=== PATIENT | female | born 1995 ===

== ENCOUNTER 2020-05-22 12:33 | Outpatient (REF) | payer MEDICAID, SELFPAY | END 2020-05-22 12:34 | disposition home or self-care (01) | LOC: HO.LAB 12:33 | PROVIDERS: Visit Provider Internal Medicine | DX: Z20.828 Contact with and (suspected) exposure to other viral communicable diseases (principal) | CPT/HCPCS: C9803; U0003 ==

== ENCOUNTER 2020-08-03 09:26 | Outpatient (REF) | payer MEDICAID, SELFPAY ==
[2020-08-04 12:01] LABS: BV Int Neg Control Negative (Negative); BV Int Pos Control Positive (Positive)
[2020-08-05 03:51] LABS: C. trachomatis RNA TMA NOT DETECTED (NOT DETECTED); N. gonorrhoeae RNA TMA NOT DETECTED (NOT DETECTED)
== END 2020-08-03 09:27 | disposition home or self-care (01) ==
LOC: HO.LAB 09:26
PROVIDERS: Visit Provider Advanced Practice Midwife
DX: N89.8 Other specified noninflammatory disorders of vagina (principal); Z20.2 Contact with and (suspected) exposure to infections with a predominantly sexual mode of transmission; Z12.4 Encounter for screening for malignant neoplasm of cervix
CPT/HCPCS: 87480; 87491; 87510; 87591; 87660; 88142; 99212

== ENCOUNTER 2021-04-17 15:16 | Outpatient (REF) | payer MEDICAID, SELFPAY ==
[2021-04-17 17:15] LABS: Hematocrit 36.2 % (37.0-47.0); Hemoglobin 11.7 g/dl (12.0-16.0); Mean Corpuscular HGB Conc 32.3 g/dl (31.0-35.0); Mean Corpuscular Hemoglobin 27.2 pg (27.0-33.0); Mean Corpuscular Volume 84.2 fL (80.0-98.0); Mean Platelet Volume 8.7 fL (9.4-12.3); Platelet Count 433 X10*3/uL (160-400); Red Cell Distribution Width 13.4 % (11.0-16.0); White Blood Count 9.5 X10*3/uL (4.8-10.8)
[2021-04-17 17:44] LABS: Alanine Aminotransferase 15 U/L (0-31); Albumin Level 4.5 g/dL (3.5-5.0); Alkaline Phosphatase 90 U/L (39-117); Anion Gap 11 (12-20); Aspartate Amino Transferase 18 U/L (5-31); Bilirubin Total 0.2 mg/dL (0.0-1.0); Blood Urea Nitrogen 10 mg/dL (9-16); C Reactive Protein 0.52 mg/dL (< or = 0.50); Calcium 9.6 mg/dL (8.4-10.2); Carbon Dioxide 28 mmol/L (22-29); Chloride 101 mmol/L (96-108); Estimated Glomerular Filt Rate > 60; Glucose Random 81 mg/dL (60-115); Potassium 4.1 mmol/L (3.3-5.1); Sodium 136 mmol/L (135-145); Total Protein 7.7 g/dL (6.5-8.0)
[2021-04-17 18:07] LABS: TSH reflex Free T4 1.21 uIU/mL (0.32-4.0)
[2021-04-22 16:25] LABS: Transglutaminase Ab IgG <1.0 U/mL; Transglutaminase IgA <1.0 U/mL
== END 2021-04-17 15:17 | disposition home or self-care (01) ==
LOC: HO.LAB 15:16
PROVIDERS: PCP Nurse Practitioner Primary Care; Referring Provider Nurse Practitioner Primary Care; Visit Provider Nurse Practitioner Family
DX: K58.1 Irritable bowel syndrome with constipation (principal); K21.9 Gastro-esophageal reflux disease without esophagitis; R10.11 Right upper quadrant pain; R14.0 Abdominal distension (gaseous); Z12.11 Encounter for screening for malignant neoplasm of colon
CPT/HCPCS: 36415; 80053; 83516; 84443; 85027; 86140; 99202

== ENCOUNTER 2021-07-31 18:07 | Emergency (ER) | payer MEDICAID, SELFPAY ==
[2021-07-31 19:06] VITALS: BP 120/67; PULSE 84; RESP 18; TEMP 36.9; O2SAT 96; BMI 38.0
[2021-07-31 19:53] LABS: Appearance Urine CLEAR; Color Urine YELLOW; Glucose Urine UA NEG (NEG); Leukocyte Esterase Urine NEG (NEG); Nitrite Urine NEG (NEG); UACC Culture Trigger NO; Urine Blood TRACE (NEG); Urine Ketones NEG (NEG); Urine Protein NEG (NEG-TRACE)
[2021-07-31 19:56] LABS: UPreg QC Valid YES; Urine Pregnancy NEGATIVE (NEGATIVE)
[2021-07-31 20:01] LABS: Bacteria Urine TRACE /LPF; RBC Urine 0-2 /HPF (0); Squamous Epithelial Cell Urine TRACE /LPF; WBC Urine 0-2 /HPF (0-4)
[2021-07-31 20:17] LABS: MANUAL DIFF FLAG NO
[2021-07-31 20:27] LABS: Basophils Percent Auto 0.4 % (0-2); Eosinophils Absolute Auto 0.1 X10*3/uL (0.0-0.4); Eosinophils Percent Auto 0.7 % (0-4); Hemoglobin 11.9 g/dl (12.0-16.0); Imm Gran Abs Auto 0.01 X10*3/uL (0.00-0.03); Imm Gran Pct Auto 0.1 % (0.0-0.4); Lymphocytes Absolute Auto 2.3 X10*3/uL (1.2-4.9); Lymphocytes Percent Auto 33.1 % (20-40); Mean Corpuscular HGB Conc 32.2 g/dl (31.0-35.0); Mean Corpuscular Hemoglobin 26.8 pg (27.0-33.0); Mean Corpuscular Volume 83.3 fL (80.0-98.0); Mean Platelet Volume 8.8 fL (9.4-12.3); Monocytes Absolute Auto 0.7 X10*3/uL (0.1-1.2); Monocytes Percent Auto 10.5 % (2-11); Neutrophils Absolute Auto 3.8 x10*3/uL (2.0-8.3); Neutrophils Percent Auto 55.2 % (45-73); Platelet Count 337 X10*3/uL (160-400); Red Blood Count 4.44 X10*6/uL (4.20-5.50); Red Cell Distribution Width 14.3 % (11.0-16.0); White Blood Count 6.9 X10*3/uL (4.8-10.8)
[2021-07-31 20:35] LABS: Anion Gap 12 (12-20); Blood Urea Nitrogen 10 mg/dL (9-16); Calcium 9.1 mg/dL (8.4-10.2); Carbon Dioxide 26 mmol/L (22-29); Chloride 105 mmol/L (96-108); Creatinine Clr Calc Pharmacy 104.5; Estimated Glomerular Filt Rate > 60; Glucose Random 71 mg/dL (60-115); Lipase 33 U/L (8-78); Potassium 3.5 mmol/L (3.3-5.1); Sodium 139 mmol/L (135-145)
== END 2021-07-31 23:21 | disposition left against medical advice (07) ==
PROVIDERS: Emergency Provider Emergency Medicine; PCP Nurse Practitioner Primary Care
DX: R10.84 Generalized abdominal pain (principal); R30.0 Dysuria; R11.0 Nausea
CPT/HCPCS: 36415; 80048; 81001; 81025; 83690; 85025; 99283

== ENCOUNTER 2021-09-26 15:17 | Outpatient (REF) | payer MEDICAID, SELFPAY ==
[2021-09-27 13:09] LABS: BV Int Neg Control Negative (Negative); BV Int Pos Control Positive (Positive)
[2021-09-27 13:57] LABS: CT PCR NOT DETECTED (Not Detect.); NG PCR NOT DETECTED (Not Detect.)
== END 2021-09-26 15:18 | disposition home or self-care (01) ==
LOC: HO.LAB 15:17
PROVIDERS: PCP Nurse Practitioner Primary Care; Visit Provider Obstetrics & Gynecology
DX: Z11.3 Encounter for screening for infections with a predominantly sexual mode of transmission (principal); B96.89 Other specified bacterial agents as the cause of diseases classified elsewhere; N76.0 Acute vaginitis
CPT/HCPCS: 87480; 87491; 87510; 87591; 87660

== ENCOUNTER 2021-10-31 09:55 | Outpatient (REF) | payer MEDICAID, SELFPAY ==
[2021-10-31 14:33] LABS: CT PCR NOT DETECTED (Not Detect.); NG PCR NOT DETECTED (Not Detect.)
[2021-11-01 08:03] LABS: HBsAGNum1 0.23 S/CO (0.00-0.99); HIV AB/AG Nonreactive (Nonreactive); HIV Num 1 0.07 S/CO (0.00-0.99); Hepatitis B Surface Antigen Negative (Negative); ~HepC Num1 0.09 S/CO (0.00-0.79); ~Hepatitis C Antibody Nonreactive (Nonreactive)
[2021-11-01 08:47] LABS: BV Int Neg Control Negative (Negative); BV Int Pos Control Positive (Positive)
[2021-11-01 09:02] LABS: Syphilis Screen Reactive (Nonreactive)
[2021-11-07 13:38] LABS: RPR Quantitative Non-Reactive (Nonreactive); T.Pallidum Particle Agg Test Non-Reactive (Nonreactive)
== END 2021-10-31 09:56 | disposition home or self-care (01) ==
LOC: HO.LAB 09:55
PROVIDERS: PCP Nurse Practitioner Primary Care; Visit Provider Obstetrics & Gynecology
DX: Z01.411 Encounter for gynecological examination (general) (routine) with abnormal findings (principal); Z11.4 Encounter for screening for human immunodeficiency virus [HIV]; B96.89 Other specified bacterial agents as the cause of diseases classified elsewhere; N76.0 Acute vaginitis
CPT/HCPCS: 36415; 86592; 86780; 86803; 87340; 87389; 87480; 87491; 87510; 87591; 87660; 99212

== ENCOUNTER 2021-10-31 11:00 | Outpatient (REF) | payer MEDICAID, SELFPAY | END 2021-10-31 11:01 | disposition home or self-care (01) | LOC: HO.LAB 11:00 | PROVIDERS: PCP Nurse Practitioner Primary Care; Visit Provider Obstetrics & Gynecology | DX: Z13.89 Encounter for screening for other disorder (principal) ==

== ENCOUNTER → 2021-12-10 15:13 | Outpatient (BNVA) | payer MEDICAID, SELFPAY | PROVIDERS: PCP Nurse Practitioner Primary Care; Visit Provider Obstetrics & Gynecology | DX: R76.8 Other specified abnormal immunological findings in serum (principal) | CPT/HCPCS: 99212 ==

== ENCOUNTER → 2022-10-01 14:04 | Outpatient (BNVA) | payer MEDICAID, SELFPAY | PROVIDERS: PCP Nurse Practitioner Primary Care; Visit Provider Obstetrics & Gynecology ==

== ENCOUNTER 2023-01-07 19:02 | Outpatient (REF) | payer MEDICAID, SELFPAY ==
[2023-01-08 15:21] LABS: BV Int Neg Control Negative (Negative); BV Int Pos Control Positive (Positive)
== END 2023-01-07 19:03 | disposition home or self-care (01) ==
LOC: HO.HHCLNP 19:02
PROVIDERS: Visit Provider Nurse Practitioner Primary Care
DX: N89.8 Other specified noninflammatory disorders of vagina (principal)
CPT/HCPCS: 87480; 87510; 87660

== ENCOUNTER 2023-02-05 18:31 | Outpatient (REF) | payer MEDICAID, SELFPAY ==
[2023-02-06 03:24] LABS: CT PCR NOT DETECTED (Not Detect.); NG PCR NOT DETECTED (Not Detect.)
[2023-02-06 16:02] LABS: BV Int Neg Control Negative (Negative); BV Int Pos Control Positive (Positive)
== END 2023-02-05 18:32 | disposition home or self-care (01) ==
LOC: HO.HHCLNP 18:31
PROVIDERS: Visit Provider Registered Nurse
DX: N89.8 Other specified noninflammatory disorders of vagina (principal)
CPT/HCPCS: 0353U; 87480; 87510; 87660

== ENCOUNTER 2023-04-27 10:35 | Outpatient (REF) | payer MEDICAID, SELFPAY ==
[2023-04-28 02:22] LABS: CT PCR NOT DETECTED (Not Detect.); NG PCR NOT DETECTED (Not Detect.)
[2023-04-28 12:08] LABS: BV Int Neg Control Negative (Negative); BV Int Pos Control Positive (Positive)
== END 2023-04-27 10:36 | disposition home or self-care (01) ==
LOC: HO.LNP 10:35
PROVIDERS: PCP Nurse Practitioner Primary Care; Visit Provider Advanced Practice Midwife
DX: N89.8 Other specified noninflammatory disorders of vagina (principal); B00.9 Herpesviral infection, unspecified
CPT/HCPCS: 0353U; 87480; 87510; 87660; 99212

== ENCOUNTER 2023-04-27 10:35 | Outpatient (AMB) | payer MEDICAID, SELFPAY ==
[2023-04-27 10:36] VITALS: BP 112/70; BMI 41.0
--- NOTE | 2023-04-27 10:36 | A.OFFVIS_ITS ---
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 Present (Aidyn) Allergies shellfish derived [SHELLFISH DERIVED] Allergy (Severe, Verified 04/27/23 10:40) SWELLING cat dander [CATS] Allergy (Unknown, Verified 04/27/23 10:40) UNKNOWN crab Allergy (Unknown, Verified 04/27/23 10:40) UNKNOWN DUST Allergy (Unknown, Uncoded 04/27/23 10:40) RASH PEANUT BUTTER Allergy (Unknown, Uncoded 04/27/23 10:40) UNKNOWN Peanut Butter Flavor Allergy (Unknown, Uncoded 04/27/23 10:40) Swelling peanuts Allergy (Unknown, Uncoded 04/27/23 10:40) swollen pollen Allergy (Unknown, Uncoded 04/27/23 10:40) rash shellfish Allergy (Unknown, Uncoded 04/27/23 10:40) Swelling nail polsh remover Adverse Reaction (Intermediate, Uncoded 04/27/23 10:40) Rash Medication List - Last Reconciled 04/27/23 by Madison Oliveira CNM albuterol sulfate 90 mcg/actuation 1 inh inhalation QID cholecalciferol (vitamin D3) 50 mcg PO DAILY fluoxetine 20 mg PO QAM omeprazole 40 mg PO DAILY prenat.vits,maryanne,[id number]-[id number] 1 tab PO BEDTIME sennosides (Natural Senna Laxative) 8.6 mg PO BEDTIME trazodone 0 mg PO valacyclovir (Valtrex) 500 mg PO DAILY Is last menstrual period known: No (not sure stated beginning of MAR) Post menopausal: No HPI vaginal discharge HPI Details Patient notes vaginal discharge it is hard to describe whether not it is white and chunky or has an odor but not a particularly bad 1. She recently had a herpes outbreak but it is already healed she is on day 6 of a Valtrex course that she started she takes it typically for 7 days when she does get an outbreak she has had maybe 3 since 2019 when she was 1st diagnosed when it appeared like a shaving cut but a culture was done and she was shocked to find out it was herpes at the time. This outbreak started and she has been having a pain in her upper left thigh there is no swelling that she can perceive (nor I) She has a new partner for the last 3 or 4 months and uses condoms with him he has had a modification to his penis with Perles implanted in them. She is wondering if that injured her in some way. She does not really keep track of her. 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 [facility]LY [facility] Medical History Depression Surgical History Horseheads teeth removed Patient Tobacco Use Status: Never used Tobacco Female Reproductive History Menstrual Age of Menarche: 10 Duration of menses: 6-7 days control method: none Total pregnancies: 2 Full term: 1 Number of Living Children: 1 Ab spontaneous: 1 Date of last pap smear: 08/06/20 (negative) History of abnormal pap smear: Yes Physical Exam Vital Signs: Last Vital Signs BP 112/70 04/27/23 10:36 BMI result Body Mass Index 41.0 Other: No evidence of herpetic lesion at this point and no lymphanopathy palpable. External Female Exam: normal external appearance and normal appearance of the urethra Speculum Exam - Vagina: normal appearance of the vagina and normal vaginal discharge Speculum Exam - Cervix: normal appearance of the cervix and Cervical os closed Assessment & Plan Assessment & Plan (1) Vaginal discharge: Code(s): N89.8 - Other specified noninflammatory disorders of vagina (2) Recurrent HSV (herpes simplex virus): Code(s): B00.9 - Herpesviral infection, unspecified Plan Discussed safer sex she always uses condoms that is what she wants to use for control. Discussed the possibility that what she is feeling is inflammation of the lymph glands having to do with the herpes outbreak that is now completely healed over. She is going to finish the Valtrex to day 7 which is her usual plan. I recommend she start keeping careful track of her menstrual cycle. Also reviewed whether not she been screen for diabetes with her annual exams and she did have fasting blood work done last year so she probably has been. We will see her for an annual exam coming up I suspect that her symptoms will probably ameliorate. Discussed the possibility also that she may have some discomfort from his modification. Coding Level of Care Code Est Pt Level 3 ([id number]) Diagnoses Vaginal discharge N89.8 Recurrent HSV (herpes simplex virus) B00.9
== END 2023-04-27 11:22 | disposition home or self-care (01) ==
PROVIDERS: PCP Nurse Practitioner Primary Care; Visit Provider Advanced Practice Midwife
DX: N89.8 Other specified noninflammatory disorders of vagina (principal); B00.9 Herpesviral infection, unspecified
CPT/HCPCS: 99213

== ENCOUNTER 2023-06-17 14:59 | Outpatient (AMB) | payer MEDICAID, SELFPAY ==
--- OUTSIDE RECORDS SUMMARY | 2023-06-17 15:01 | XMS_ITS | Continuity of Care Document ---
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, Shirley Leyva Primary Care Physician Encounter [facility] Date(s): 11/06/22 - 11/07/[address] [address]- Discharge Disposition: A-D/C Home Attending Physician: Isabel Webster MD Admitting Physician: Isabel Webster MD Referring Physician: Isabel Webster MD Allergies, Adverse Reactions, Alerts Substance Reaction Severity Status shellfish Facial swelling Active Cats Sneezing Active Dust Sneezing Active Peanuts YAW - Difficulty in breathing Active Medications albuterol CFC free 90 mcg/inh inhalation aerosol 2 puffs, Inhalation, 4 times a day, PRN for wheezing, # 25 Gm, 1 Refills, Maintenance, Aerosol Start Date: 12/08/11 Status: Ordered Doxepin By Mouth, 0 Refills, Maintenance, 11/05/22 12:42:00 EDT, Partial fill upon patient request if the prescription is for a schedule II opioid drug. Start Date: 11/05/22 Status: Ordered Gabapentin See Instructions, By Mouth, 0 Refills, Maintenance, 11/05/22 12:41:00 EDT, Partial fill upon patient request if the prescription is for a schedule II opioid drug. Start Date: 11/05/22 Status: Ordered Nabumetone By Mouth, Daily, 0 Refills, Maintenance, 11/05/22 12:42:00 EDT, Partial fill upon patient request if the prescription is for a schedule II opioid drug. Start Date: 11/05/22 Status: Ordered Omeprazole See Instructions, By Mouth Daily, 0 Refills, Maintenance, 11/05/22 12:47:00 EDT, Partial fill upon patient request if the prescription is for a schedule II opioid drug. Start Date: 11/05/22 Status: Ordered OxyCODONE 5mg/5mL Liquid 5 mg, Solution, By Mouth, Every 6 hours, PRN for Pain , Severe, Routine, 11/06/22 16:39:00 EDT Start Date: 11/06/22 Stop Date: 11/07/22 Status: Discontinued propranolol 10 mg oral tablet See Instructions, 1 tablet By Mouth 2 times a day, Refills 0, Maintenance, 11/05/22 12:41:00 EDT, Instructions Replace Required Details, Partial fill upon patient request if the prescription is for aschedule II opioid drug. Start Date: 11/05/22 Status: Ordered Valtrex 1 gm oral tablet 1 tablet = 1 Gm, By Mouth, 2 times a day, 0 Refills, Maintenance, 11/05/22 12:42:00 EDT, Partial fill upon patient request if the prescription is for a schedule II opioid drug. Start Date: 11/05/22 Status: Ordered Problem List Condition Confirmation Course Effective Dates Status Health St atus Informant Asthma 1 Confirmed Active Severe obesity Confirmed Active 1Has not used inhaler in 3 years Vital Signs Most recent to oldest [Reference Range]: 1 2 3 Height 153 cm (11/06/22 7:21 PM) 153 cm (11/06/22 2:56 PM) 153 cm (11/05/22 12:52 PM) Weight 93.8 kg (11/06/22 7:21 PM) Oxygen Saturation [94-100 %] 100 % (11/07/22 7:00 AM) 99 % (11/07/22 3:00 AM) 99 % (11/06/22 11:00 PM) Pulse Rate [55-90 bpm] 93 bpm *H* (11/07/22 7:00 AM) 63 bpm (11/07/22 3:00 AM) 71 bpm (11/06/22 11:00 PM) Body Mass Index [18.5-24.99 kg/m2] 40.07 kg/m2 *>HHI* (11/06/22 7:21 PM) Blood Pressure [90-138/55-84 mm Hg] 135/77mm Hg (11/07/22 7:00 AM) 119/63mm Hg (11/07/22 3:00 AM) 112/54mm Hg (11/06/22 11:00 PM) Respiratory Rate [16-30 br/min] 20 br/min (11/07/22 7:00 AM) 18 br/min (11/07/22 6:57 AM) 18 br/min (11/07/22 3:00 AM) Temperature [96.8-100.4 DegF] 97.7 DegF (11/07/22 7:00 AM) 97.9 DegF (11/07/22 3:00 AM) 98.7 DegF (11/06/22 11:00 PM) Liters per Minute 6 L/min (11/06/22 5:45 PM) 6 L/min (11/06/22 5:30 PM) Mode of Delivery (Oxygen) Room air (11/07/22 7:00 AM) Room air (11/07/22 3:00 AM) Room air (11/06/22 11:00 PM) Blood pressure sites Arm, left (11/07/22 7:00 AM) Arm, left (11/07/22 3:00 AM) Arm, left (11/06/22 11:00 PM) Temperature Route Oral (11/07/22 7:00 AM) Oral (11/07/22 3:00 AM) Oral (11/06/22 11:00 PM) Dry Weight 93.8 kg (11/06/22 7:21 PM) 93.8 kg (11/06/22 2:56 PM) 95.3 kg (11/05/22 12:52 PM) Weight Obtained Via Patient/family state d (11/06/22 7:21 PM) Dry Weight Obtained Via Standing scale (11/06/22 2:56 PM) Patient/family stated (11/05/22 12:52 PM) Social History Social History Type Response Smoking Status Former smoker entered on: 08/01/17 Sex History and physical note * Event Display: History and Physical Hospital Authored Date: * Event Display: History and Physical Hospital Authored Date: Note * Event Display: Adult Preadmission Health Questionnaire Authored Date: * Elyse Chase RN: PERFORM Event Display: Patient Education/Instruction Authored Date: Inpatient Adult Discharge Instructions [address] [address] Name: TOO MEDEIROS : 1995 Visit: 11/06/2022 12:35:00 Current Date: 11/07/2022 09:28 Account: [id number] Inpatient Adult Discharge Instructions We would like to thank you for allowing us to assist you with your healthcare needs. The following includes patient education materials and information regarding your injury/illness. Our entire staffstrives to provide an excellent experience for our patients and their families. PLEASE ENSURE YOU FOLLOW-UP PER THE INSTRUCTIONS BELOW! ?? YOUR OPINION IS IMPORTANT TO US! Please complete the survey you may receive by mail or email. Your feedback will be used to make improvements to the healthcare experiences of our patients and their families. Surveys are administered by [employer] ?? If further treatment with your primary care physician or another doctor is recommended, it is important for you to keep the appointment. Call your primary care physician or return to the Emergency Department immediately if your condition worsens, fails to improve, or new symptoms develop. If you need to find a doctor, you can call [facility] [employer] for a referral at [phone] or toll free at [phone]) or log in to [email or web address].. ?? You can view and manage your care through the patient portal or by using a health care carlitos of your choosing. [employer] is a website that allows you to securely view your medical information including your hospital discharge summary, office visit summaries, medications and follow-up visits. You can also request appointments, renew medications, and request access to your medical information using a health care carlitos of your choosing, or just ask a question. You can enroll at [email or web address] or register during your next office visit. You have been discharged from [facility], Patient Care Unit: SW6. If you have any questions regarding these instructions after you leave, please call us and we will be happy to assist you. [facility] Your Care Team Attending Physician Isabel Webster MD Consulting Providers Isabel Webster MD Discharging Providers Sav[place] MD, Isabel L Reason for Admission SCOTT SEPTOPLASTY TONSILLECTOMY OVN CS Tests Performed Below is a partial list of the tests performed during your hospitalization. You may have had other tests and procedures not included in this list. Please discuss all test results with your provider. Primary Care Provider Claudia LING, Shirley Leyva Advance Directive Health Care Proxy on File No Patient has a Designated Caregiver: No Discharge Vitals Temperature: 97.7 DegF Height: 153 cm Pulse Rate:??93 bpm??High Weight: 93.8 kg Respiratory Rate: 20 br/min Body Mass Index:??40.07 kg/m2??Critical Systolic Blood Pressure: 135 mm Hg Body surface area: 2 Diastolic Blood Pressure: 77 mm Hg ?? Oxygen Saturation: 100 % ?? Studies Pending All tests and labs ordered during this hospital stay have been completed unless listed below. Please discuss all pending results with your provider listed above in these instructions. ?? Pathology Tissue Request ([id number]) What to do next Instructions From Your Doctor Discharge Orders Instructions from your Care Team Refer to attached MD postoperative discharge instructions Call MD for any periorbital ecchymosis or visual changes Discharge Prescriptions : Written Wound??care to??nares : Change drip pad under nose as needed NO blowing nose. NO straws. Sneeze with mouth open Do NOT bend over at waist. NO heavy lifting or straining Office will call for appointment in 1 month. Appointment next week not needed- will cancel You Need to Schedule the Following Appointments Follow Up with??Isabel Webster Where: [address] [place] [address]- Business (1) Follow Up with??Shirley Taylor When:??In 0 days Where: [address] [facility], [place] [address]- Business (1) Discharge Medications BERMAN MEDEIROS TOO :1995 Visit Date:11/06/2022 Medications: Please continue your medications until treatment is completed or stopped by your provider. Medications not listed below should be discontinued. Discuss any questions related to medications with your provider. What How Much When Instructions Next Dose Unchanged Albuterol (albuterol CFC free 90 mcg/ inh inhalation aerosol) 2 puff(s) Inhalation 4 times a day as needed for for wheezing as ordered Unchanged Doxepin Oral Unchanged Gabapentin See instructions By Mouth ?? as ordered Unchanged Nabumetone Oral Daily Unchanged Omeprazole See instructions By Mouth Daily ?? as ordered Unchanged Propranolol (propranolol 10 mg oral tablet) See instructions 1 tablet By Mouth 2 times a day ?? as ordered Unchanged ValACYclovir (Valtrex 1 gm oral tablet) 1 tab(s) Oral Twice a day as ordered Test Results Below is a partial list of the most recent Laboratory test results done prior to this discharge. You may have had other tests and procedures not included in this list. Please discuss all test resultswith your provider. Allergies (NKA means No Known Allergies) Cats??(Sneezing) Dust??(Sneezing) Peanuts??(YAW - Difficulty in breathing) shellfish??(Facial swelling) Problems Active Problems??(2) Asthma?? Severe obesity?? Education Materials Below is the list of Educational Leaflet Providered with your Discharge Instructions. Surgery Medical Daystay Surgical Overnight Discharge Instructions?? Valuables and Belongings I fully understand and agree that [facility] accepts no responsibility for all my personal property including clothing, toilet articles, radios, jewelry, dentures, hearing aids, rings, money, or any other property that is in my possession or is brought to me after admission. I understand certain valuables may be placed in a hospital safe for a short period of time. I understand that the hospital is not liable for loss or damage due to accident, fire, or other natural occurrence while said property is in the safe. I accept full responsibility for any personal property that I keep with me, and will not hold the hospital responsible in case of loss or disappearance. I acknowledge that i have been encouraged to send valuables and belongings home. ?? Review of Valuable and Belonging List: With patient Date for Pt to Sign Valuables/Belongings: 11/06/22 19:29:00 ?? Other Discharge Information ? Pulmonary Rehab Status?? Pulmonary Rehab Discharge Status?? Respiratory Rate: 20 br/min ? Common Emergency Awareness Tips IS IT A STROKE? Act FAST and Check for these signs: FACE Does the face look uneven? ARM Does one arm drift down? SPEECH Does their speech sound strange? TIME Call at any sign of stroke ?? Heart Attack Signs Chest discomfort: Most heart attacks involve discomfort in the center of the chest and lasts more than a few minutes, or goes away and comes back. It can feel like uncomfortable pressure, squeezing, fullness or pain. Discomfort in upper body: Symptoms can include pain or discomfort in one or both arms, back, neck, jaw or stomach. Shortness of breath: With or without discomfort. Other signs: Breaking out in a cold sweat, nausea, or lightheaded. Remember, MINUTES DO MATTER. If you experience any of these heart attack warning signs, call to get immediate medical attention! ?? Smoking can increase your chances of developing chronic health problems and can cause harmful effects to other family members in your house. If you smoke, you are strongly encouraged to quit. Please call [facility] [employer] [facility] at [phone] or [phone] ([phone]) or log in to [email or web address] for referrals to smoking cessation programs. ?? 290 Suicide & Crisis Lifeline is available 22/12 if you or someone you know needs to find a reason to keep living. By calling 811 you'll be connected to a skilled, trained counselor at a crisis center in your area. INPATIENT DISCHARGE INSTRUCTIONS SIGNATURE PAGE CULLEN MENDESOTOO Location:[facility] Registration Date and Time:11/06/2022 12:35 EDT Primary Care Physician: Shirley Taylor NP, Attending Physician: Isabel Webster MD, I TOO BANGURA, have received the above patient education materials/instructions and have verbalized understanding. If ambulance or transport services are being used I further acknowledge being given a choice of service. ?? If you need to contact me, please call me at this number: . Patient/Cook House Supervisor Name: Patient/Cook House Supervisor Signature: Relationship to Patient: Witness Name/Signature: Date: * Beverly Wright RN: PERFORM, SIGN, VERIFY Event Display: Patient Education Handout Authored Date: [id number] * Beverly Wright RN: PERFORM Event Display: Patient Education Leaflets Authored Date: [id number] Surgery Medical Daystay Surgical Overnight Discharge Instructions ?? 295 Medical Daystay/Surgical Overnight Discharge Instructions ? Since your coordination and judgment may be altered by medication and/or anesthesia, a responsible adult must drive you home from the hospital. ? If you have received medication for pain or sedation while under our care, you should not drive, operate machinery, drink alcohol, or sign any legal documents for 24 hours.?? You should have someone with you at home tonight. ? Remain at home the day of discharge.?? You may be up and about unless otherwise instructed by your physician. ? You may resume your daily prescription medication schedule.?? Any depressant medication should be avoided for 24 hours unless otherwise instructed by your surgeon or anesthesiologist. ? Call your physician for a follow-up appointment.? If you experience unusual or severe pain not relied by your pain medication, excessive bleedingor drainage, persistent nausea and vomiting, excessive swelling or redness, foul odor from incisionsite or fever over 100.6F, you need to call your physician. ? A follow-up phone call by a nurse will be made the day after your procedure.?? If you have stayed with us over night, you will not be receiving a follow-up phone call. ? Nausea and vomiting are a common side effect of prescription pain medication.?? We recommend that pills are not taken on an empty stomach.?? While taking any prescription pain medication you should not drive or drink alcohol. ? Cardiology * Event Display: Cardiac Rhythm Strips Authored Date: Hospital Progress note * Elyse Chase RN: PERFORM, SIGN, VERIFY Event Display: Progress Note Hospital Authored Date: Patient: TOO BANGURA Age: 27 years Sex: Female : 1995 Associated Diagnoses: None Author: Elyse Chase RN Findings Problem Related to Alteration in Comfort : Alteration in Comfort/new 11/07/2022 2:00 EDT Alteration in Comfort Related to Surgery Goals & Outcomes: Comfort Pt will report acceptable level of comfort & pain control, Pt will state importance of adhering to pain strategy regime, Pt will demonstrate necessary skills to manage pain, Non-verbal indicators will indicate comfort/pain control Interventions Implemented: Comfort Assess pain using appropriate pain scale/tools, Assess aggravating factors & prevent them accordingly, Assess alleviating factors & promote them accordingly BH Goals/Interventions, Comfort Yes Comfort, Problem Start 11/07/2022 2:55 Reviewed plan with, Comfort Patient Patient Progression, Comfort Pt progressing according to plan Comfort, Problem Ongoing Yes . Evaluation Alert and oriented times 3. Pt resting in the bed at present with head of bed elevated. Verbalized that she is looking forward to going home today once seen by ENT. Dexamethasone given as ordered. Occasional nasal dripping of blood continued which pt wiped with gauze. IV site covered and pt showered. Verbalized agreement with plan for discharge to home. Discharge instructions reviewed with pt verbalizing understanding and acceptance of info. Opted to ambulate to the door accompanied by the nurse. ENT discharge instructions accompanied paperwork. Denied questions at discharge. PRN angio remocved prior to discharge. 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 * Isabel Webster MD: PERFORM, SIGN, VERIFY Event Display: Progress Note Hospital Authored Date: Patient: TOO BANGURA Age: 27 years Sex: Female : 1995 Associated Diagnoses: None Author: Isabel Webster MD POD1 tonsillectomy septoplasty and turbinate reduction STEPHEN overnight, pain controlled Slept poorly No desats C/o uvular swelling Tolerating po Review of Systems Review of Systems Cardiovascular: no chest pain. Physical Examination Vital Signs Vitals : VITALS 11/07/2022 7:57 EDT Early Warning Score 2.00 11/07/2022 7:00 EDT Temperature 97.7 DegF Temperature Route Oral Pulse Rate 93 bpm H Respiratory Rate 20 br/min Systolic Blood Pressure 135 mm Hg Diastolic Blood Pressure 77 mm Hg Blood pressure sites Arm, left Pulse Pressure 58 mm Hg Oxygen Saturation 100 % Mode of Delivery (Oxygen) Room air 11/07/2022 6:58 EDT Early Warning Score 2.00 11/07/2022 6:57 EDT Respiratory Rate 18 br/min Pain Intensity 10 11/07/2022 6:56 EDT Pain Intensity 10 11/07/2022 6:28 EDT Pain Intensity 10 11/07/2022 3:36 EDT Early Warning Score 2.00 11/07/2022 3:00 EDT Temperature 97.9 DegF Temperature Route Oral Pulse Rate 63 bpm Respiratory Rate 18 br/min Systolic Blood Pressure 119 mm Hg Diastolic Blood Pressure 63 mm Hg Blood pressure sites Arm, left Oxygen Saturation 99 % Mode of Delivery (Oxygen) Room air 11/07/2022 2:52 EDT 1 - 10 pain scale score 8 11/07/2022 0:45 EDT Early Warning Score 0.00 11/07/2022 0:45 EDT Respiratory Rate 18 br/min Pain Intensity 6 11/06/2022 23:58 EDT Early Warning Score 0.00 11/06/2022 23:44 EDT Respiratory Rate 18 br/min Pain Intensity 6 11/06/2022 23:36 EDT Early Warning Score 0.00 11/06/2022 23:00 EDT Temperature 98.7 DegF Temperature Route Oral Pulse Rate 71 bpm Respiratory Rate 18 br/min Systolic Blood Pressure 112 mm Hg Diastolic Blood Pressure 54 mm Hg L Blood pressure sites Arm, left Oxygen Saturation 99 % Mode of Delivery (Oxygen) Room air 11/06/2022 22:44 EDT Pain Intensity 8 11/06/2022 19:44 EDT Early Warning Score 0.00 11/06/2022 19:33 EDT Early Warning Score 0.00 11/06/2022 19:33 EDT Respiratory Rate 17 br/min Pain Intensity 11/06/2022 19:30 EDT Early Warning Score 0.00 11/06/2022 19:22 EDT Early Warning Score 0.00 11/06/2022 19:21 EDT Height 153 cm Weight 93.8 kg Dry Weight 93.8 kg Body Mass Index 40.07 kg/m2 >HHI Body surface area 2 BSA Emmons 1.9 Weight lb/oz 206 lb 13 oz Temperature 99.5 DegF Temperature Route Axillary Pulse Rate 93 bpm H Respiratory Rate 16 br/min Systolic Blood Pressure 137 mm Hg Diastolic Blood Pressure 70 mm Hg Blood pressure sites Arm, left Mean Arterial Pressure 92 mm Hg Pulse Pressure 67 mm Hg Oxygen Saturation 99 % Mode of Delivery (Oxygen) Room air 11/06/2022 19:16 EDT Early Warning Score 2.00 11/06/2022 19:00 EDT Temperature 98.2 DegF Temperature Route Temporal Heart Rate Monitored 75 bpm Respiratory Rate 16 br/min Vented No Systolic Blood Pressure 134 mm Hg Diastolic Blood Pressure 86 mm Hg H Blood pressure sites Arm, right Pulse Pressure 48 mm Hg Oxygen Saturation 97 % Mode of Delivery (Oxygen) Room air Pain Location Throat 1 - 10 pain scale score 6 11/06/2022 18:45 EDT Heart Rate Monitored 74 bpm Respiratory Rate 16 br/min Vented No Systolic Blood Pressure 138 mm Hg (Modified) Diastolic Blood Pressure 94 mm Hg H (Modified) Blood pressure sites Arm, right Pulse Pressure 44 mm Hg (Modified) Oxygen Saturation 96 % Mode of Delivery (Oxygen) Room air 11/06/2022 18:30 EDT Heart Rate Monitored 68 bpm Respiratory Rate 16 br/min Respiratory Rate 16 br/min Vented No Systolic Blood Pressure 137 mm Hg Diastolic Blood Pressure 84 mm Hg Blood pressure sites Arm, right Pulse Pressure 53 mm Hg Oxygen Saturation 96 % Mode of Delivery (Oxygen) Room air Pain Location Throat Pain Intensity 7 Pain Intensity 7 1 - 10 pain scale score 7 11/06/2022 18:19 EDT Respiratory Rate 13 br/min L Pain Intensity 10 11/06/2022 18:15 EDT Temperature 97.7 DegF Temperature Route Temporal Heart Rate Monitored 71 bpm (Modified) Respiratory Rate 15 br/min L Vented No Systolic Blood Pressure 126 mm Hg Diastolic Blood Pressure 70 mm Hg Blood pressure sites Arm, right Pulse Pressure 56 mm Hg Oxygen Saturation 95 % Mode of Delivery (Oxygen) Room air Pain Location Throat 1 - 10 pain scale score 10 11/06/2022 18:08 EDT Heart Rate Monitored 73 bpm Respiratory Rate 16 br/min Vented No Systolic Blood Pressure 116 mm Hg Diastolic Blood Pressure 70 mm Hg Pulse Pressure 46 mm Hg Oxygen Saturation 94 % 11/06/2022 18:00 EDT Heart Rate Monitored 81 bpm Heart Rate Monitored 81 bpm Respiratory Rate 23 br/min Vented No Vented No Systolic Blood Pressure 139 mm Hg H Systolic Blood Pressure 116 mm Hg Diastolic Blood Pressure 90 mm Hg H Diastolic Blood Pressure 70 mm Hg Blood pressure sites Arm, right Blood pressure sites Arm, right Pulse Pressure 49 mm Hg Pulse Pressure 46 mm Hg Oxygen Saturation 97 % Oxygen Saturation 97 % Mode of Delivery (Oxygen) Room air Mode of Delivery (Oxygen) Room air Pain Location Throat Pain Intensity 10 1 - 10 pain scale score 10 11/06/2022 17:45 EDT Heart Rate Monitored 89 bpm Respiratory Rate 21 br/min Vented No Systolic Blood Pressure 139 mm Hg H Diastolic Blood Pressure 90 mm Hg H Blood pressure sites Arm, right Pulse Pressure 49 mm Hg Oxygen Saturation 99 % Liters per Minute 6 L/min Mode of Delivery (Oxygen) Simple face mask 11/06/2022 17:30 EDT Temperature 97.8 DegF Temperature Route Temporal Heart Rate Monitored 91 bpm H Vented No Systolic Blood Pressure 141 mm Hg H Diastolic Blood Pressure 96 mm Hg H Blood pressure sites Arm, right Pulse Pressure 45 mm Hg Oxygen Saturation 98 % Liters per Minute 6 L/min Mode of Delivery (Oxygen) Simple face mask 11/06/2022 14:56 EDT Height 153 cm Dry Weight 93.8 kg Temperature 98.5 DegF Temperature Route Temporal Pulse Rate 65 bpm Respiratory Rate 10 br/min L Systolic Blood Pressure 105 mm Hg Diastolic Blood Pressure 53 mm Hg L Mean Arterial Pressure 70 mm Hg Oxygen Saturation 99 % Mode of Delivery (Oxygen) Room air 1 - 10 pain scale score 6 . Weight : Weight lb/oz 11/06/2022 19:21 EDT Weight lb/oz 206 lb 13 oz . BMI : Body Mass Index 11/06/2022 19:21 EDT Body Mass Index 40.07 kg/m2 >HHI . Awake alert NAD Nose hemostatic Tonsillar fossae hemostatic Uvula edematous No increased WOB, AP: Stable after Tonsillectomy, septoplasty and turbinate reduction. No desats. Please give 6mg decadron for uvular edema - order placed. Discharge after decadron Dental soft diet Rx sent to patient's pharmacy through office EMR - Tylenol, motrin and oxycodone Signed: Isabel Webster MD * Esthela Antonio RN: PERFORM, SIGN, VERIFY Event Display: Progress Note Hospital Authored Date: Patient: TOO BANGURA Age: 27 years Sex: Female : 1995 Associated Diagnoses: None Author: Esthela Antonio RN Findings Problem Related to Alteration in Comfort : Alteration in Comfort/new 11/07/2022 2:00 EDT Alteration in Comfort Related to Surgery Goals & Outcomes: Comfort Pt will report acceptable level of comfort & pain control, Pt will state importance of adhering to pain strategy regime, Pt will demonstrate necessary skills to manage pain, Non-verbal indicators will indicate comfort/pain control Interventions Implemented: Comfort Assess pain using appropriate pain scale/tools, Assess aggravating factors & prevent them accordingly, Assess alleviating factors & promote them accordingly BH Goals/Interventions, Comfort Yes Comfort, Problem Start 11/07/2022 2:55 Reviewed plan with, Comfort Patient Patient Progression, Comfort Pt progressing according to plan Comfort, Problem Ongoing Yes . Nursing Data Vital Signs : VITAL SIGNS SECTION 11/07/2022 3:00 EDT Temperature 97.9 DegF Temperature Route Oral Pulse Rate 63 bpm Respiratory Rate 18 br/min Systolic Blood Pressure 119 mm Hg Diastolic Blood Pressure 63 mm Hg Blood pressure sites Arm, left Oxygen Saturation 99 % Mode of Delivery (Oxygen) Room air 11/06/2022 23:00 EDT Temperature 98.7 DegF Temperature Route Oral Pulse Rate 71 bpm Respiratory Rate 18 br/min Systolic Blood Pressure 112 mm Hg Diastolic Blood Pressure 54 mm Hg L Blood pressure sites Arm, left Oxygen Saturation 99 % Mode of Delivery (Oxygen) Room air 11/06/2022 19:21 EDT Temperature 99.5 DegF Temperature Route Axillary Pulse Rate 93 bpm H Respiratory Rate 16 br/min Systolic Blood Pressure 137 mm Hg Diastolic Blood Pressure 70 mm Hg Blood pressure sites Arm, left Mean Arterial Pressure 92 mm Hg Pulse Pressure 67 mm Hg Oxygen Saturation 99 % Mode of Delivery (Oxygen) Room air . Narrative/Incidental Please see interventions listed in care plan(s) above. Patient is alert and oriented x4. Denies chest pain. No edema, +PP and +CMS. C- boots on bilateral lower extremities. Lungs are clear on room air and denies SOB. Non productive cough noted. On continuous O2 monitoring, sating >97% on room air. Abdomen is soft, round, and non tender. Bowel sounds present and denies flatus. Tolerating dental soft diet and denies nausea and vomiting. Last bowel movement /7. Voiding clear yellow urine. Skin is intact. Scant blood from nose. Patient reports 8/10 pain, especially when swallowing. Medicated with scheduled medications and PRN ibuprofen and oxycodone, with good effect. Jaw bra on neck for comfort. Ambulating as a standby, steady gait. Patient is resting comfortably in bed, wheels locked, in lowest position. Call snow is in reach and patient rings appropriately.. Patient Care team information Care Team Personnel Name: Shirley Taylor NP Position: [facility] Outreach Member Role: PCP Address: Address: [address], [place] [address] Name: Karena Gee Position: [facility] TA Member Role: Patient Care Provider Name: Esthela Antonio RN Position: [facility] RN Member Role: Patient Care Provider Care Team Related Persons Name: DEYA BERMAN Address: home [address] [address] Name: ANNALEE FIELDS Name: JANESSA MEDEIROS Address: home [address] [place] [address]
[2023-06-17 15:02] VITALS: BP 110/70; BMI 41.6
--- NOTE | 2023-06-17 15:02 | MHC.OFFVIS ---
Intake Vital Signs 06/17/23 15:02 Height 5 ft Weight 213 lb BMI 41.6 BP 110/70 Intake Visit Reasons: vaginal discharge w/outbreak Intake Note: possible yeast infection, has an odor, having brownish discharge, and was having lower abdminal pain pain 2 weeks ago. Super[employer] Required: No Information Interpreted: non-clinical & clinical Contract Administrator: Contract Administrator Present (Aidyn) Allergies shellfish derived [SHELLFISH DERIVED] Allergy (Severe, Verified 06/17/23 15:06) SWELLING cat dander [CATS] Allergy (Unknown, Verified 06/17/23 15:06) UNKNOWN crab Allergy (Unknown, Verified 06/17/23 15:06) UNKNOWN DUST Allergy (Unknown, Uncoded 06/17/23 15:06) RASH PEANUT BUTTER Allergy (Unknown, Uncoded 06/17/23 15:06) UNKNOWN Peanut Butter Flavor Allergy (Unknown, Uncoded 06/17/23 15:06) Swelling peanuts Allergy (Unknown, Uncoded 06/17/23 15:06) swollen pollen Allergy (Unknown, Uncoded 06/17/23 15:06) rash shellfish Allergy (Unknown, Uncoded 06/17/23 15:06) Swelling nail polsh remover Adverse Reaction (Intermediate, Uncoded 06/17/23 15:06) Rash Medication List - Last Reconciled 06/17/23 by Madison Oliveira CNM albuterol sulfate 90 mcg/actuation 1 inh inhalation QID cholecalciferol (vitamin D3) 50 mcg PO DAILY duloxetine 40 mg PO DAILY fluoxetine 20 mg PO QAM gabapentin 300 mg PO BID omeprazole 40 mg PO DAILY propranolol 10 - 20 mg PO BID PRN trazodone 0 mg PO trazodone 100 mg PO BEDTIME valacyclovir (Valtrex) 500 mg PO DAILY Is last menstrual period known: Yes Last menstrual period: 06/01/23 Post menopausal: No HPI vaginal discharge w/outbreak HPI Details Patient is here could she just wants to get checked she is worried that she might have bacterial vaginosis she thought she had a kind of a sex smell after intercourse though she says she makes her partner use condoms. This is a new partner for her. She has a history of herpes that she discloses to her partner's and she uses protection and avoids risky behavior when she has having an outbreak normally she gets maybe 1 year but she did have a couple closer together this fall she just recently finished to treatment she normally takes valacyclovir for 7 days when she has an outbreak she is very careful with hand washing and uses care around her daughter. She is worried about STDs condoms are her method of control when she is sexually active. [facility] Medical History Depression Surgical History [place] teeth removed Social History Patient Tobacco Use Status: Never used Tobacco Female Reproductive History Menstrual Age of Menarche: 10 Duration of menses: 3-5 days Date of last menstrual period: 06/01/23 control method: none Total pregnancies: 2 Full term: 1 Number of Living Children: 1 Ab spontaneous: 1 Date of last pap smear: 08/06/20 (negative) Physical Exam Vital Signs: Last Vital Signs BP 110/70 06/17/23 15:02 BMI result Body Mass Index 41.6 Other: d external exam is within normal limits no lesions or scars from lesions visible no adnexal tenderness either. Vagina pink and moist with very clear discharge that scant cervix is multiparous pink smooth. Uterus midposition mobile nontender good tone with Kegel. Tiny amount of blood on Q-tip from swabbing cervix but no blood otherwise or other abnormal secretions External Female Exam: normal external appearance Speculum Exam - Vagina: normal appearance of the vagina and normal vaginal discharge Speculum Exam - Cervix: normal appearance of the cervix Bimanual exam- vagina & uterus: normal bimanual exam, uterine size normal, consistency normal, uterine mobility normal, uterine shape normal and non-tender Bimanual Exam- Adnexa, other: normal adnexae, no masses and No adnexal tenderness Assessment & Plan Assessment & Plan (1) Encounter for screening examination for sexually transmitted disease: Code(s): Z11.3 - Encounter for screening for infections with a predominantly sexual mode of transmission (2) Recurrent HSV (herpes simplex virus): Comment: Usually 1 outbreak a year but recently had two within 3 months, takes Valtrex for 7 days and is extremely careful. Code(s): B00.9 - Herpesviral infection, unspecified Plan Reviewed her careful safer sex practices encouraged her to be sure that her partner's leave the condom on the entire time she would like testing for STIs through blood work so I am ordering those for her. She would like to be treated for BV I agreed that I would send a prescription for her for metronidazole pills which is her treatment of choice but I am asking her to hold off on starting them until she sees the results of the testing tomorrow her discharge appears completely within normal limits so she may not need treatment at all but it is okay for her to have it just as it is okay to have the metronidazole pills for use in an outbreak when they occur. Acknowledged the challenge of exposing oneself to risk of STIs in intimate behavior, this does not make her paranoid. It is a normal concern. Orders: Orders Hepatitis B Surface Antigen Today Z11.3 - Encounter for screening for infections with a predominantly sexual mode of transmission Hepatitis C Antibody Today Z11.3 - Encounter for screening for infections with a predominantly sexual mode of transmission HIV Ab/Ag Today Z11.3 - Encounter for screening for infections with a predominantly sexual mode of transmission Bacterial Vaginosis Panel Today N89.8 - Other specified noninflammatory disorders of vagina CT NG by PCR Today N89.8 - Other specified noninflammatory disorders of vagina Syphilis Screen Today Z11.3 - Encounter for screening for infections with a predominantly sexual mode of transmission Medications: Changed From metronidazole 500 mg PO BID 7 days 14 tabs 0RF To metronidazole Take when there is clear evidence of bacterial vaginosis. 500 mg PO BID 7 days 14 tabs 0RF Coding Level of Care Code Est Pt Level 3 (18287) Diagnoses Encounter for screening examination for sexually transmitted disease Z11.3 Recurrent HSV (herpes simplex virus) B00.9
== END 2023-06-17 15:54 | disposition home or self-care (01) ==
LOC: HO.HWSM 14:59
PROVIDERS: PCP Nurse Practitioner Primary Care; Visit Provider Advanced Practice Midwife
DX: Z11.3 Encounter for screening for infections with a predominantly sexual mode of transmission (principal); B00.9 Herpesviral infection, unspecified
CPT/HCPCS: 99213

== ENCOUNTER 2023-06-17 14:59 | Outpatient (REF) | payer MEDICAID, SELFPAY ==
[2023-06-18 06:58] LABS: CT PCR NOT DETECTED (Not Detect.); NG PCR NOT DETECTED (Not Detect.)
[2023-06-18 09:54] LABS: BV Int Neg Control Negative (Negative); BV Int Pos Control Positive (Positive)
== END 2023-06-17 15:00 | disposition home or self-care (01) ==
LOC: HO.LNP 14:59
PROVIDERS: PCP Nurse Practitioner Primary Care; Visit Provider Advanced Practice Midwife
DX: Z11.3 Encounter for screening for infections with a predominantly sexual mode of transmission (principal); N89.8 Other specified noninflammatory disorders of vagina
CPT/HCPCS: 0353U; 87480; 87510; 87660; 99212

== ENCOUNTER 2023-10-07 09:35 | Outpatient (AMB) | payer MEDICAID, SELFPAY ==
--- NOTE | 2023-10-07 09:41 | MHC.OFFVIS ---
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 Present Allergies shellfish derived [SHELLFISH DERIVED] Allergy (Severe, Verified 10/07/23 09:44) SWELLING cat dander [CATS] Allergy (Unknown, Verified 10/07/23 09:44) UNKNOWN crab Allergy (Unknown, Verified 10/07/23 09:44) UNKNOWN DUST Allergy (Unknown, Uncoded 06/17/23 15:06) RASH PEANUT BUTTER Allergy (Unknown, Uncoded 06/17/23 15:06) UNKNOWN Peanut Butter Flavor Allergy (Unknown, Uncoded 06/17/23 15:06) Swelling peanuts Allergy (Unknown, Uncoded 06/17/23 15:06) swollen pollen Allergy (Unknown, Uncoded 06/17/23 15:06) rash shellfish Allergy (Unknown, Uncoded 06/17/23 15:06) Swelling nail polsh remover Adverse Reaction (Intermediate, Uncoded 06/17/23 15:06) Rash Is last menstrual period known: Yes Last menstrual period: 09/14/23 HPI Comments Details: Presenting for annual exam. No complaints. Last Pap was negative in 08/19 [facility] Medical History Depression Surgical History [place] teeth removed Social History Patient Tobacco Use Status: Never used Tobacco Female Reproductive History Menstrual Age of Menarche: 10 Duration of menses: 6-7 days Date of last menstrual period: 09/14/23 control method: none and condoms Date of last pap smear: 08/03/20 (neg) Review of Systems Const All systems reviewed & are unremarkable except as noted in HPI and below Card Reports as per HPI Resp Reports as per HPI GI Reports as per HPI and Reports no additional complaints Reports as per HPI Physical Exam Vital Signs: Last Vital Signs BP 110/70 10/07/23 09:43 BMI result Body Mass Index 43.2 Const General: cooperative, healthy appearing and comfortable Chest Chest palpation & inspection: normal inspection of the chest and normal palpation of entire chest wall Breast/axilla inspection: normal inspection of the breasts and normal inspection of the axillae Breast/axilla palpation: normal palpation of the breasts, normal palpation of the axillae and no axillary lymphadenopathy Resp Effort & Inspection: normal respiratory effort Auscultation: clear to auscultation bilaterally Percussion: percussion normal Cardio Palpation: normal PMI Rate: regular rate Rhythm: regular rhythm Heart sounds: no murmurs and no rubs Peripheral pulses: Peripheral pulses 2+ throughout GI Inspection: Yes normal to inspection Palpation (GI): Soft to palpation, nontender, no guarding, not rigid and No hepatosplenomegaly present Percussion: Yes normal to percussion Auscultation: normal bowel sounds Rectal Exam - Female: deferred General: Yes bladder normal to palpation External Female Exam: No lesion Speculum Exam - Vagina: normal appearance of the vagina, normal palpation, normal vaginal discharge and not erythematous Speculum Exam - Cervix: normal appearance of the cervix and normal palpation Bimanual exam- vagina & uterus: normal bimanual exam, normal palpation, uterine size normal, bladder normal to palpation, consistency normal and normal palpation Bimanual Exam- Adnexa, other: normal adnexae, no masses and no tenderness Assessment & Plan Assessment & Plan (1) Well woman exam: Code(s): Z01.419 - Encounter for gynecological examination (general) (routine) without abnormal findings Category: Medical Plan: Pap smear taken. Counseled the patient about the recommended dietary allowance of 1000 mg of Calcium & 600 IU of vitamin D. The patient was instructed to perform monthly self-breast exams and to schedule an annual exam in a year; All questions answered and the patient verbalized understanding. Instructed the patient to schedule annual exam in a year Coding Level of Care Code Est Pt Prev Care 18-39y(47659) Diagnoses Well woman exam Z01.419
[2023-10-07 09:43] VITALS: BP 110/70; BMI 43.2
== END 2023-10-07 11:30 | disposition home or self-care (01) ==
PROVIDERS: PCP Nurse Practitioner Primary Care; Referring Provider Nurse Practitioner Primary Care; Visit Provider Obstetrics & Gynecology
DX: Z01.419 Encounter for gynecological examination (general) (routine) without abnormal findings (principal)
CPT/HCPCS: 99395

== ENCOUNTER 2023-10-07 09:35 | Outpatient (REF) | payer MEDICAID, SELFPAY | END 2023-10-07 09:36 | disposition home or self-care (01) | LOC: HO.LNP 09:35 | PROVIDERS: Visit Provider Obstetrics & Gynecology | DX: Z01.419 Encounter for gynecological examination (general) (routine) without abnormal findings (principal) | CPT/HCPCS: 88142; 99395 ==

== ENCOUNTER 2023-12-29 13:55 | Outpatient (REF) | payer MEDICAID, SELFPAY ==
[2023-12-29 16:51] LABS: MANUAL DIFF FLAG NO
[2023-12-29 17:02] LABS: Creatinine Urine 311.88 mg/dL; Microalbum/Creatinine Ratio Ur 5.1 ug/mg cr (<30)
[2023-12-29 17:03] LABS: Basophils Absolute Auto 0.1 X10*3/uL (0.0-0.2); Basophils Percent Auto 0.8 % (0-2); Eosinophils Percent Auto 0.6 % (0-4); Hematocrit 35.4 % (37.0-47.0); Hemoglobin 11.1 g/dl (12.0-16.0); Imm Gran Abs Auto 0.02 X10*3/uL (0.00-0.03); Imm Gran Pct Auto 0.3 % (0.0-0.4); Lymphocytes Absolute Auto 1.6 X10*3/uL (1.2-4.9); Lymphocytes Percent Auto 23.9 % (20-40); Mean Corpuscular HGB Conc 31.4 g/dl (31.0-35.0); Mean Corpuscular Hemoglobin 26.1 pg (27.0-33.0); Mean Corpuscular Volume 83.1 fL (80.0-98.0); Monocytes Absolute Auto 0.5 X10*3/uL (0.1-1.2); Monocytes Percent Auto 7.3 % (2-11); Neutrophils Absolute Auto 4.4 x10*3/uL (2.0-8.3); Neutrophils Percent Auto 67.1 % (45-73); Platelet Count 475 X10*3/uL (160-400); Red Blood Count 4.26 X10*6/uL (4.20-5.50); Red Cell Distribution Width 14.4 % (11.0-16.0); White Blood Count 6.5 X10*3/uL (4.8-10.8)
[2023-12-29 17:10] LABS: Estimated Average Glucose 114 mg/dL; Hemoglobin A1c % 5.6 % (<6.0)
[2023-12-29 17:16] LABS: Anion Gap 13 (12-20); Blood Urea Nitrogen 6 mg/dL (9-16); Calcium 9.8 mg/dL (8.4-10.2); Carbon Dioxide 24 mmol/L (22-29); Chloride 105 mmol/L (96-108); Cholesterol 221 mg/dL (<200); Estimated Glomerular Filt Rate > 60; Glucose Random 92 mg/dL (60-115); HDL Cholesterol 50 mg/dL (>40); LDL Cholesterol Calculated 135 mg/dL (<100); Potassium 3.7 mmol/L (3.3-5.1); Sodium 138 mmol/L (135-145); Triglycerides 182 mg/dL (<150)
== END 2023-12-29 13:56 | disposition home or self-care (01) ==
LOC: HO.HHCL 13:55
PROVIDERS: Visit Provider Nurse Practitioner Primary Care
DX: I10 Essential (primary) hypertension (principal); R53.83 Other fatigue; Z68.41 Body mass index [BMI] 40.0-44.9, adult; E66.01 Morbid (severe) obesity due to excess calories
CPT/HCPCS: 36415; 80048; 80061; 82043; 82570; 83036; 85025

== ENCOUNTER 2024-01-11 19:22 | Outpatient (REF) | payer MEDICAID, SELFPAY ==
--- NOTE | ~2024-01-11 | MR_ITS ---
EXAMINATION: MR LUMBAR SPINE WITHOUT CONTRAST CLINICAL INFORMATION: Chronic lower back pain with right-sided sciatica COMPARISON: None TECHNIQUE: MRI of the lumbar spine was obtained using routine sequences without contrast. FINDINGS: Normal anatomic alignment. No suspicious marrow signal or focal osseous lesion. No significant marrow edema. Small T12 vertebral body hemangioma. The vertebral body heights are maintained. The intervertebral discs are of normal height and signal. The conus medullaris terminates at the level of L1. The distal spinal cord is normal in appearance. The cauda equina nerve roots appear normal. No significant abnormalities of the paraspinal musculature. Limited evaluation of the intra-abdominal structures without significant abnormalities. The abdominal aorta is of normal contour and caliber. SPINAL LEVELS: L1-L2: No significant spinal canal or neuroforaminal narrowing. L2-L3: No significant spinal canal or neuroforaminal narrowing. . L3-L4: No significant spinal canal or neuroforaminal narrowing. Mild facet arthropathy. L4-L5: No significant spinal canal or neuroforaminal narrowing. Mild facet arthropathy. L5-S1: No significant spinal canal or neural foraminal narrowing. Suggestion of bilateral L5 pars defects. Mild facet arthropathy. MR/MR lumbar spine wo con IMPRESSION: 1. Suggestion of bilateral L5 pars defects without significant spondylolisthesis. 2. Mild lower lumbar facet arthropathy. Electronically signed by: Moody Quiñones MD 02/03/2024 04:11 PM EDT
== END 2024-01-11 19:23 | disposition home or self-care (01) ==
LOC: HO.MRI 19:22
PROVIDERS: PCP Nurse Practitioner Primary Care; Visit Provider Student in an Organized Health Care Education/Training Program
DX: M54.41 Lumbago with sciatica, right side (principal); G89.29 Other chronic pain
CPT/HCPCS: 72148

== ENCOUNTER 2024-02-18 11:28 | Outpatient (REF) | payer MEDICAID, SELFPAY ==
[2024-02-18 13:42] LABS: Hematocrit 34.6 % (37.0-47.0); Hemoglobin 10.8 g/dl (12.0-16.0)
[2024-02-18 14:07] LABS: Iron 24 mcg/dL (30-160); Percent Iron Saturation 7 % (15-50); Total Iron Binding Capacity 361 mcg/dL (228-428); Unsaturated Iron Binding 337 ug/dL
[2024-02-18 14:20] LABS: Vitamin B12 326 pg/mL (200-900)
[2024-02-19 08:20] LABS: HIV AB/AG Nonreactive (Nonreactive); HIV Num 1 0.04 S/CO (0.00-0.99)
== END 2024-02-18 11:29 | disposition home or self-care (01) ==
LOC: HO.HHCL 11:28
PROVIDERS: Visit Provider Nurse Practitioner Primary Care
DX: Z11.3 Encounter for screening for infections with a predominantly sexual mode of transmission (principal); R20.2 Paresthesia of skin; R20.0 Anesthesia of skin; D64.9 Anemia, unspecified
CPT/HCPCS: 36415; 82607; 83540; 85014; 85018; 87389

== ENCOUNTER 2024-02-19 10:51 | Outpatient (REF) | payer MEDICAID, SELFPAY ==
--- NOTE | ~2024-02-19 | XR_ITS ---
EXAMINATION: XR LUMBOSACRAL SPINE CLINICAL INFORMATION: M43.06 - Spondylolysis, lumbar region COMPARISON: None. Correlation made MR lumbar 01/11/2024. TECHNIQUE: Five views of the lumbosacral spine. FINDINGS: There is normal bony mineralization. There is no acute fracture, dislocation, or suspicious bone lesion. No compression deformities. There is a normal lordosis without significant scoliosis. There are bilateral L5 pars defects present with a 2 to 3 mm anterolisthesis (grade 1). Alignment is otherwise normal without subluxation. Mild facet arthropathy present at 3 through S1. SI joints and sacrum appear normal. No soft tissue abnormalities. XR/XR lumbar spine 4V min IMPRESSION: 1. No acute bony abnormalities lumbar spine. 2. Grade 1 spondylolisthesis L5-S1. Electronically signed by: Jam Carpio MD 05/01/2024 10:03 PM [facility]
== END 2024-02-19 10:52 | disposition home or self-care (01) ==
LOC: HO.XRAY 10:51
PROVIDERS: PCP Nurse Practitioner Primary Care; Visit Provider Nurse Practitioner Family
DX: M43.06 Spondylolysis, lumbar region (principal); M47.816 Spondylosis without myelopathy or radiculopathy, lumbar region; M54.50 Low back pain, unspecified; E66.01 Morbid (severe) obesity due to excess calories; Z68.41 Body mass index [BMI] 40.0-44.9, adult; M62.838 Other muscle spasm
CPT/HCPCS: 72110; 99212

== ENCOUNTER 2024-02-19 10:51 | Outpatient (AMB) | payer MEDICAID, SELFPAY ==
--- NOTE | 2024-02-19 10:52 | A.OFFVIS_ITS ---
Vital Signs 02/19/24 11:06 Height 5 ft Weight 213 lb 2 oz BMI 41.6 BP 119/59 L Blood Pressure Location Rt brachial Position Sitting Pulse 86 Pulse Source Pulse Oximeter Intake Visit Reasons: Lumbar Radiculopathy Intake Note: Pain today 7/10 Precision Jig Grinder Required: No Allergies shellfish derived [SHELLFISH DERIVED] Allergy (Severe, Verified 02/19/24 11:06) SWELLING cat dander [CATS] Allergy (Unknown, Verified 02/19/24 11:06) UNKNOWN crab Allergy (Unknown, Verified 02/19/24 11:06) UNKNOWN DUST Allergy (Unknown, Uncoded 06/17/23 15:06) RASH PEANUT BUTTER Allergy (Unknown, Uncoded 06/17/23 15:06) UNKNOWN Peanut Butter Flavor Allergy (Unknown, Uncoded 06/17/23 15:06) Swelling peanuts Allergy (Unknown, Uncoded 06/17/23 15:06) swollen pollen Allergy (Unknown, Uncoded 06/17/23 15:06) rash shellfish Allergy (Unknown, Uncoded 06/17/23 15:06) Swelling nail polsh remover Adverse Reaction (Intermediate, Uncoded 06/17/23 15:06) Rash Patient : No HPI HPI Lumbar Radiculopathy: Details: Patient is a 28-year-old female this history of depression and anxiety, morbid obesity and chronic low back pain presents today for initial evaluation of lower back pain. Denies any recent trauma, injury, or falls. Reports back pain has been chronic since age 13-14 years old when she fell over buttock. Back pain is axial and easily reproduced with lateral rotations and movements and also with flexing forward, indicating discogenic source. Patient reports sometimes back pain radiates to the right lower extremity. Pain is constant and is most severe in the mornings, evenings in the middle of the night. Patient reports pain affects her daily activities and functioning, mobility, sleep, mood, and social interactions as well as caring for her 6-year-old child. Denies previous spine surgery or injections. She completed lumbar spine MRI noted for suggestion of bilateral L5 pars defects without significant spondylolisthesis and mild lower lumbar facet arthropaty. Pain is rated 7/10. She tried Tylenol, NSAIDs, and lidoderm patch without any pain relief. Patient completed physical therapy about 9 years ago without significant improvement. She currently sees counseling for PTSD, depression and anxiety. Denies any fever or chills, weight loss, abdominal pain or groin, weakness, bladder or bowel dysfunction or saddle anesthesia. Oswestry low back disability score=34 (severe stability) Location: Lower back radiates down bilateral legs, mostly RLE Duration: Chronic pain, since age 13-14 years old Characteristics of symptom or complaint: Aching, sharp, tingling, cramping, dull, tiring, throbbing, stabbing Aggravating or associated factors: sitting, standing for long periods of time, ADLs, chores, mopping Relieving factors: Heat, rest, Tylenol, NSAIDs, lidoderm patch Treatment: PT 9 years ago [facility] Medical History (Updated 02/20/24 @ 22:12 by LORETTA Sibley) Lumbar radiculopathy Dental caries Fracture of dental oriental orthodox Periodontal disease Obstructive sleep apnea syndrome History of fracture of nasal bone Carpal tunnel syndrome Tension type headache Obesity Thyromegaly Low back pain Asthma Depression Surgical History [place] teeth removed Social History Patient Tobacco Use Status: Never used Tobacco Female Reproductive History Menstrual Age of Menarche: 10 Date of last menstrual period: 01/31/24 control method: pills Review of Systems Const All systems reviewed & are unremarkable except as noted in HPI and below Physical Exam Vital Signs: Last Vital Signs Pulse 86 02/19/24 11:06 BP 119/59 L 02/19/24 11:06 BMI result Body Mass Index 41.6 General: Appears afebrile. Alert and oriented. Mood and affect appropriate. Follows and participates in conversation appropriately. Respiratory effort is unlabored. No cough. Able to transition from sit to stand unassisted. Ambulates with bilaterally normal heel strike and toe off. General: Yes no CVA tenderness Back/Spine/Pelvis Other: Patient is able to walk and stand on heels and tip toes with no difficulties demonstrating good motor tone. No limping. Can flex forward to 65-70 degrees and extend to 5-10 degrees before experiencing lumbar pain. Demonstrates 5/5 strength of quadriceps bilaterally as well as flexion/dorsiflexion of bilateral feet against resistance. 2+ pedal pulses bilaterally. Seated straight leg rise with dorsiflexion negative bilaterally. +2 patellar and achilles reflexes bilaterally. Facet loading test positive bilaterally. Bradley sign, Bao?s, Pelvic compression and Stinchfield tests are negative bilaterally. No groin pain with I/E hip rotations. Valsalva maneuver negative. Back: no CVA tenderness Cervical Spine: cervical ROM normal, No cervical muscular tenderness and No Cervical spine tenderness Thoracic/Lumbar Spine: thoracic and lumbar spine normal to inspection, No Thoracic/lumbar spine scar(s), Lasegue's sign negative, straight leg raise negative bilaterally, pain with thoraco-lumbar ROM, paraspinal muscle tenderness, thoraco-lumbar ROM limited, No thoracic spinal tenderness and lumbar spinal tenderness at L4 and at L5 Pelvis: buttock tenderness bilaterally Sacroiliac joints: bilaterally tender to palpation Results Reviewed Results Reviewed: MR LUMBAR SPINE WITHOUT CONTRAST 01/11/24 CLINICAL INFORMATION: Chronic lower back pain with right-sided sciatica FINDINGS: Normal anatomic alignment. No suspicious marrow signal or focal osseous lesion. No significant marrow edema. Small T12 vertebral body hemangioma. The vertebral body heights are maintained. The intervertebral discs are of normal height and signal. The conus medullaris terminates at the level of L1. The distal spinal cord is normal in appearance. The cauda equina nerve roots appear normal. No significant abnormalities of the paraspinal musculature. Limited evaluation of the intra-abdominal structures without significant abnormalities. The abdominal aorta is of normal contour and caliber. SPINAL LEVELS: L1-L2: No significant spinal canal or neuroforaminal narrowing. L2-L3: No significant spinal canal or neuroforaminal narrowing. . L3-L4: No significant spinal canal or neuroforaminal narrowing. Mild facet arthropathy. L4-L5: No significant spinal canal or neuroforaminal narrowing. Mild facet arthropathy. L5-S1: No significant spinal canal or neural foraminal narrowing. Suggestion of bilateral L5 pars defects. Mild facet arthropathy. IMPRESSION: 1. Suggestion of bilateral L5 pars defects without significant spondylolisthesis. 2. Mild lower lumbar facet arthropathy. Assessment & Plan Assessment & Plan (1) Lumbar pars defect: Code(s): M43.06 - Spondylolysis, lumbar region Category: Medical (2) Lumbar spondylosis: Code(s): M47.816 - Spondylosis without myelopathy or radiculopathy, lumbar region Category: Medical (3) Low back pain: Code(s): M54.50 - Low back pain, unspecified Category: Medical (4) Morbid obesity with BMI of 40.0-44.9, adult: Code(s): E66.01 - Morbid (severe) obesity due to excess calories; Z68.41 - Body mass index [BMI] 40.0-44.9, adult Category: Medical (5) Muscle spasm: Code(s): M62.838 - Other muscle spasm Category: Medical Plan Lumbar spine imaging to assess degree of degenerative changes, any subluxation, listhesis, compression fractures or pars defects. Discussed interventional treatments to address facetogenic low back pain, including injections, neuromodulation in RFA procedures. Recommend formal physical therapy to reduce pain and optimize mobility, improve strength, proprioception, and neuromuscular coordination. Script provided. Script provided for methocarbamol. Side effects and precautions discussed with patient. Medical Weight Management Referral to address morbid obesity which negatively affects patient's chronic low back pain. Script provided for TENS unit via [employer]. Informational pamphlets provided. Patient is aware [employer] will ship TENS unit device directly to her home. All questions and concerns have been answered and patient agreed with the treatment plan. Follow-up after PT and sooner as needed. Orders: Orders XR lumbar spine 4V min 02/18/ M43.06 - Spondylolysis, lumbar region, M47.816 - Spondylosis without myelopathy or radiculopathy, lumbar region Referrals Medical Weight Management Referral E66.01 - Morbid (severe) obesity due to excess calories, M54.50 - Low back pain, unspecified, Z68.41 - Body mass index [BMI] 40.0-44.9, adult Medications: New methocarbamol 500 mg PO TID 90 tabs 0RF muscle spasms 30 days M47.816 - Spondylosis without myelopathy or radiculopathy, lumbar region, M54.50 - Low back pain, unspecified, M62.838 - Other muscle spasm Coding Level of Care Code New Pt Level 4 (59702) Complex EM visit Add On G2211 Diagnoses Lumbar pars defect M43.06 Lumbar spondylosis M47.816 Low back pain M54.50 Morbid obesity with BMI of 40.0-44.9, adult E66.01; Z68.41 Muscle spasm M62.418
[2024-02-19 11:06] VITALS: BP 119/59; PULSE 86; BMI 41.6
== END 2024-02-19 11:39 | disposition home or self-care (01) ==
PROVIDERS: PCP Nurse Practitioner Primary Care; Visit Provider Nurse Practitioner Family
DX: M43.06 Spondylolysis, lumbar region (principal); M47.816 Spondylosis without myelopathy or radiculopathy, lumbar region; M54.50 Low back pain, unspecified; E66.01 Morbid (severe) obesity due to excess calories; Z68.41 Body mass index [BMI] 40.0-44.9, adult; M62.838 Other muscle spasm
CPT/HCPCS: 99204

== ENCOUNTER → 2024-02-19 11:53 | Outpatient (BNV) | payer MEDICAID, SELFPAY | PROVIDERS: PCP Nurse Practitioner Primary Care; Visit Provider Radiology Diagnostic Radiology | DX: M43.06 Spondylolysis, lumbar region (principal) | CPT/HCPCS: 72110 ==

== ENCOUNTER 2024-03-15 08:30 | Outpatient (REF) | payer MEDICAID, SELFPAY ==
[2024-03-16 11:29] LABS: CT PCR NOT DETECTED (Not Detect.); NG PCR NOT DETECTED (Not Detect.)
== END 2024-03-15 08:31 | disposition home or self-care (01) ==
LOC: HO.LNP 08:30
PROVIDERS: PCP Nurse Practitioner Primary Care; Visit Provider Obstetrics & Gynecology
DX: B37.2 Candidiasis of skin and nail (principal); R10.2 Pelvic and perineal pain
CPT/HCPCS: 81002; 81025; 87491; 87591; 99212

== ENCOUNTER 2024-03-15 08:30 | Outpatient (AMB) | payer MEDICAID, SELFPAY ==
[2024-03-15 08:31] VITALS: BP 110/70; BMI 41.3
--- NOTE | 2024-03-15 08:31 | MHC.OFFVIS ---
Vital Signs 03/15/24 08:31 Height 5 ft Weight 211 lb 10.3 oz BMI 41.3 BP 110/70 Intake Visit Reasons: red patch on L breast Quality Control Head Required: No Information Interpreted: non-clinical & clinical Environmental Resource Specialist: Environmental Resource Specialist Present (Tea Crawford TONE) Accompanied by: Self / Same As Patient Allergies shellfish derived [SHELLFISH DERIVED] Allergy (Severe, Verified 03/15/24 08:35) SWELLING cat dander [CATS] Allergy (Unknown, Verified 03/15/24 08:35) UNKNOWN crab Allergy (Unknown, Verified 03/15/24 08:35) UNKNOWN DUST Allergy (Unknown, Uncoded 03/15/24 08:35) RASH PEANUT BUTTER Allergy (Unknown, Uncoded 03/15/24 08:35) UNKNOWN Peanut Butter Flavor Allergy (Unknown, Uncoded 03/15/24 08:35) Swelling peanuts Allergy (Unknown, Uncoded 03/15/24 08:35) swollen pollen Allergy (Unknown, Uncoded 03/15/24 08:35) rash shellfish Allergy (Unknown, Uncoded 03/15/24 08:35) Swelling nail polsh remover Adverse Reaction (Intermediate, Uncoded 03/15/24 08:35) Rash Is last menstrual period known: Yes Last menstrual period: 03/01/24 HPI Comments Details: Presenting complaining of a right patch under left breast associated with irritation and itching. In addition, the patient is complaining of bilateral lower pelvic pain started 1-2 weeks ago. It's intermittent in nature . it is not associated with constipation, no dysuria, frequency incontinence, no n/v, no feverishness, no vaginal discharge or nausea or vomiting. FORMERLY [facility] Medical History Lumbar radiculopathy Dental caries Fracture of dental episcopalian Periodontal disease Obstructive sleep apnea syndrome History of fracture of nasal bone Carpal tunnel syndrome Tension type headache Obesity Thyromegaly Low back pain Asthma Depression Surgical History [place] teeth removed Social History Patient Tobacco Use Status: Never used Tobacco Female Reproductive History Menstrual Age of Menarche: 10 Date of last menstrual period: 03/01/24 Review of Systems Const All systems reviewed & are unremarkable except as noted in HPI and below Physical Exam Vital Signs: Last Vital Signs BP 110/70 03/15/24 08:31 BMI result Body Mass Index 41.3 General: Yes no CVA tenderness External Female Exam: normal external appearance and normal appearance of the urethra Speculum Exam - Vagina: normal appearance of the vagina, normal palpation, no lesions and no masses Speculum Exam - Cervix: normal appearance of the cervix, normal palpation, no lesions, no masses and nontender Bimanual exam- vagina & uterus: normal bimanual exam, normal palpation, uterine size normal, normal palpation, uterine shape normal, No Cervical tenderness present and non-tender Bimanual Exam- Adnexa, other: normal adnexae Back/Spine/Pelvis Back: no CVA tenderness Skin Other: Left skin under the breasts red patch consistent with skin candidiasis Results AMB Test Urine AMB Test Urine Negative Last Edit by Tea Crawford CMA on 03/15/24 08:57 AMB Urinalysis Dipstick UR Leukocytes Negative Last Edit by Tea Crawford CMA on 03/15/24 08:58 UR Nitrite Negative Last Edit by Tea Crawford CMA on 03/15/24 08:58 UR Urobilinogen Normal Last Edit by Tea Crawford CMA on 03/15/24 08:58 UR Protein Trace Last Edit by Tea Crawford, JEAN CLAUDE on 03/15/24 08:58 UR Ph 5.5 Last Edit by Tea Crawford CMA on 03/15/24 08:58 UR Blood Negative Last Edit by Tea Crawford CMA on 03/15/24 08:58 UR Specific [place] 1.030 Last Edit by Tea Crawford CMA on 03/15/24 08:58 UR Ketone Negative Last Edit by Tea Crawford CMA on 03/15/24 08:58 UR Bilirubin Negative Last Edit by Tea Crawford CMA on 03/15/24 08:58 UR Glucose Negative Last Edit by Tea Crawford CMA on 03/15/24 08:58 Assessment & Plan Assessment & Plan (1) Skin candidiasis: Code(s): B37.2 - Candidiasis of skin and nail Category: Medical Plan: The patient was instructed to keep the area dry, use hair blower after showering, use baby powder without Talc and Desitin cream in addition to applying lotrisone cream BID x5 days (2) Pelvic pain: Code(s): R10.2 - Pelvic and perineal pain Category: Medical Plan: Urine dip and test done in the office were both negative. GC and chlamydia taken and pelvic ultrasound ordered. Discussed with the patient the differential diagnosis of pelvic pain including but not limited to adnexal, uterine masses, pelvic infections (PID), GI the (Irritable bowel syndrome, diverticulitis, others), musculoskeletal, myofascial pain abdominal wall , adhesions, endometriosis, psychological and others causes. Will check results and treat accordingly. All questions answered, the patient verbalized understanding. Instructed the patient to schedule follow-up appointment in 2 weeks Orders: Orders US pelvic and transvaginal Today R10.2 - Pelvic and perineal pain AMB Urinalysis Dipstick Today Z32.02 - Encounter for test, result negative AMB HCG Urine Test Today Z32.02 - Encounter for test, result negative Medications: New clotrimazole-betamethasone 1-0.05 % 1 appl topical BID 5 days 45 grams 0RF Coding Level of Care Code Est Pt Level 3 (08309) Diagnoses Skin candidiasis B37.2 Pelvic pain R10.2
== END 2024-03-15 09:01 | disposition home or self-care (01) ==
LOC: HO.HWS 08:30
PROVIDERS: PCP Nurse Practitioner Primary Care; Referring Provider Nurse Practitioner Primary Care; Visit Provider Obstetrics & Gynecology
DX: B37.2 Candidiasis of skin and nail (principal); R10.2 Pelvic and perineal pain; Z32.02 Encounter for pregnancy test, result negative
CPT/HCPCS: 99213

== ENCOUNTER 2024-03-18 10:46 | Outpatient (REF) | payer MEDICAID, SELFPAY ==
--- NOTE | ~2024-03-18 | US_ITS ---
EXAMINATION: US PELVIS CLINICAL INFORMATION: Pelvic and perineal pain COMPARISON: None available. TECHNIQUE: Ultrasound of the pelvis is performed using both transabdominal and transvaginal transducers along with Doppler. Transvaginal imaging is performed due to inadequate visualization transabdominally. FINDINGS: Uterus: The uterus is anteverted and measures 8.9 x 5.2 x 4.8 cm. The double wall endometrial thickness is 15 mm. The uterus is smooth in contour and has normal myometrial echogenicity. No visible fibroid. Adnexa: Both ovaries are visualized. There is normal color flow to the adnexa. There is no ovarian torsion. There is no pelvic ascites or fluid collection. Right ovary measures 2.5 x 1.7 x 1.6 cm. Left ovary measures 4.1 x 2.0 x 3.0 cm. There is a benign simple 3.0 x 1.5 x 1.6 cm cyst in the left ovary. US/US pelvic and transvaginal IMPRESSION: Unremarkable pelvic ultrasound. Benign left ovarian cyst needs no follow-up Electronically signed by: Alex Thompson MD 05/15/2024 10:38 PM ESTEFANY
== END 2024-03-18 10:47 | disposition home or self-care (01) ==
LOC: HO.US 10:46
PROVIDERS: PCP Nurse Practitioner Primary Care; Visit Provider Obstetrics & Gynecology
DX: R10.2 Pelvic and perineal pain (principal)
CPT/HCPCS: 76830; 76856

== ENCOUNTER 2024-03-30 10:31 | Outpatient (AMB) | payer MEDICAID, SELFPAY ==
[2024-03-30 10:34] VITALS: BP 128/62; BMI 41.2
--- NOTE | 2024-03-30 10:34 | A.OFFVIS_ITS ---
Vital Signs 03/30/24 10:34 Height 5 ft Weight 211 lb BMI 41.2 BP 128/62 Blood Pressure Location Lt brachial Position Sitting Intake Visit Reasons: Ultrasound follow up Allergies shellfish derived [SHELLFISH DERIVED] Allergy (Severe, Verified 03/30/24 10:37) SWELLING cat dander [CATS] Allergy (Unknown, Verified 03/30/24 10:37) UNKNOWN crab Allergy (Unknown, Verified 03/30/24 10:37) UNKNOWN DUST Allergy (Unknown, Uncoded 03/30/24 10:37) RASH PEANUT BUTTER Allergy (Unknown, Uncoded 03/30/24 10:37) UNKNOWN Peanut Butter Flavor Allergy (Unknown, Uncoded 03/30/24 10:37) Swelling peanuts Allergy (Unknown, Uncoded 03/30/24 10:37) swollen pollen Allergy (Unknown, Uncoded 03/30/24 10:37) rash shellfish Allergy (Unknown, Uncoded 03/30/24 10:37) Swelling nail polsh remover Adverse Reaction (Intermediate, Uncoded 03/30/24 10:37) Rash HPI Comments Details: Presenting for follow-up regarding her pelvic pain. The patient is doing well. The following workup was done so far: GC/CT negative. Last visit urine test was negative. Last visit urine dip was negative. Pelvic ultrasound no report available yet, unofficial reading showed 8.9 cm anteverted uterus 1.5 cm endometrial thickness , left simple ovarian cyst dayne suring 3 cm otherwise unremarkable [facility] Medical History Lumbar radiculopathy Dental caries Fracture of dental hinduism Periodontal disease Obstructive sleep apnea syndrome History of fracture of nasal bone Carpal tunnel syndrome Tension type headache Obesity Thyromegaly Low back pain Asthma Depression Surgical History [place] teeth removed Social History Patient Tobacco Use Status: Never used Tobacco Female Reproductive History Menstrual Age of Menarche: 10 Review of Systems Const All systems reviewed & are unremarkable except as noted in HPI and below Reports as per HPI and Reports no additional complaints GI Reports no additional complaints Reports no additional complaints Physical Exam Vital Signs: Last Vital Signs BP 128/62 03/30/24 10:34 BMI result Body Mass Index 41.2 Assessment & Plan Assessment & Plan (1) Pelvic pain: Code(s): R10.2 - Pelvic and perineal pain Category: Medical Plan: Discussed with the patient the results of the workup done including negative GC/chlamydia, urine dip, urine test and pelvic ultrasound showing 3 cm left simple ovarian cyst. Differential diagnosis of fiberglass dowel drawing operator causes that have not be ruled out yet include but not limited to endometriosis, pelvic adhesions , or other. Recommended for the patient to see her PCP for further workup for non fiberglass dowel drawing operator causes; if the all the results are negative and the patient's pelvic pain is persistent, instructions given to patient to call back for further testing. Meanwhile, we will start the patient on continuous control pills for possible endometriosis and contraception. instructions were given the patient to go to emergency room or call in case of fever above 100.4, heavy vaginal bleeding, persistence or worsening of her pelvic pain. A more detailed discussion re: control pills including mechanism of action, benefits (regular menses, less dysmenorrhea, less risk of ovarian cancer, ...), risks ( DVT, PE, Strokes, GA, increased breast ca, others). Instructions were given to use a back- up method for contraception x 1st 2 weeks, and to schedule a 3 months appointment for blood pressure check. All questions answered, the patient verbalized understanding Medications: New L norgest/e.estradiol-e.estrad 0.15 mg-30 mcg (84)/10 mcg (7) 1 tab PO DAILY 84 days 84 ea 0RF Coding Level of Care Code Est Pt Level 3 (08397) Diagnoses Pelvic pain R10.2
== END 2024-03-30 10:52 | disposition home or self-care (01) ==
LOC: HO.HWS 10:31
PROVIDERS: PCP Nurse Practitioner Primary Care; Visit Provider Obstetrics & Gynecology
DX: R10.2 Pelvic and perineal pain (principal)
CPT/HCPCS: 99213

== ENCOUNTER → 2024-03-30 10:31 | Outpatient (BNVA) | payer MEDICAID, SELFPAY | PROVIDERS: PCP Nurse Practitioner Primary Care; Visit Provider Obstetrics & Gynecology | DX: R10.2 Pelvic and perineal pain (principal) | CPT/HCPCS: 99212 ==

== ENCOUNTER 2024-04-26 09:38 | Emergency (ER) | payer SELFPAY ==
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
[2024-04-26 10:00] VITALS: BP 126/75; PULSE 87; RESP 20; TEMP 37; O2SAT 96; BMI 35.7
--- NOTE | 2024-04-26 10:07 | PC.NURSE ---
Pt collared in triage.
[2024-04-26] MEDS: Ondansetron ODT 4 MG TAB.RAPDIS TRANSLINGU (11:02)
[2024-04-26] MEDS: Lidocaine 4 % Patch ADH..PATCH 1 PATCH TRANSDERMA (11:03)
[2024-04-26] MEDS: Acetaminophen 325 MG TABLET 975 MG PO (11:04)
[2024-04-26 11:10] LABS: HCG Quantitative < 2 mIU/mL
[2024-04-26 15:30] VITALS: BP 119/53; PULSE 64; RESP 16; TEMP 36.6; O2SAT 99
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
[2024-04-26 16:11] VITALS: BP 119/53; PULSE 64; RESP 16; TEMP 36.6; O2SAT 99
== END 2024-04-26 16:12 | disposition home or self-care (01) ==
PROVIDERS: Physician Assistant Medical; Emergency Provider Emergency Medicine; PCP Nurse Practitioner Primary Care
DX: S13.4XXA Sprain of ligaments of cervical spine, initial encounter (principal); S39.012A Strain of muscle, fascia and tendon of lower back, initial encounter; M54.2 Cervicalgia; R51.9 Headache, unspecified; M25.561 Pain in right knee; R10.2 Pelvic and perineal pain; V43.52XA Car driver injured in collision with other type car in traffic accident, initial encounter; Y93.89 Activity, other specified; Y92.488 Other paved roadways as the place of occurrence of the external cause; Y99.8 Other external cause status
CPT/HCPCS: 36415; 70450; 72100; 72125; 73564; 84702; 99283; 99284

== ENCOUNTER 2024-06-28 12:15 | Outpatient (REF) | payer MEDICAID, SELFPAY ==
--- OUTSIDE RECORDS SUMMARY | 2024-06-28 13:09 | XMS_ITS | Encounter Summary ---
Author Organization [employer] Address [address] [facility] [place] [address] Care Team Providers Care Pearl Glue Operator Name Role Phone Shirley Taylor Primary Care Provider [phone] Encounter Details Date Type Department Care Team ([facility] st Contact Info) Description 06/27/2024 Orders Only [facility] [address], [place] [phone] Shirley Taylor ANP [address] [place] [address] Iron deficiency anemia, unspecified iron deficiency anemia type (Primary Dx) Social History Tobacco Use Types Packs/Day Years Used Date Smoking Tobacco: Never Passive Smoke Exposure: Never Smokeless Tobacco: Never Alcohol Use Standard Drinks/Week Comments Never 0 (1 standard drink = 0.6 oz pur e alcohol) Depression Answer Date Recorded Patient Health Questionnaire-9 Score 6 11/17/2023 Patient Health Questionnaire-9 Score 6 11/17/2023 Last PHQ-9: Questionnaire Data Not on file 0 11/17/2023 Housing Stability Answer Date Recorded What is your housing situation today? I have nadia mccain 08/11/[address] you li ve. Do you have problems with any of the following? None of the above 08/11/2023 Food Insecurity Answer Date Recorded Within the past 12 months, y ou worried that your food would run out before you got money to buy more: Never True 08/11/2023 Within the past 12 months,th e food you bought just didn't last and you didn't have enough money to get more: Never True 05/2024 Transportation Answer Date Recorded In the past 12 months, has l ack of transportation kept you from medical appts, meetings, work or from getting things needed for daily living? No 08/11/2023 Utilities Answer Date Recorded In the past 12 months, has t he electric, gas, oil or water company threatened to shut off services in your home? No 08/11/2023 Depression Answer Date Recorded Patient Health Questionnaire-2 Score 2 11/17/2023 Comments No Sex and Gender Information Value Date Recorded Sex Assigned at Female 03/31/2022 10:16 AM EDT Legal Sex Female 10:16 AM EDT Gender Identity Female 03/31/2022 10:16 AM EDT Sexual Orientation Straight 03/31/2022 10 :16 AM EDT documented as of this encounter Progress Notes * KINGS Jones - 06/27/2024 11:26 AM EST Fe supplement requested via PrEP navigator. Have sent. Diagnoses and all orders for this visit: Iron deficiency anemia, unspecified iron deficiency anemia type - ferrous sulfate (Fe Tabs) 325 (65 Fe) MG EC tablet; Take 1 tab every other day with vitamin C or OJ. Do not crush, chew, or split. documented in this encounter Plan of Treatment Not on file documented as of this encounter Visit Diagnoses Diagnosis Iron deficiency anemia, unspecified iron deficiency anemia type- Primary documented in this encounter Additional Health Concerns Assessment Noted Time PHQ-9 Depression Total Score: 6 11/17/19 24 9:40 AM EDT documented as of this encounter Care Teams Pearl Glue Operator Relationship Specialty Start Date End Date Shirley Taylor ANP [address] [place] [id number] PCP - General Family Medicine 04/13/20 documented as of this encounter
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
--- OUTSIDE RECORDS SUMMARY | 2024-06-28 13:10 | XMS_ITS | Encounter Summary ---
Author Organization [facility] Address [address] [place] [address] Care Team Providers Care Air Drier Name Role Phone Shirley Taylor Primary Care Provider [phone] Encounter Details Date Type Department Care Team (Latest Contact Info) Description 11/28/2021 Abstract [facility] CONVERSIONS Dental, Provider, DDS Social History Tobacco Use Types Packs/Day Years Used Date Smoking Tobacco: Never Assessed Comments Unknown Sex and Gender Information Value Date Recorded Sex Assigned at Female 03/31/2022 10:16 AM EDT Legal Sex Female 10:16 AM EDT Gender Identity Female 03/31/2022 10:16 AM EDT Sexual Orientation Straight 03/31/2022 10 :16 AM EDT documented as of this encounter Plan of Treatment Not on file documented as of this encounter Visit Diagnoses Not on filedocumented in this encounter Care Teams Air Drier Relationship Specialty Start Date End Date Shirley Taylor ANP [address] [place] [phone] PCP - General Family Medicine 04/13/20 documented as of this encounter
--- OUTSIDE RECORDS SUMMARY | 2024-06-28 13:10 | XMS_ITS | Encounter Summary ---
Author Organization [employer] Address [address] [place] [address] Care Team Providers Care Pantry Steward/Stewardess Name Role Phone Shirley Taylor KINGS Primary Care Provider [phone] Reason for Visit * Reason Comments Med Refill Encounter Details Date Type Department Care Team ([facility] st Contact Info) Description 06/09/2024 Refill [facility] [address] [place] [address] Katie Blackman MD [address] [place] [address] Social History Tobacco Use Types Packs/Day Years [...] Diagnoses Not on filedocumented in this encounter Additional Health Concerns Assessment Noted Time PHQ-9 Depression Total Score: 6 11/17/19 24 9:40 AM EDT documented as of this encounter Care Teams Pantry Steward/Stewardess Relationship Specialty Start Date End Date Shirley Taylor ANP [address] [place] [phone] PCP - General Family Medicine 04/13/20 documented as of this encounter
--- OUTSIDE RECORDS SUMMARY | 2024-06-28 13:10 | XMS_ITS | Clinical Summary ---
Author Organization [facility] Address [address] [place] [address] Phone Care Team Providers Care Polisher Hand Name Role Phone Unavailable Primary Care Provider Unavailabl e Immunizations Name Administration Dates Next Due DTaP 5 09/29/1995,07/01/1994,02/28/1994 ,1993 Hep B, ped/adol 09/29/1995,02/28/1994,1993 Hib (PRP-T) 02/28/1995,07/01/1994,02/28/1994 ,1993 IPV 07/01/1994,02/28/1994,1993 MMR 02/28/1995 Family History Relation Name Status Comments Brother Alive Brother: Alive and well Father Alive Father: Alive a nd well Mother Alive Mother: Alive a nd well Sister 1 Alive Sister: Alive a nd well, Alive and well Sister 2 Alive Sister: Alive a nd well, Alive and well Social History Tobacco Use Types Packs/Day Years Used Date Smoking Tobacco: Never Assessed Comments Unknown Sex and Gender Information Value Date Recorded Sex Assigned at Not on file Legal Sex Female 4:11 PM EDT Gender Identity Not on file Sexual Orientation Not on file Plan of Treatment Health Maintenance Due Date Last Done Comments IPV Vaccines (4 of 4 - 4-dose series) 1997 07/01/1994, 02/28/1994, 1993 DTaP,Tdap,and Td Vaccines (5 - Tdap) 2004 09/29/1995, 07/01/1994, 02/28/1994, Additional history exists Varicella Vaccines (1 of 2 - 13+ 2-dose series) 2006 Influenza Vaccines (#1) 2023 COVID-19 Vaccine ( season) 2024 HIB Vaccines Completed 02/28/1995, 06/03, 02/28/1994, Additional history exists MMR Vaccines Completed 02/28/1995 Hepatitis B Vaccines Completed 09/29/1995, 02/28/1994, 1993 HPV Vaccines Aged Out No longer eligi ble based on patient's age to complete this topic Hepatitis A Vaccines Aged Out No long er eligible based on patient's age to complete this topic Men B Vaccine Aged Out No longer elig ible based on patient's age to complete this topic Meningococcal Vaccine Aged Out No danny josephine eligible based on patient's age to complete this topic Pneumococcal Vaccine Aged Out No long er eligible based on patient's age to complete this topic
--- OUTSIDE RECORDS SUMMARY | 2024-06-28 13:10 | XMS_ITS | Encounter Summary ---
Author Organization [employer] Address [address] [place] [address] Care Team Providers Care School Bus Aide Name Role Phone Shirley Taylor Primary Care Provider [phone] Encounter Details Date Type Department Care Team ([facility] st Contact Info) Description 06/14/2024 Telephone [facility] [address] [place] [address] Shirley Taylor ANP [address] [place] [address] Social History Tobacco Use Types Packs/Day Years [...] your housing situation today? I have nadia cmcain 08/11/[address] you li [...] AM EDT documented as of this encounter Miscellaneous Notes * Telephone Encounter - KINGS Jones - 06/14/2024 9:15 AM EST Please outreach pt to confirm whether she is taking and would like to continue PrEP. If so, please ask her to get HIV testing done. Thanks. documented in this encounter Plan of Treatment Scheduled Orders Name Type Priority Associated Diagnoses Orde r Schedule HIV-1/2 Antigen and Antibodies, Fourth Generation, with Reflexes Lab Routine On pre-exposure prophylaxis for HIV Expected: 06/14/2024 (Approximate), Expires: 06/14/2025 documented as of this encounter Visit Diagnoses Diagnosis On pre-exposure prophylaxis for HIV- Primary documented in this encounter Additional Health Concerns Assessment Noted Time PHQ-9 Depression Total Score: 6 11/17/19 24 9:40 AM EDT documented as of this encounter Care Teams School Bus Aide Relationship Specialty Start Date End Date Shirley Taylor ANP [address] [place] [address] PCP - General Family Medicine 04/13/20 documented as of this encounter
--- OUTSIDE RECORDS SUMMARY | 2024-06-28 13:10 | XMS_ITS | Encounter Summary ---
Author Organization [facility] Address [address] [place] [address] Phone Care Team Providers Care Cripple Chaser Name Role Phone Unavailable Primary Care Provider Unavailabl e Encounter Details Date Type Department Care Team ([facility] st Contact Info) Description 01/15/2017 Conversion Encounter [facility] - [address] [address] Social History Tobacco Use Types Packs/Day Years Used Date Smoking Tobacco: Never Assessed Comments Unknown Sex and Gender Information Value Date Recorded Sex Assigned at Not on file Legal Sex Female 4:11 PM EDT Gender Identity Not on file Sexual Orientation Not on file documented as of this encounter Plan of Treatment Not on file documented as of this encounter Visit Diagnoses Not on filedocumented in this encounter
--- OUTSIDE RECORDS SUMMARY | 2024-06-28 13:10 | XMS_ITS | Clinical Summary ---
Author Organization [facility] Address [address] [place] [address] Care Team Providers Care Signal Engineer Name Role Phone Unavailable Primary Care Provider Unavailabl e Social History Tobacco Use Types Packs/Day Years Used Date Smoking Tobacco: Never Assessed Sex and Gender Information Value Date Recorded Sex Assigned at Not on file Gender Identity Not on file Sexual Orientation Not on file Plan of Treatment Health Maintenance Due Date Last Done Comments DTaP,Tdap,and Td Vaccines (1 - Tdap) 2012 Hepatitis B Vaccines (1 of 3 - 19+ 3-dose series) 2012 Cervical Cancer Screening: P ap Smear 2014 COVID-19 Vaccine ( - 2023-2 5 season) 2024 Influenza Vaccine (#1) 2024 HIB Vaccines Aged Out No longer eligi ble based on patient's age to complete this topic HPV Vaccines Aged Out No longer eligi ble based on patient's age to complete this topic Hepatitis A Vaccines Aged Out No long er eligible based on patient's age to complete this topic IPV Vaccines Aged Out No longer eligi ble based on patient's age to complete this topic MMR Vaccines Aged Out No longer eligi ble based on patient's age to complete this topic Meningococcal ACWY Vaccine Aged Out N o longer eligible based on patient's age to complete this topic Pneumococcal Vaccine: Pediat rics (0 to 5 Years) and At-Risk Patients (6 to 64 Years) Aged Out No longer eligible b ased on patient's age to complete this topic RSV Immunization Patients Un michel 20 months Aged Out No longer eligible b ased on patient's age to complete this topic Varicella Vaccines Aged Out No longer eligible based on patient's age to complete this topic
--- OUTSIDE RECORDS SUMMARY | 2024-06-28 13:10 | XMS_ITS | Encounter Summary ---
Author Organization [employer] Address [address] [place] [address] Care Team Providers Care Kayak Maker Name Role Phone Shirley Taylor Primary Care Provider [phone] Reason for Visit * Reason Comments Med Refill Encounter Details Date Type Department Care Team ([facility] st Contact Info) Description 06/25/2024 Refill [facility] MEDICINE [address] [place] [address] Shirley Taylor ANP [address] [place] [address] Encounter for pre-exposure prophylaxis for HIV Social History Tobacco Use Types Packs/Day Years [...] * Telephone Encounter - KINGS Jones - 06/27/2024 10:04 AM EST Awaiting updated HIV test. LVM for PrEP navigator in case pt has gotten via CRS. documented in this encounter Plan of Treatment Not on file documented as of this encounter Visit Diagnoses Diagnosis Encounter for pre-exposure prophylaxis for HIV documented in this encounter Additional Health Concerns Assessment Noted Time PHQ-9 Depression Total Score: 6 11/17/19 24 9:40 AM EDT documented as of this encounter Care Teams Kayak Maker Relationship Specialty Start Date End Date Shirley Taylor ANP [address] [place] [address] PCP - General Family Medicine 04/13/20 documented as of this encounter
[2024-06-28 14:18] LABS: HIV AB/AG Nonreactive (Nonreactive); HIV Num 1 0.05 S/CO (0.00-0.99)
== END 2024-06-28 12:16 | disposition home or self-care (01) ==
LOC: HO.HHCL 12:15
PROVIDERS: Visit Provider Nurse Practitioner Primary Care
DX: Z11.4 Encounter for screening for human immunodeficiency virus [HIV] (principal); Z79.899 Other long term (current) drug therapy
CPT/HCPCS: 36415; 87389

== ENCOUNTER 2024-06-30 14:17 | Outpatient (AMB) | payer MEDICAID, SELFPAY ==
--- NOTE | 2024-06-30 14:20 | MHC.OFFVIS ---
Vital Signs 06/30/24 14:24 BP 108/60 Intake Visit Reasons: 3 month follow up Shellfish Farming Supervisor: Shellfish Farming Supervisor Present (Lashay) Accompanied by: Daughter Allergies shellfish derived [SHELLFISH DERIVED] Allergy (Severe, Verified 06/30/24 14:21) SWELLING cat dander [CATS] Allergy (Unknown, Verified 06/30/24 14:21) UNKNOWN crab Allergy (Unknown, Verified 06/30/24 14:21) UNKNOWN DUST Allergy (Unknown, Uncoded 04/26/24 10:03) RASH PEANUT BUTTER Allergy (Unknown, Uncoded 04/26/24 10:03) UNKNOWN Peanut Butter Flavor Allergy (Unknown, Uncoded 04/26/24 10:03) Swelling peanuts Allergy (Unknown, Uncoded 04/26/24 10:03) swollen pollen Allergy (Unknown, Uncoded 04/26/24 10:03) rash shellfish Allergy (Unknown, Uncoded 04/26/24 10:03) Swelling nail polsh remover Adverse Reaction (Intermediate, Uncoded 04/26/24 10:03) Rash HPI Comments Details: Presenting for three-month follow-up after initiating continuous control pills for pelvic pain. Her pain has completely resolved on continuous control pills. The patient has no complaints PFSH Medical History Lumbar radiculopathy Dental caries Fracture of dental congregation Periodontal disease Obstructive sleep apnea syndrome History of fracture of nasal bone Carpal tunnel syndrome Tension type headache Obesity Thyromegaly Low back pain Asthma Depression Surgical History [place] teeth removed Social History Patient Tobacco Use Status: Never used Tobacco Female Reproductive History Menstrual Age of Menarche: 10 Date of last menstrual period: 06/15/24 control method: pills Total pregnancies: 1 Full term: 1 Review of Systems Const All systems reviewed & are unremarkable except as noted in HPI and below Reports as per HPI and Reports no additional complaints GI Reports no additional complaints Reports no additional complaints Assessment & Plan Assessment & Plan (1) Pelvic pain: Comment: Endometriosis Code(s): R10.2 - Pelvic and perineal pain Category: Medical Plan: Recommended for the patient to continue taking control pills continuously for 84 days and 1 week off and follow-up in 1 year for annual exam. All questions answered, the patient verbalized understanding Medications: Refilled L norgest/e.estradiol-e.estrad 0.15 mg-30 mcg (84)/10 mcg (7) 1 tab PO DAILY 84 days 84 ea 0RF Coding Level of Care Code Est Pt Level 3 (86969) Diagnoses Pelvic pain R10.2
[2024-06-30 14:24] VITALS: BP 108/60
--- OUTSIDE RECORDS SUMMARY | 2024-06-30 18:09 | XMS_ITS | Encounter Summary ---
Author Organization [employer] Address [address] [place] [address] Care Team Providers Care County Home Demonstration Agent Name Role Phone Shirley Taylor Primary Care Provider [phone] Encounter Details Date Type Department Care Team ([facility] st Contact Info) Description 06/27/2024 Orders Only [facility] MEDICINE [address] [place], [place] [phone] Shirley Taylor ANP [address] [place] [address] Iron deficiency anemia, unspecified iron deficiency anemia [...] documented as of this encounter Care Teams County Home Demonstration Agent Relationship Specialty Start Date End Date Shirley Taylor ANP [address] [place] [phone] PCP - General Family Medicine 04/13/20 documented as of this encounter
--- OUTSIDE RECORDS SUMMARY | 2024-06-30 18:09 | XMS_ITS | Encounter Summary ---
Author Organization [employer] Address [address] [place] [address] Care Team Providers Care Senior Clinical Project Manager Name Role Phone Shirley Taylor Primary Care Provider [phone] Reason for Visit * Reason Comments Med Refill Encounter Details Date Type Department Care Team ([facility] st Contact Info) Description 06/25/2024 Refill [facility] MED[facility]INE [address] [place] [address] Shirley Taylor ANP [address] [place] [address] Encounter for pre-exposure prophylaxis for HIV Social [...] documented as of this encounter Care Teams Senior Clinical Project Manager Relationship Specialty Start Date End Date Shirley Taylor ANP [address] [place] [address] PCP - General Family Medicine 04/13/20 documented as of this encounter
--- OUTSIDE RECORDS SUMMARY | 2024-06-30 18:09 | XMS_ITS | Encounter Summary ---
Author Organization [employer] Address [address] [place] [address] Care Team Providers Care Creative Services Designer Name Role Phone Shirley Taylor Primary Care Provider [phone] Encounter Details Date Type Department Care Team ([facility] st Contact Info) Description 06/14/[address] [facility] MEDIC[facility] [address] [place] [address] Shirley Taylor ANP [address] [place] [address] Social History Tobacco Use Types Packs/Day Years [...] on file documented as of this encounter Procedures Procedure Name Priority Date/Time Associated Diagnosis Comments HIV 1/2 ANTIGEN/ANTIBODY, FOURTH GENERATION W/RFL Routine 06/28/2024 12:16 PM EST On pre-exposure prophylaxis for HIV documented in this encounter Results * HIV-1/2 Antigen and Antibodies, Fourth Generation, with Reflexes (06/28/2024 12:16 PM EST) HIV AB/AG Nonreactive Nonreactive [facility] Comment:HIV-1 p24 Ag and/or HIV-1/HIV-2 Ab not detected.A test result that is nonreactive does not exclude thepossibility of exposure to or infection with HIV-1 and/orHIV-2. Nonreactive results in this assay for individualswith prior exposure to HIV-1 and/or HIV-2 may be due toantigen and antibody levels that are below the limit ofdetection of this assay.The [employer] HIV Ag/Ab Combo assay result andsupplemental assay results should be interpreted inconjunction with the patient's clinical presentation,history and other laboratory results. If the results areinconsistent with clinical evidence, additional testing issuggested to confirm the result. Blood Venous blood specimen / Unknown 06/28/2024 12:16 PM EST 06/28/2024 1:22 PM EST Shirley KU LAB BLOOD ORDERABLES Final Resul t [facility] [address] [place] [phone] [phone] documented in this encounter Visit Diagnoses Diagnosis On pre-exposure prophylaxis for HIV- Primary documented in this encounter Additional Health Concerns Assessment Noted Time PHQ-9 Depression Total Score: 6 11/17/19 24 9:40 AM EDT documented as of this encounter Care Teams Creative Services Designer Relationship Specialty Start Date End Date Shirley Taylor ANP [address] [place] [phone] PCP - General Family Medicine 04/13/20 documented as of this encounter
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
--- OUTSIDE RECORDS SUMMARY | 2024-06-30 18:10 | XMS_ITS | Clinical Summary ---
Author Organization [facility] Address [address] [place] [address] Care Team Providers Care Tool Grinder Operator Surface Name Role Phone Unavailable Primary Care Provider [...]
--- OUTSIDE RECORDS SUMMARY | 2024-06-30 18:10 | XMS_ITS | Encounter Summary ---
Author Organization [employer] Address [address] [place] [address] Care Team Providers Care Electronic Warfare Specialist Name Role Phone Shirley Taylor KINGS Primary Care Provider [phone] Reason for Visit * Reason Comments Med Refill Encounter Details Date Type Department Care Team ([facility] st Contact Info) Description 06/09/2024 Refill [facility] [address] [place] [address] Katie Blackman MD [address] [place] [address] Social History Tobacco Use Types Packs/Day Years [...] documented as of this encounter Care Teams Electronic Warfare Specialist Relationship Specialty Start Date End Date Shirley Taylor ANP [address] [place] [address] PCP - General Family Medicine 04/13/20 documented as of this encounter
--- OUTSIDE RECORDS SUMMARY | 2024-06-30 18:10 | XMS_ITS | Encounter Summary ---
Author Organization [employer] [facility] Address [address] [place] [address] Care Team Providers Care Friction Paint Machine Tender Name Role Phone Shirley Taylor Primary Care Provider [phone] Encounter Details Date Type Department Care Team (Latest Contact Info) Description 11/28/2021 Abstract [facility] CONVERSIONS Dental, Provider, DDS Social History Tobacco [...] on filedocumented in this encounter Care Teams Friction Paint Machine Tender Relationship Specialty Start Date End Date Shirley Taylor ANP [address] [place] [address] PCP - General Family Medicine 04/13/20 documented as of this encounter
--- OUTSIDE RECORDS SUMMARY | 2024-06-30 18:10 | XMS_ITS | Encounter Summary ---
Author Organization [facility] Address [address] [place] [address] Phone Care Team Providers Care Granite Polisher Apprentice Name Role Phone Unavailable Primary Care Provider Unavailabl e Encounter Details Date Type Department Care Team ([facility] st Contact Info) Description 01/15/2017 Conversion Encounter [facility] - [address] [address] Social History Tobacco Use Types Packs/Day Years [...]
--- OUTSIDE RECORDS SUMMARY | 2024-06-30 18:10 | XMS_ITS | Clinical Summary ---
Author Organization [facility] Address [address] [place] [address] Phone Care Team Providers Care Interventional Radiology Technologist Name Role Phone Unavailable Primary Care Provider [...]
== END 2024-06-30 14:26 | disposition home or self-care (01) ==
LOC: HO.HWS 14:17
PROVIDERS: PCP Nurse Practitioner Primary Care; Visit Provider Obstetrics & Gynecology
DX: R10.2 Pelvic and perineal pain (principal)
CPT/HCPCS: 99213

== ENCOUNTER → 2024-06-30 14:17 | Outpatient (BNVA) | payer MEDICAID, SELFPAY | PROVIDERS: PCP Nurse Practitioner Primary Care; Visit Provider Obstetrics & Gynecology | DX: R10.2 Pelvic and perineal pain (principal); Z79.3 Long term (current) use of hormonal contraceptives | CPT/HCPCS: 99212 ==

== ENCOUNTER 2024-08-05 09:18 | Outpatient (REF) | payer MEDICAID, SELFPAY ==
--- NOTE | ~2024-08-05 | XR_ITS ---
EXAMINATION: XR SACRUM AND COCCYX CLINICAL INFORMATION: tailbone pain s/p fall COMPARISON: April 26, 2024. TECHNIQUE: 2 views of the sacrum and 2 views of the coccyx were obtained. FINDINGS: No acute cortical disruption. No gross malalignment. No lytic or blastic lesions. XR/XR sacrum coccyx min 2V IMPRESSION: No acute fracture. Negative exam. Electronically signed by: Timothy Shelton MD 08/05/2024 11:36 AM EST
--- OUTSIDE RECORDS SUMMARY | 2024-08-05 10:05 | XMS_ITS | Clinical Summary ---
Author Organization [facility] Address [address] [place] [phone] Phone Care Team Providers Care Kick Boxer Name Role Phone Unavailable Primary Care Provider Unavailabl e Immunizations Immunization Administration Dates Next Due DTaP 5 09/29/1995,07/01/1994,02/28/1994 [...]
--- OUTSIDE RECORDS SUMMARY | 2024-08-05 10:05 | XMS_ITS | Clinical Summary ---
Author Organization [facility] Address [address] [place] [address] Care Team Providers Care Rangeland Management Specialist Name Role Phone Unavailable Primary Care Provider Unavailabl e Social History Tobacco Use Types Packs/Day Years Used Date Smoking Tobacco: Never Assessed Comments Unknown Sex and Gender Information Value Date Recorded Sex Assigned at Not on file Legal Sex Female 1:14 PM EST Gender Identity Not on file Sexual Orientation Not on file Plan of Treatment Health Maintenance Due Date Last Done Comments DTaP,Tdap,and Td Vaccines (1 - Tdap) 2012 Hepatitis B Vaccines (1 of 3 - 19+ 3-dose series) 2012 Cervical Cancer Screening: P ap Smear 2014 COVID-19 Vaccine (2023-2 5 season) 2024 Influenza Vaccine (#1) 2024 [...] patient's age to complete this topic Meningococcal B Vacine Aged Out No lo nger eligible based on patient's age to complete [...]
--- OUTSIDE RECORDS SUMMARY | 2024-08-05 10:05 | XMS_ITS | Encounter Summary ---
Author Organization [facility] Address [address] [place] [address] Phone Care Team Providers Care Dude Ranch Manager Name Role Phone Unavailable Primary Care Provider Unavailabl e Encounter Details Date Type Department Care Team ([facility] st Contact Info) Description 01/15/2017 Conversion Encounter [facility] - [address] [address] Social History Tobacco Use Types Packs/Day Years [...]
== END 2024-08-05 09:19 | disposition home or self-care (01) ==
LOC: HO.HHCX 09:18
PROVIDERS: Visit Provider Family Medicine
DX: M53.3 Sacrococcygeal disorders, not elsewhere classified (principal)
CPT/HCPCS: 72220

== ENCOUNTER → 2024-08-05 09:18 | Outpatient (BNV) | payer MEDICAID, SELFPAY | PROVIDERS: Visit Provider Radiology Diagnostic Radiology | DX: M53.3 Sacrococcygeal disorders, not elsewhere classified (principal) | CPT/HCPCS: 72220 ==

== ENCOUNTER 2024-08-11 12:00 | Day surgery (SDC) | payer MEDICAID, SELFPAY ==
--- NOTE | ~2024-08-11 | XR_ITS ---
EXAMINATION: XR SOFT TISSUE NECK CLINICAL INDICATION: ?FB COMPARISON: Correlation made with CT cervical spine 04/26/2024. TECHNIQUE: 2 views of the soft tissue neck were obtained. FINDINGS: Soft tissue films of the neck demonstrate a normal larynx, pharynx and upper trachea. Normal epiglottis. Normal larynx. Normal area of glottic folds. Mildly prominent adenoidal tissues. No soft tissue swelling or opaque foreign body is demonstrated. Mild reversal of the normal cervical lordosis is unchanged. XR/XR soft tissue neck IMPRESSION: No radiopaque foreign body identified. Electronically signed by: Jam Carpio MD 08/11/2024 01:02 PM EDT
[2024-08-11 12:30] VITALS: BP 108/54; PULSE 65; RESP 16; TEMP 36.1; O2SAT 96; BMI 40.9
--- NOTE | 2024-08-11 12:36 | ED_ITS ---
HPI - General Adult General Chief complaint: Skin/Abscess/Foreign Body Stated complaint: Object stuck in throat? Time Seen by Provider: 08/11/24 16:41 Source: patient Mode of arrival: ambulatory Limitations: no limitations History of Present Illness ED Provider: DR. Potts HPI narrative: 28-year-old female otherwise healthy came in for evaluation of a unable to swallow since this morning, patient is on a certain diet that she eats raw garlic in the morning, 1 big piece of garlic stuck in the throat ever since patient is unable swallow even small sips of fluid, patient started to burp then followed by regurgitation and vomiting. no abdominal pain, no drooling. Related Data Home Medications ?Medication ?Instructions ?Recorded ?Confirmed albuterol sulfate 90 mcg/actuation 1 inh inhalation QID 08/03/20 06/17/23 aerosol inhaler cholecalciferol (vitamin D3) 50 50 mcg PO DAILY 08/03/20 06/17/23 mcg (2,000 unit) capsule valacyclovir 500 mg tablet 500 mg PO DAILY 08/03/20 06/17/23 (Valtrex) fluoxetine 20 mg capsule 20 mg PO QAM 09/26/21 06/17/23 trazodone 50 mg tablet 0 mg PO 09/26/21 04/27/23 duloxetine 20 mg capsule,delayed 40 mg PO DAILY 06/17/23 06/17/23 release gabapentin 300 mg capsule 300 mg PO BID anxiety 06/17/23 06/17/23 propranolol 20 mg tablet 10 - 20 mg PO BID PRN panic attack 06/17/23 06/17/23 trazodone 100 mg tablet 100 mg PO BEDTIME 06/17/23 06/17/23 Previous Rx's ?Medication ?Instructions ?Recorded omeprazole 40 mg capsule,delayed 40 mg PO DAILY #90 caps 04/17/21 release methocarbamol 500 mg tablet 500 mg PO TID muscle spasms 30 02/19/24 days #90 tabs clotrimazole-betamethasone 1 1 appl topical BID 5 days #45 grams 03/15/24 %-0.05 % topical cream cyclobenzaprine 5 mg tablet 5 mg PO Q8H PRN muscle pain #7 tabs 04/26/24 lidocaine 5 % topical patch 1 patch topical DAILY #15 ea 04/26/24 (Lidoderm) L norgest/E estradiol-E estrad 1 tab PO DAILY 84 days #84 ea 07/08/24 0.15 mg-30 mcg (84)/10 mcg(7) tabs,3mos Allergies Allergy/AdvReac Type Severity Reaction Status Date / Time shellfish derived Allergy Severe SWELLING Verified 08/11/24 12:31 [SHELLFISH DERIVED] cat dander [CATS] Allergy Unknown UNKNOWN Verified 08/11/24 12:31 crab Allergy Unknown UNKNOWN Verified 08/11/24 12:31 DUST Allergy Unknown RASH Uncoded 08/11/24 12:31 PEANUT BUTTER Allergy Unknown UNKNOWN Uncoded 08/11/24 12:31 Peanut Butter Flavor Allergy Unknown Swelling Uncoded 08/11/24 12:31 peanuts Allergy Unknown swollen Uncoded 08/11/24 12:31 pollen Allergy Unknown rash Uncoded 08/11/24 12:31 shellfish Allergy Unknown Swelling Uncoded 08/11/24 12:31 nail polsh remover AdvReac Intermediate Rash Uncoded 08/11/24 12:31 Review of Systems Review of Systems: All other systems are reviewed and are negative Constitutional: Reports as per HPI and Reports no additional constitutional complaints Eyes: Reports as per HPI and Reports no additional eye complaints Reports system reviewed and no additional complaints, except as documented Cardiovascular: Reports as per HPI and Reports no additional cardiovascular complaints Respiratory: Reports as per HPI and Reports no additional respiratory complaints Gastrointestinal: Reports as per HPI and Reports no additional gastrointestinal complaints Genitourinary: Reports no additional female genitourinary complaints Musculoskeletal: Reports no additional musculoskeletal complaints Skin/Breast: Reports system reviewed and no additional complaints, except as docu Psychiatric: Reports no additional psychiatric complaints Endocrine: Reports no additional endocrine complaints Hematologic/Lymphatic: Reports no additional hematologic/lymphatic complaints Allergic/Immunologic: Reports no additional allergic/immunologic complaints Reports system reviewed and no additional complaints, except as documented and Reports Abnormal speech present [facility] Past Medical History Medical History Lumbar radiculopathy Dental caries Fracture of dental cheondoism Periodontal disease Obstructive sleep apnea syndrome History of fracture of nasal bone Carpal tunnel syndrome Tension type headache Obesity Thyromegaly Low back pain Asthma Depression Surgical History [place] teeth removed Social History Social History Patient Tobacco Use Status: Never used Tobacco Smoked in Last 30 Days: No Use of substances other than those prescribed or required for medical reasons: No Advance Directives: No Advance Directives Information Provided: Yes Do you have a plan to hurt others: No Plan Physical Exam ED Vital Signs: Vital Signs - 24 hr 08/11/24 12:30 08/11/24 16:19 Temperature 97.0 F 97.9 F Pulse Rate 65 74 Respiratory Rate 16 16 Blood Pressure 108/54 L 125/80 Pulse Oximetry 96 94 Oxygen Delivery Method Room Air Room Air BMI result Body Mass Index 40.9 Vital signs have been reviewed and appear to be correct. Blood pressure elevated. Heart rate normal. Respiratory rate normal. Temperature normal. Oxygen saturation normal. Appearance: Alert. Oriented X3. No acute distress. Head: Normal external exam. Normocephalic. Atraumatic. No Boyd signs noted. No raccoon eyes noted Eyes: PERRLA. EOMI. Conjunctiva and sclera normal. Eyelids normal. ENT: TM's Normal. Pharynx normal. Uvula midline. Moist mucous membranes. No trismus noted. No drooling noted. No muffled voice noted. Neck: Normal inspection. Neck supple. FROM. No adenopathy. Thyroid Normal. No meningeal signs. No neck mass noted. CVS: Normal heart rate and rhythm. Heart sound normal. No murmurs noted. Pulses normal throughout. Respiratory: No respiratory distress. Painless inspiration. Breath sounds normal. No wheezes/rales/rhonchi noted. Chest nontender. No accessory muscle usage noted or decreased air movement noted. Abdomen: Soft and nontender. Bowel sounds normal in all 4 quadrants. No distention noted. No organomegaly noted. No visible injury noted. Back: No CVA tenderness. Full range of motion noted. Skin: Skin warm and dry. Normal skin color. Normal skin turgor. No rashes/lesions/lacerations noted. Extremities: No lower extremity edema. Extremities exhibit normal range of motion. Extremities nontender. Neuro: Oriented X 3. Cranial nerve exam: II-XII are grossly intact No motor deficit. No sensory deficit. Reflexes normal. Course Course Course Narrative: This is an RME: Additional HPI, ROS, PE not included below will be deferred to primary provider. RME assessment and note performed by: Kenyatta Gordon PA-C This is a 28-year-old female who presents emergency department for ? Foreign body stuck in throat. Patient states that she swallowed a whole clove of raw garlic this morning. She states that she has had vomiting every time she was tried to get this down. She is speaking in full sentences under no acute distress. No trismus, drooling, or dysphonia. No foreign body visualized on examination. We will attempt to drink tree sun to attempts to get clove of garlic down. Further ER evaluation needed. Plan: X-ray Reevaluation(s) Reevaluation #1: 28-year-old female with foreign body ( garlic ) Stuck in the throat, glucagon IV was given with no relief., unable to swallow liquid in the ED case was discussed with Dr. Beckman (GI on-call), will take the patient for endoscopy. Time: 17:08 Medications Administered Discontinued Medications Generic Name Dose Route Start Last Admin Trade Name Freq PRN Reason Stop Dose Admin Famotidine 20 mg 08/11/24 16:56 08/11/24 17:05 Famotidine/Pf 20 Mg/2 Ml Vial IVPUSH 08/11/24 16:57 20 mg ONCE ONE Administration Glucagon 1 mg 08/11/24 16:54 08/11/24 17:04 Glucagon Hcl 1 Mg Vial IVPUSH 08/11/24 16:55 1 mg ONCE ONE Administration Acetaminophen 1,000 mg in 100 mls @ 400 mls/hr 08/11/24 17:05 08/11/24 17:09 Ofirmev IV 08/11/24 17:19 400 mls/hr ONCE ONE Administration Medical Decision Making Differential Diagnosis Differential Diagnoses: The differential diagnosis associated with the presentation includes ( Foreign body impaction in esophagus, esophagitis, gastritis.) Admission/Observation Consideration of admission/observation: Escalation of care including admiss ion/observation considered Consult Healthcare Provider Management of the patient was discussed with: Case Management Rn ( Dr. Beckman) Independent Interpretation I performed an independent interpretation of an: Plain X-Ray ( soft tissue neck: No foreign body identified.) Radiology Impression Discussion of test interpretation with radiology: I have reviewed the radiologist's reading. Discharge Plan Discharge Clinical Impression: Esophageal foreign body Patient Disposition: Still a Patient
[2024-08-11 16:19] VITALS: BP 125/80; PULSE 74; RESP 16; TEMP 36.6; O2SAT 94
[2024-08-11] MEDS: glucagon HCL 1 MG VIAL IVPUSH (17:04)
[2024-08-11] MEDS: Famotidine/PF 20 MG/2 ML VIAL IVPUSH (17:05)
[2024-08-11] MEDS: Acetaminophen 1,000 MG/100 ML PIGGYBACK 400 MG IV (17:09)
--- NOTE | 2024-08-11 17:22 | PC.NURSE ---
Patient taken to surgery for EGD removal of garlic clove. Bedside report given to EQUIPMENT MAN.
--- NOTE | 2024-08-11 17:27 | PM.GICN ---
History of Present Illness Data of Consult Service Date: 08/11/24 Requesting physician: Estrella Potts Primary Care Provider: Shirley Taylor NP HPI Reason for consult: Dysphagia 28 YF with asthma since childhood seen [place] [facility] [place]24 since she has been unable to swallow since 8 am today. Patient is on a special diet and takes garlic and lemon in the morning, She usually chew the garlic and accidentally swallowed 1 big piece of garlic. Since then she has been unable to drink fluids or saliva and has been spitting. Pt was given IV glucaogon without relief of symptoms. Patient denies symptoms of heartburn or past episodes of dysphagia. Patient denies smoking or ETOH abuse. She has a history of childhood asthma and denies major cardiac problems. She admits to history of sleep apnea. She had a tonsillectomy a year ago and denies problems with anesthesia Family hx is negative for esophageal disease, colon polyps or GI malignancy. Review of Systems Review of Systems: Yes all other systems are reviewed and are negative PMFSH Past Medical History Medical History Lumbar radiculopathy Dental caries Fracture of dental judaism Periodontal disease Obstructive sleep apnea syndrome History of fracture of nasal bone Carpal tunnel syndrome Tension type headache Obesity Thyromegaly Low back pain Asthma Depression Surgical History Surgical History [place] teeth removed Social History Social History Patient Tobacco Use Status: Never used Tobacco Smoked in Last 30 Days: No Use of substances other than those prescribed or required for medical reasons: No Advance Directives: No Advance Directives Information Provided: Yes Do you have a plan to hurt others: No Plan Meds Allergies Allergy/AdvReac Type Severity Reaction Status Date / Time shellfish derived Allergy Severe SWELLING Verified 08/11/24 12:31 [SHELLFISH DERIVED] cat dander [CATS] Allergy Unknown UNKNOWN Verified 08/11/24 12:31 crab Allergy Unknown UNKNOWN Verified 08/11/24 12:31 DUST Allergy Unknown RASH Uncoded 08/11/24 12:31 PEANUT BUTTER Allergy Unknown UNKNOWN Uncoded 08/11/24 12:31 Peanut Butter Flavor Allergy Unknown Swelling Uncoded 08/11/24 12:31 peanuts Allergy Unknown swollen Uncoded 08/11/24 12:31 pollen Allergy Unknown rash Uncoded 08/11/24 12:31 shellfish Allergy Unknown Swelling Uncoded 08/11/24 12:31 nail polsh remover AdvReac Intermediate Rash Uncoded 08/11/24 12:31 Home Medications ?Medication ?Instructions ?Recorded ?Confirmed ?Last Taken ?Type albuterol sulfate 90 mcg/actuation 1 inh inhalation QID 08/03/20 06/17/23 Unknown History aerosol inhaler cholecalciferol (vitamin D3) 50 50 mcg PO DAILY 08/03/20 06/17/23 Unknown History mcg (2,000 unit) capsule valacyclovir 500 mg tablet 500 mg PO DAILY 08/03/20 06/17/23 Unknown History (Valtrex) fluoxetine 20 mg capsule 20 mg PO QAM 09/26/21 06/17/23 Unknown History trazodone 50 mg tablet 0 mg PO 09/26/21 04/27/23 Unknown History duloxetine 20 mg capsule,delayed 40 mg PO DAILY 06/17/23 06/17/23 Unknown History release gabapentin 300 mg capsule 300 mg PO BID anxiety 06/17/23 06/17/23 Unknown History propranolol 20 mg tablet 10 - 20 mg PO BID PRN panic attack 06/17/23 06/17/23 Unknown History trazodone 100 mg tablet 100 mg PO BEDTIME 06/17/23 06/17/23 Unknown History Physical Exam Vital Signs: Vital Signs: Last Vital Signs Temp 97.9 F 08/11/24 16:19 Pulse 74 08/11/24 16:19 Resp 16 08/11/24 16:19 BP 125/80 08/11/24 16:19 Pulse Ox 94 08/11/24 16:19 O2 Del Method Room Air 08/11/24 16:19 BMI result Body Mass Index 40.9 Const: General: no acute distress, anxious and other (spitting in an emesis bag) Nutritional Appearance: obese Orientation/consciousness: patient oriented x3 Limitations: no limitations HEENT: Head: Yes normal to inspection Ears: hearing grossly normal bilaterally Mouth: Normal oral and palatal mucosa present Eyes: Sclerae: sclerae normal Pupils: Equal, round and reactive pupils present Neck: Neck: Yes normal visual inspection Chest: Chest palpation & inspection: normal inspection of the chest Resp: Effort & Inspection: normal respiratory effort Auscultation: clear to auscultation bilaterally Cardio: Palpation: normal PMI Rate: regular rate Rhythm: regular rhythm Heart sounds: S1 normal heart sound present, S2 normal heart sound present and no murmurs GI: Palpation (GI): Soft to palpation, nontender and No hepatosplenomegaly present Auscultation: normal bowel sounds Rectal Exam - Female: deferred Skin: General skin exam: no rashes or lesions noted Neuro: General: patient oriented x3, gait normal and moves all extremities Cranial nerves: Yes Equal, round and reactive pupils present Psych: Appearance: grossly normal Mental Status: mental status grossly normal Assessment and Plan (1) Esophageal foreign body: Status: Acute Plan 28 YF with asthma since childhood seen at [facility] on 08/11/24 since she has been unable to swallow since 8 am today. She usually chew the garlic and accidentally swallowed 1 big piece of garlic. Since then she has been unable to drink fluids or saliva and has been spitting. Pt was given IV glucaogon without relief of symptoms. Patient denies smoking or ETOH abuse. She has a history of childhood asthma and denies major cardiac problems. She admits to history of sleep apnea. RECOMMENDATIONS: Patient advised further evaluation with an urgent upper endoscopy. Upper endoscopy procedure and potential complications including bleeding, perforation, reaction to anesthetics and aspiration were reviewed with the patient Procedures Date of Service Date of Service: 08/11/24
[2024-08-11 17:36] VITALS: BP 126/72; PULSE 83; RESP 18; TEMP 36.9; O2SAT 98
--- NOTE | 2024-08-11 17:44 | HO.ANESPROP2 ---
HPI - Anesthesia Eval Consult details Narrative: Esophageal foreign body PMFSH Active Problems Active Problems: All Active Problems Esophageal foreign body (Acute) Spondylolisthesis, lumbosacral region (Acute) Pelvic pain (Acute) Skin candidiasis (Acute) Muscle spasm (Acute) Asthma (Acute) Morbid obesity with BMI of 40.0-44.9, adult (Acute) Low back pain (Acute) Lumbar spondylosis (Acute) Lumbar pars defect (Acute) Encounter for screening examination for sexually transmitted disease (Acute) Recurrent HSV (herpes simplex virus) (Acute) Vaginal discharge (Acute) False positive syphilis serology (Acute) Bacterial vaginosis (Acute) Well woman exam (Acute) Vaginal irritation (Acute) Past Medical History Medical History Lumbar radiculopathy Dental caries Fracture of dental nondenominational Periodontal disease Obstructive sleep apnea syndrome History of fracture of nasal bone Carpal tunnel syndrome Tension type headache Obesity Thyromegaly Low back pain Asthma Depression Family History Family history of problems with anesthesia: No Surgical History Surgical History [place] teeth removed History of Problems with Anesthesia: No Social History Social History Patient Tobacco Use Status: Never used Tobacco Smoked in Last 30 Days: No Use of substances other than those prescribed or required for medical reasons: No Advance Directives: No Advance Directives Information Provided: Yes Do you have a plan to hurt others: No Plan Meds Allergies Allergy/AdvReac Type Severity Reaction Status Date / Time shellfish derived Allergy Severe SWELLING Verified 08/11/24 12:31 [SHELLFISH DERIVED] cat dander [CATS] Allergy Unknown UNKNOWN Verified 08/11/24 12:31 crab Allergy Unknown UNKNOWN Verified 08/11/24 12:31 DUST Allergy Unknown RASH Uncoded 08/11/24 12:31 PEANUT BUTTER Allergy Unknown UNKNOWN Uncoded 08/11/24 12:31 Peanut Butter Flavor Allergy Unknown Swelling Uncoded 08/11/24 12:31 peanuts Allergy Unknown swollen Uncoded 08/11/24 12:31 pollen Allergy Unknown rash Uncoded 08/11/24 12:31 shellfish Allergy Unknown Swelling Uncoded 08/11/24 12:31 nail polsh remover AdvReac Intermediate Rash Uncoded 08/11/24 12:31 Home Medications ?Medication ?Instructions ?Recorded ?Confirmed ?Last Taken ?Type albuterol sulfate 90 mcg/actuation 1 inh inhalation QID 08/03/20 06/17/23 Unknown History aerosol inhaler cholecalciferol (vitamin D3) 50 50 mcg PO DAILY 08/03/20 06/17/23 Unknown History mcg (2,000 unit) capsule valacyclovir 500 mg tablet 500 mg PO DAILY 08/03/20 06/17/23 Unknown History (Valtrex) fluoxetine 20 mg capsule 20 mg PO QAM 09/26/21 06/17/23 Unknown History trazodone 50 mg tablet 0 mg PO 09/26/21 04/27/23 Unknown History duloxetine 20 mg capsule,delayed 40 mg PO DAILY 06/17/23 06/17/23 Unknown History release gabapentin 300 mg capsule 300 mg PO BID anxiety 06/17/23 06/17/23 Unknown History propranolol 20 mg tablet 10 - 20 mg PO BID PRN panic attack 06/17/23 06/17/23 Unknown History trazodone 100 mg tablet 100 mg PO BEDTIME 06/17/23 06/17/23 Unknown History Exam Height,Weight and Vital Signs: Height 5 ft Weight 95 kg Last Vital Signs Temp 98.4 F 08/11/24 17:36 Pulse 83 08/11/24 17:36 Resp 18 08/11/24 17:36 BP 126/72 08/11/24 17:36 Pulse Ox 98 08/11/24 17:36 O2 Del Method Room Air 08/11/24 17:36 Airway Mallampati Class: II TM Dist: >3cm Neck ROM: Full Loose/Missing/Broken Teeth: No Heart: RRR Lungs: CTA Assessment and Plan Assessment Anesthesia Assessment: Anesthesia Plan Discussed and Chart Reviewed Final Anesthetic Review Family History of Problems with Anesthesia: No History of Problems with Anesthesia: No NPO: Yes ASA Class: II and Emergency Final Preanesthetic Review: No Changes in Pt Med Stat, Meds/Allgs Chart Reviewed, Consent Obtained/Reviewed and Anes Risks/Benef Reviewed Patient Risk: Intermediate Procedure Risk: Low Anesthetic Plan Anesthetic Plan: MAC: Disposition: Standard PACU
[2024-08-11] MEDS: Lactated Ringers 500 ML 20 ML IVCONT (17:49)
[2024-08-11 18:07] VITALS: BP 120/75; PULSE 79; RESP 18; TEMP 37; O2SAT 95
--- NOTE | 2024-08-11 18:07 | W.PM.OPN ---
Operative Note Operative Note Date of Service: 08/11/24 Narrative: FLEXIBLE TRANSORAL UPPER GASTROINTESTINAL ENDOSCOPY WITH BIOPSIES Pre-op diagnosis: Dysphagia, food impaction Post-op diagnosis: Same Endoscopist:? Fernando Beckman MD Anesthesia:?MAC UPPER ENDOSCOPY Consent: Indications for the procedure and potential complications of bleeding, perforation, reaction to medications and missed diagnosis were discussed with the patient and informed consent was obtained. Instrument: Olympus GIF H 190 mid size upper endoscope Monitoring: Vital signs and clinical assessment, continuous EKG monitoring, Pulse oximetry, Carbon Dioxide monitoring and blood pressure monitoring were done throughout the procedure. Procedure: The patient was placed in the left lateral decubitis position and pre-procedure medications were administered and a bite block was placed. The endoscope was inserted into the mouth and advanced under direct vision to the third part of duodenum. A careful inspection was made as the upper endoscope was withdrawn including a retroflexed examination of the proximal stomach; Findings and interventions are described below. Findings: Larynx: Normal Esophagus: GE junction at 35 cms. Mildly tortuous esophagus without stricture or ring. No foreign body seen in the esophagus - likely passed into the stomach spontaneously with air insufflation. Biopsies were obtained from proximal and distal esophagus to rule out EOE. Stomach: Normal gastric mucosa. A piece of garlic visulaized in the gastric fundus. Grade 1 flap valve on retroflexed examination of the cardia. Duodenum: Normal bulb and descending duodenum Intervention: Biopsies as noted above Impression and Post Procedure Diagnosis: Endoscopy Findings: ESOPHAGUS: Mildly tortuous esophagus without stricture or ring. No foreign body seen in the esophagus - likely passed into the stomach spontaneously with air insufflation. Biopsies were obtained from proximal and distal esophagus to rule out EOE. STOMACH: Normal DUODENUM: Normal Plan: Pt will be discharged home I will contact the patient with biopsy results Above findings were reviewed with the patient and relevant handouts were given and the discharge area. Pt advised to schedule a FU appt in the GI clinic if she noted recurrent dysphagia
[2024-08-11 18:20] VITALS: BP 113/68; PULSE 70; RESP 16; TEMP 36.3; O2SAT 98
--- OUTSIDE RECORDS SUMMARY | 2024-08-11 19:23 | XMS_ITS | Encounter Summary ---
Author Organization [employer] Address [address] 7[address] [place] [address] Care Team Providers Care Vehicle Refinisher Name Role Phone Claudia Sree KU Primary Care Provider [phone] Encounter Details Date Type Department Care Team (Late st Contact Info) Description 08/11/2024 Orders Only [facility] External Provider, [facility] Social History Tobacco Use Types Packs/Day Years [...] Procedure Name Priority Date/Time Associated Diagnosis Comments XR NECK SOFT TISSUE Routine 08/11/2024 1 2:36 PM EDT documented in this encounter Results * XR Neck Soft Tissue (08/11/2024 12:36 PM EDT) Anatomical Region Laterality Modality Head, Neck Radiographic Ely ging 08/11/2024 12:3 6 PM EDT Narrative 08/11/2024 1:05 PM EDT ? [facility] ?[address] ?[place] [address] ?XRay Report ? Signed ? Patient: Yani Bain ?MR#: [id number] ?? [id number] ? : 1995 ?Acct:[id number] ? Age/Sex: 28 / F ?ADM Date: 08/11/24 ? Loc: HO.ED ? Attending Dr: ? Ordering Physician: Kenyatta Gordon ?? Date of Service: 08/11/24 ?? Procedure(s): XR soft tissue neck ?? Accession Number(s): [id number] ? cc: Kenyatta Gordon; SREE PATEL NP ? EXAMINATION: ?? XR SOFT TISSUE NECK ? CLINICAL INDICATION: ?? ?FB ? COMPARISON: ?? Correlation made with CT cervical spine 04/26/2024. ? TECHNIQUE: ?? 2 views of the soft tissue neck were obtained. ? FINDINGS: ?? Soft tissue films of the neck demonstrate a normal larynx, pharynx and ?? upper trachea. Normal epiglottis. ?? Normal larynx. Normal area of glottic folds. Mildly prominent adenoidal ?? tissues. No soft tissue swelling or opaque foreign body is ?? demonstrated. ?? Mild reversal of the normal cervical lordosis is unchanged. ? XR/XR soft tissue neck ?? IMPRESSION: ?? No radiopaque foreign body identified. ? Electronically signed by: ??Jam Carpio MD ??08/11/2024 01:02 PM EDT RP ? Dictated By: ?Jam Carpio MD ? Signed By: ?<Electronically signed by Jam Carpio MD in OV> ?08/11/24 1302 ? DD/ 1236 ? TD/TT: 08/11/24 1258 ? Towel Folder: ? Procedure Note Donotantoniointerpreter, Image - 08/11/[address] [address] XRay Report Signed Patient: Ulysses Bain#: [id number] : 1995Acct:[id number] Age/Sex: 28 / FADM Date: 08/11/24 Loc: .ED Attending Dr: Ordering Physician: Kenyatta Gordon Date of Service: 08/11/24 Procedure(s): XR soft tissue neck Accession Number(s): [id number] cc: Kenyatta Gordon; SREE PATEL NP EXAMINATION: XR SOFT TISSUE NECK CLINICAL INDICATION: ?FB COMPARISON: Correlation made with CT cervical spine 04/26/2024. TECHNIQUE: 2 views of the soft tissue neck were obtained. FINDINGS: Soft tissue films of the neck demonstrate a normal larynx, pharynx and upper trachea. Normal epiglottis. Normal larynx. Normal area of glottic folds. Mildly prominent adenoidal tissues. No soft tissue swelling or opaque foreign body is demonstrated. Mild reversal of the normal cervical lordosis is unchanged. XR/XR soft tissue neck IMPRESSION: No radiopaque foreign body identified. Electronically signed by: Jam Carpio MD 08/11/2024 01:02 PM EDT Dictated By: Jam Carpio MD Signed By: <Electronically signed by Jam Carpio MD in OV> 08/11/24 1302 DD/ 1236 TD/TT: 08/11/24 1258 Towel Folder: [facility] External Provider IMG XR PROCEDURES Edited Result - Final documented in this encounter Visit Diagnoses Not on filedocumented in this encounter Additional Health Concerns Assessment Noted Time PHQ-9 Depression Total Score: 6 11/17/19 24 9:40 AM EDT documented as of this encounter Care Teams Vehicle Refinisher Relationship Specialty Start Date End Date Sree Patel ANP [address] [place] [address] PCP - General Family Medicine 04/13/20 documented as of this encounter
--- OUTSIDE RECORDS SUMMARY | 2024-08-11 19:23 | XMS_ITS | Encounter Summary ---
Author Organization [employer] Address [address] [facility] 7t [place] [address] Care Team Providers Care Home Theater Expert Name Role Phone Shirley Taylor Primary Care Provider [phone] Reason for Visit * Reason Onset Date Comments DME Script 08/05/2024 DME Script Donut Pillyoon(L&C) Encounter Details Date Type Department Care Team ([facility] st Contact Info) Description 08/05/2024 Telephone [facility] [address] [place] [address] Shirley Taylor ANP [address] [place] [address] DME Script (DME Script Donartemio Oneil(L&C)) Social History Tobacco Use Types Packs/Day Years [...] documented as of this encounter Care Teams Home Theater Expert Relationship Specialty Start Date End Date Shirley Taylor ANP [address] [place] [address] PCP - General Family Medicine 04/13/20 documented as of this encounter
--- OUTSIDE RECORDS SUMMARY | 2024-08-11 19:23 | XMS_ITS | Encounter Summary ---
Author Organization [employer] Address [address] [place] [address] Care Team Providers Care Surveillance Monitor Name Role Phone Claudia Shirley KU Primary Care Provider [phone] Reason for Visit * Reason Onset Date Comments DME Script 08/05/2024 DME Script Donut Pillyoon(L&C) Encounter Details Date Type Department Care Team ([facility] st Contact Info) Description 08/05/2024 Telephone [facility] [address] [place] [address] Elyse Maravilla DO [address] [place] [address] DME Script (DME Script Donut Pillow(L&C)) Social History Tobacco Use Types Packs/Day Years [...] encounter Miscellaneous Notes * Telephone Encounter - Liudmila Savage MA - 08/05/2024 8:11 AM EST DME Script Ericka Oneil generated sign and fax to L&C. Patient notified. documented in this encounter Plan of Treatment Not on file documented as of this encounter Visit Diagnoses Not on filedocumented in this encounter Additional Health Concerns Assessment Noted Time PHQ-9 Depression Total Score: 6 11/17/19 24 9:40 AM EDT documented as of this encounter Care Teams Surveillance Monitor Relationship Specialty Start Date End Date Shirley Taylor ANP [address] [place] [address] PCP - General Family Medicine 04/13/20 documented as of this encounter
--- OUTSIDE RECORDS SUMMARY | 2024-08-11 19:23 | XMS_ITS | Clinical Summary ---
Author Organization [facility] Address [address] [place] [address] Care Team Providers Care Documentation Specialist Name Role Phone Unavailable Primary Care [...]
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
--- OUTSIDE RECORDS SUMMARY | 2024-08-11 19:23 | XMS_ITS | Encounter Summary ---
Author Organization [facility] Address [address] [place] [address] Care Team Providers Care Cart Driver Name Role Phone Shirley Taylor Primary Care Provider [phone] Encounter Details Date Type Department Care Team (Latest Contact Info) Description 11/28/2021 Abstract [facility] Dental, Provider, DDS Social History [...] on filedocumented in this encounter Care Teams Cart Driver Relationship Specialty Start Date End Date Shirley Taylor ANP [address] [place] [address] PCP - General Family Medicine 04/13/20 documented as of this encounter
--- OUTSIDE RECORDS SUMMARY | 2024-08-11 19:24 | XMS_ITS | Clinical Summary ---
Author Organization [facility] Address [address] [place] [phone] Phone Care Team Providers Care Retail Agent Name Role Phone Unavailable Primary Care Provider [...]
--- OUTSIDE RECORDS SUMMARY | 2024-08-11 19:24 | XMS_ITS | Encounter Summary ---
Author Organization [facility] Address [address] [place] [address] Phone Care Team Providers Care Cementer Machine Applicator Name Role Phone Unavailable Primary Care Provider Unavailabl e Encounter Details Date Type Department Care Team ([facility] st Contact Info) Description 01/15/2017 Conversion Encounter [facility] - [address] [address] Social History Tobacco Use Types Packs/Day Years [...]
--- OUTSIDE RECORDS SUMMARY | 2024-08-11 19:24 | XMS_ITS | Clinical Summary ---
Author Organization [employer] Address [address] [facility] 7[address] [place] [address] Care Team Providers Care Personnel Training Officer Name Role Phone Sree Patel KINGS Primary Care Provider [phone] Allergies Active Allergy Reactions Criticality Noted Date Comments Bee Venom 11/28/2021 Cat Dander Unknown 07/09/2017 Other Reaction(s): Sneezing Dust Mite Extract Rash Low 05/03/2022 Other Reaction(s): Sneezing Mosquito (Culex Pipiens) Allergy Skin Test 11/28/2021 Peanut Butter Flavoring Agent (Non-Screening) Swelling 07/09/2017 Other Reaction(s): UNKNOWN Pollen Extract 05/03/2022 Shellfish Allergy Swelling 04/26/2024 Other Reaction(s): Facial swelling Shellfish-Derived Products High Other Reaction(s): SWELLING Medications EPINEPHrine (Epipen) 0.3 MG/0.3ML injection syringe Inject 0.3 mL into the shoulder, thigh, or buttocks. 05/30/20 20 Active hydrOXYzine pamoate (Vistaril) 25 MG capsule take 1 capsule by oral route at bedtime, may increase to 2 capsules QHS 10/17/19 22 Active valACYclovir (Valtrex) 1 g tablet take 1 tablet by oral route once daily 06/24/19 22 Active DULoxetine (Cymbalta) [address] capsule [...] 10 days. 40 tablet 05/04/20 24 Active omeprazole (PriLOSEC) 20 [...] split. 45 tablet 1 06/27/19 25 Active docusate sodium (Colace) 100 MG capsule Take 1 capsule (100 mg) by mouth 2 times daily. 180 capsule 1 08/05/19 25 026 Active polycarbophil (Fibercon) 625 MG tablet Take 1 tablet (625 mg) by mouth 2 times daily. 180 tablet 1 08/05/19 25 026 Active baclofen (Lioresal) 10 MG tablet Take 1 tablet (10 mg) by mouth if needed in the morning, at noon, and at bedtime for muscle spasms. 60 tablet 1 08/05/19 25 025 Active Diclofenac Sodium 1 % gel Apply 2 g topically if needed in the morning, at noon, in the evening, and at bedtime (pain). 150 g 3 08/05/19 25 Active acetaminophen (Tylenol 8 Hour) 650 MG ER tablet Take 1 tablet (650 mg) by mouth every 8 (eight) hours if needed for mild pain. Do not crush, chew, or split. 40 tablet 1 08/05/19 25 025 Active tiZANidine (Zanaflex) 2 MG tabletIndicatio ns:Strain of right shoulder, initial encounter Take 1 tablet (2 mg) by mouth every 6 (six) hours if needed for muscle spasms. 30 tablet 11/25/19 23 025 Discontinued cyclobenzaprine (Flexeril) 10 MG tablet Take 1 tablet (10 mg) by mouth 3 times daily for 10 days. 30 tablet 05/04/20 24 025 Discontinued acetaminophen (Tylenol Extra Strength) 500 MG tablet Take 2 tablets (1,000 mg) by mouth every 8 (eight) hours if needed for mild pain. 60 tablet 05/04/20 24 025 Discontinued polyethylene glycol, PEG, 3350 (MiraLax) 17 GM/SCOOP powder Take 17 g by mouth if needed each day (constipation) for up to 3 days. 527 g 2 08/05/19 25 025 Active Problems Problem Noted Date Diagnosed Date [...] 2023 Periodontal disease 10/12/2023 Fracture of dental baptism 10/12/2023 Periapical abscess without sinus 10/12/2023 Obstructive [...] Encounters Date Type Department Care Team Description 08/11/2024 Orders Only [facility] External Provider, [facility] 08/05/2024 Telephone [facility] MEDICINE [address] [place] [address] Elyse Maravilla DO DME Script (DME Script [employer] Pill[employer](L&C)) 08/05/2024 Telephone [facility] MEDICINE [address] [place] [address] Sree Patel ANP DME Script (DME Script [employer](L&C)) 08/04/2024 1:00 PM EST Office Visit [facility] WALK-IN [address] [address] Elyse Maravilla DO Acute coccygeal pain (Primary Dx); Chronic left-sided low back pain without sciatica; Chronic constipation 06/27/2024 Orders Only [facility] MEDICINE [address] [place] [address] Sree Patel ANP Iron deficiency anemia, unspecified iron deficiency anemia type (Primary Dx) 06/25/2024 Refill [facility] MEDICINE [address] [place] [address] Sree Patel ANP Encounter for pre-exposure prophylaxis for HIV 06/14/2024 Telephone [facility] MEDICINE [address] [place] [address] Sree Patel ANP 06/09/[address] [place] [address] Katie Blackman MD 05/27/2024 Telephone [facility] MEDICINE [address] [place] [address] Sree Patel ANP No Show 05/16/2024 Refill [facility] MEDICINE [address] [place] [address] Sree Patel ANP Heartburn from Last 3 Months Immunizations Name Administration [...] Mass Index 40.82 08/04/2024 12:51 PM EST Plan of Treatment Health Maintenance Due [...] Alcohol/Substance Use Screening 05/04/2025 05/04/2024 Tobacco Screening 08/04/2025 08/04/2024 DTaP/Tdap/Td Vaccines (7 - Td or Tdap) [...] TISSUE Routine 08/11/2024 1 2:36 PM EDT XR SACRUM COCCYX 2+ VIEWS STAT 08/05/2024 9:18 AM EST Acute coccygeal pain HIV 1/2 ANTIGEN/ANTIBODY, FOURTH GENERATION W/RFL Routine 06/28/2024 12:16 PM EST On pre-exposure prophylaxis for HIV LIPID PANEL, STANDARD Routine 12/29/2023 2:00 PM EDT Class 3 severe obesity with serious comorbidity and body mass index (BMI) of 40.0 to 44.9 in adult, unspecified obesity type (CMS/HCC) PROPHYLAXIS - ADULT Routine 11/28/2021 1 2:00 AM EDT INTRAORAL - COMPLETE SERIES OF RADIOGRAPHIC IMAGES Routine 11/28/2021 12:00 AM EDT PERIODIC ORAL EVALUATION - ESTABLISHED PATIENT Routine 11/28/2021 12:00 AM EDT GUERLINE HISTORICAL HEPATITIS B SURFACE ANTIGEN* Routine 10/31/2021 11:16 AM EDT HM PAP/HPV Routine 08/03/2020 from Last 3 Months or Most Recently Relevant to Health Maintenance Results * XR Neck Soft Tissue (08/11/2024 12:36 PM EDT) Anatomical Region Laterality Modality Head, Neck Radiographic Ely ging 08/11/2024 12:3 6 PM EDT Narrative 08/11/2024 1:05 PM EDT ? [facility] ?[address] ?[place] [address] ?XRay Report ? Signed ? Patient: Leung Gibson,Yani ?MR#: [id number] ?? [id number] ? : 1995 ?Acct:[id number] ? Age/Sex: 28 / F ?ADM Date: 08/11/24 ? Loc: HO.ED ? Attending Dr: ? Ordering Physician: Kenyatta Gordon ?? Date of Service: 08/11/24 ?? Procedure(s): XR soft tissue neck ?? Accession Number(s): [id number] ? cc: Kenyatta Gordon; SREE PATEL NP [...] DD/ 1236 ? TD/TT: 08/11/24 1258 ? Financial Project Manager: ? Procedure Note Lee Ann, Yamila - 08/11/[address] [address] XRay Report Signed Patient: Ulysses Bain#: [id number] : 1995Acct:[id number] Age/Sex: 28 / FADM Date: 08/11/24 Loc: HO.ED Attending Dr: Ordering Physician: Kenyatta Gordon Date of Service: 08/11/24 Procedure(s): XR soft tissue neck Accession Number(s): [id number] cc: Kenyatta Gordon; SREE PATEL NP EXAMINATION: [...] 08/11/24 1302 DD/ 1236 TD/TT: 08/11/24 1258 Financial Project Manager: [facility] External Provider IMG XR PROCEDURES Edited Result - Final * XR Sacrum Coccyx 2+ Views (08/05/2024 9:18 AM EST) Anatomical Region Laterality Modality Sacrum, Coccyx Radiographic Ely ging 08/05/2024 9:18 AM EST Narrative 08/05/2024 11:39 AM EST ?[facility] ?[address] ?[place] [address] ?XRay Report ? Signed ? Patient: Leung Gibson,Yani ?MR#: [id number] ?? [id number] ? : 1995 ?Acct:[id number] ? Age/Sex: 28 / F ?ADM Date: 03/07/25 ? Loc: HO.HHCX ? Attending Dr: Elyse Maravilla DO ? Ordering Physician: Elyse Maravilla DO ?? Date of Service: 08/05/24 ?? Procedure(s): XR sacrum coccyx min 2V ?? Accession Number(s): [id number] ? cc: Elyse Maravilla DO ? EXAMINATION: [...] DD/ 0918 ? TD/TT: 08/05/24 0950 ? Financial Project Manager: ? Procedure Note Yamila Nance - 08/05/[address] [address] XRay Report Signed Patient: Ulysses Bain#: [id number] : 1995Acct:[id number] Age/Sex: 28 / FADM Date: 08/05/24 Loc: HO.HHCX Attending Dr: Elyse Maravilla DO Ordering Physician: Elyse Maravilla DO Date of Service: 08/05/24 Procedure(s): XR sacrum coccyx min 2V Accession Number(s): [id number] cc: Elyse Maravilla DO EXAMINATION: XR SACRUM [...] Timothy Shelton MD 08/05/2024 11:36 AM EST RP Dictated By: Timothy Fox MD Signed By: <Electronically signed by Timothy Vides MDin OV> 08/05/24 1136 DD/ 7 TD/TT: 08/05/24 0950 Financial Project Manager: us Elyse Maravilla DO IMG XR PROCEDURES Final Resu lt * HIV-1/2 Antigen and Antibodies, Fourth Generation, with Reflexes (06/28/2024 12:16 PM EST) HIV AB/AG Nonreactive Nonreactive [facility] Comment:HIV-1 p24 Ag and/or HIV-1/HIV-2 Ab not detected.A test result that is nonreactive does not exclude thepossibility of exposure to or infection with HIV-1 and/orHIV-2. Nonreactive results in this assay for individualswith prior exposure to HIV-1 and/or HIV-2 may be due toantigen and antibody levels that are below the limit ofdetection of this assay.The The [employer] HIV Ag/Ab Combo assay result andsupplemental assay results should be interpreted inconjunction with the patient's clinical presentation,history and other laboratory results. If the results areinconsistent with clinical evidence, additional testing issuggested to confirm the result. Blood Venous blood specimen / Unknown 06/28/2024 12:16 PM EST 06/28/2024 1:22 PM EST us Sree [facility] LAB BLOOD ORDERABLES Final Resul t [facility] [address] [place] [address] [phone] * (ABNORMAL) Lipid Panel, Standard (12/29/2023 2:00 PM EDT) Triglycerides 182(H) <150 mg/dL [facility] Comment:Desirable Triglyceri de: less than 150 mg/dLBorderline High Triglyceride 150-199 mg/dLHigh Triglyceride: 200-499 mg/dLVery High Triglyceride: greater than or equal to 5OO mg/dL Cholesterol 221(H) <200 mg/dL [facility] Comment:Desirable Cholestero l: less than 200 mg/dLBorderline High Cholesterol: 200-239 mg/dLHigh Cholesterol: greater than 239 mg/dL LDL Cholesterol Calculated 135(H) <100 mg/dL [facility] Comment:Desirable LDL: less than 100 mg/dLNear Optimal/Above Optimal LDL: 110- 129 mg/dLBorderline High LDL: 130-159 mg/dLHigh LDL: 160-189 mg/dLVery High LDL: greater than or equal to 190 mg/dL HDL Cholesterol 50 >40 mg/dL [facility] Comment:Desirable HDL: great er than 40 mg/dL Note: This HDL assay may give artificially low results in patients with liver disease. Blood Venous blood specimen / Unknown 12/29/2023 2:00 PM EDT 12/29/2023 4:46 PM EDT [facility] LAB BLOOD ORDERABLES Final Resul t [facility] [address] [place] [address] [phone] * HEPATITIS B SURFACE ANTIGEN* (10/31/2021 11:16 AM EDT) Hepatitis B Surface Antigen Negative Negative [facility] Hepatitis C Antibody Nonreactive Nonreactive [facility] Comment: Antibodies to HCV [...] detection of this assay. ?? [facility] [employer] [facility] HIV Ag/Ab Combo assay result and supplemental assay results should be interpreted in conjunction with the patient's clinical presentation, history and other laboratory results. ??If the results are inconsistent with clinical evidence, additional testing is suggested to confirm the result. 10/31/2021 11:1 6 AM EDT Omari Ruiz MD HISTORICAL/NON ORDERABLE LABS Fi nal Result [facility] [address] * Pap Smear (08/03/2020) Pap Negative for intraephithelial lesion or malignancy Negative for intraephithelial lesion or malignancy, Other Historical Provider HEALTH MAINTENANCE Final Result from Last 3 Months or Most Recently Relevant to Health Maintenance Insurance LiquidM C3 LiquidM C[place] AD[place] Care Teams Personnel Training Officer Relationship Specialty Start Date End Date Sree Patel ANP [address] [place] [phone] PCP - General Family Medicine 04/13/20
== END 2024-08-11 18:23 | disposition home or self-care (01) ==
LOC: HO.ED 17:11 → HO.SSS 17:20
PROVIDERS: Emergency Provider Emergency Medicine; PCP Nurse Practitioner Primary Care; Visit Provider Internal Medicine Gastroenterology
PROC: 0DJ08ZZ Inspection of Upper Intestinal Tract, Via Natural or Artificial Opening Endoscopic (ICD-10-PCS; CPT 43235; principal; 2024-08-11 18:00)
DX: K22.4 Dyskinesia of esophagus (principal); T18.2XXA Foreign body in stomach, initial encounter; W44.F3XA Food entering into or through a natural orifice, initial encounter; G47.33 Obstructive sleep apnea (adult) (pediatric); J45.909 Unspecified asthma, uncomplicated; Y93.89 Activity, other specified; Y92.009 Unspecified place in unspecified non-institutional (private) residence as the place of occurrence of the external cause; Y99.9 Unspecified external cause status
CPT/HCPCS: 43239; 70360; 88305; 96374; 96375; 99285; J0131; J1610; J2704; J3010

== ENCOUNTER → 2024-08-11 12:36 | Outpatient (BNV) | payer MEDICAID, SELFPAY | PROVIDERS: PCP Nurse Practitioner Primary Care; Visit Provider Radiology Diagnostic Radiology | DX: S10.85XA Superficial foreign body of other specified part of neck, initial encounter (principal) | CPT/HCPCS: 70360 ==

== ENCOUNTER → 2024-08-11 17:12 | Outpatient (BNV) | payer MEDICAID, SELFPAY | PROVIDERS: Emergency Provider Emergency Medicine; PCP Nurse Practitioner Primary Care; Visit Provider Internal Medicine Gastroenterology | DX: R13.10 Dysphagia, unspecified (principal); T18.108A Unspecified foreign body in esophagus causing other injury, initial encounter | CPT/HCPCS: 43239; 99221 ==

== ENCOUNTER 2024-10-10 09:27 | Outpatient (REF) | payer MEDICAID, SELFPAY ==
--- OUTSIDE RECORDS SUMMARY | 2024-10-10 10:29 | XMS_ITS | Encounter Summary ---
Author Organization [employer] Address [address] [facility] 7t [place] [address] Care Team Providers Care Meat Apprentice Name Role Phone Shirley Taylor Primary Care Provider Reason for Visit * Reason Onset Date Comments Nurse Triage 09/26/2024 Encounter Details Date Type Department Care Team ([facility] st Contact Info) Description 09/26/2024 Telephone [facility] [address] [place], [place] [phone] Shirley Taylor ANP [address] [place] [address] Nurse Triage Social History Tobacco Use Types [...] take. Pt is advised to come to [facility] today open till 8pm to be seen [...] Description 11/16/2024 9:30 AM EDT Office Visit [facility] ADULT DENT[facility] [address] [place] [address] Michael Biswas DDS [address] [place] [address] 12/29/2024 10:00 AM EDT Office Visit [facility] [address] [place] [address] Shirley Taylor ANP [address] [place] [address] documented as of this encounter Visit Diagnoses Not on filedocumented in this encounter Additional Health Concerns Assessment Noted Time PHQ-9 Depression Total Score: 6 11/17/19 24 9:40 AM EDT documented as of this encounter Care Teams Meat Apprentice Relationship Specialty Start Date End Date Shirley Taylor ANP [address] [place] [address] PCP - General Family Medicine 04/13/20 documented as of this encounter
--- OUTSIDE RECORDS SUMMARY | 2024-10-10 10:29 | XMS_ITS | Encounter Summary ---
Author Organization [employer] [facility] Address [address] [place] [address] 7 [place] [address] Care Team Providers Care Spindle Repairer Name Role Phone Shirley Taylor Primary Care Provider [phone] Encounter Details Date Type Department Care Team (Latest Contact Info) Description 11/28/2021 Abstract [facility] CONVERSIONS Dental, Provider, DDS Social History Tobacco [...] Description 11/16/2024 9:30 AM EDT Office Visit [facility] ADULT DENT[facility] [address] [place] [address] Michael Biswas DDS [address] [place] [address] 12/29/2024 10:00 AM EDT Office Visit [facility] MED[facility] [address] [place] [address] Shirley Taylor ANP [address] [place] [address] documented as of this encounter Visit Diagnoses Not on filedocumented in this encounter Care Teams Spindle Repairer Relationship Specialty Start Date End Date Shirley Taylor ANP [address] [place] [address] PCP - General Family Medicine 04/13/20 documented as of this encounter
--- OUTSIDE RECORDS SUMMARY | 2024-10-10 10:29 | XMS_ITS | Clinical Summary ---
Author Organization [facility] Address [address] [place] [address] Care Team Providers Care Senior Games Technician Name Role Phone Unavailable Primary Care [...] Vaccine (2023-2 5 season) 2024 Influenza Vaccine (Season Ended) 2025 HIB Vaccines Aged Out No longer eligi [...] age to complete this topic Meningococcal B Vaccine Aged Out No l onger eligible based on patient's age to complete [...]
--- OUTSIDE RECORDS SUMMARY | 2024-10-10 10:29 | XMS_ITS | Encounter Summary ---
Author Organization [employer] Address [address] [place] [address] Care Team Providers Care Casualty Claim Adjuster Name Role Phone Shirley Taylor Primary Care Provider [phone] Reason for Visit * Reason Onset Date Comments OUTREACH 10/06/2024 Encounter Details Date Type Department Care Team ([facility] st Contact Info) Description 10/06/2024 Telephone [facility] MED[facility]INE [address] [place] [address] Shirley Taylor ANP [address] [place] [address] OUTREACH Social History Tobacco Use Types Packs/Day [...] Description 11/16/2024 9:30 AM EDT Office Visit [facility] ADULT DENTAL [address] [place] [phone] Michael Biswas DDS [address] [place] [address] 12/29/2024 10:00 AM EDT Office Visit [facility] MED[facility]INE [address] [place] [address] Shirley Taylor ANP [address] [place] [address] documented as of this encounter Visit Diagnoses Not on filedocumented in this encounter Additional Health Concerns Assessment Noted Time PHQ-9 Depression Total Score: 6 11/17/19 24 9:40 AM EDT documented as of this encounter Care Teams Casualty Claim Adjuster Relationship Specialty Start Date End Date Shirley Taylor ANP [address] [place] [address] PCP - General Family Medicine 04/13/20 documented as of this encounter
--- OUTSIDE RECORDS SUMMARY | 2024-10-10 10:29 | XMS_ITS | Clinical Summary ---
Author Organization [employer] Address [address] [facility] 7t [place] [address] Care Team Providers Care Front Elevator Operator Name Role Phone Sree Patel KINGS Primary Care Provider [phone] Allergies Active Allergy Reactions Criticality Noted Date [...] 2023 Periodontal disease 10/12/2023 Fracture of dental synagogue 10/12/2023 Periapical abscess without sinus 10/12/2023 Obstructive [...] Type Department Care Team Description 10/06/[address] [facility] MED[facility]INE [address] [place] [address] Sree Patel ANP OUTREACH 09/26/2024 3:00 PM EDT Office Visit [facility] ADULT DENTAL [address] [place] [address] Damaris Bautista Dental plaque (Primary Dx); Secondary dental caries; Fracture of dental synagogue 09/26/[address] [facility] MEDICINE [address] [place] [address] Sree Patel ANP Nurse Triage 08/30/[address] [address] Sree Patel ANP [facility] (Blue donut cushion 18'') 08/17/[address] [address] Sree Patel ANP [facility] (Blue donut cushion 18'') 08/13/[address] [facility] [address] [place] [address] Sree Patel ANP Heartburn 08/12/2024 Population Health Risk Score [facility] () [address] [phone] Provider, Population Health Generic 08/11/2024 Orders Only [facility] External Provider, [facility] 08/05/[address] [address] Elsye Maravilla DO DME Script (DME Script Donut Pillow(L&C)) 08/05/[address] [address] Sree Patel ANP DME Script (DME Script Donut Pillow(L&C)) 08/04/2024 1:00 PM EST Office Visit [facility] [address] [place] [address] Elyse Maravilla DO Acute coccygeal pain (Primary [...] Description 11/16/2024 9:30 AM EDT Office Visit [facility] ADULT DENTAL [address] [place] [address] Michael Biswas DDS [address] [place] [address] 12/29/2024 10:00 AM EDT Office Visit [facility] MEDICINE [address] [place] [address] Sree Patel ANP [address] [place] [address] Health Maintenance Due Date Last Done Comments [...] 5:58 PM EDT 08/12/2024 8:24 AM EDT [facility] LABS - 08/15/2024 11:30 AM EDT ----- ------- Name: Yani Bain ?Age/Sex: 28/F ? : 1995 Unit#: [id number] ?? Attend Dr: Fernando Beckman MD ?Re08/11/24 ?Status: DEP SDC ? Location: HO.SSS ?Disch: ? ----- ------- SPEC : [id number] ? RECD: 08/12/24-823 ? STATUS: ??SOUT ? REQ NUM: [id number] ? ELMER: 08/11/24-1757 ? SUBM DR: Fernando Beckman MD ? ENTERED: ??08/12/24 ?SP TYPE: Surgical ? OTHR DR: SREE PATEL LOADING SUPERVISOR ? ORDERED: ??Gross Micro L4/2 ? Diagnosis [...] microscopic examination, 3 pieces in cassette B. ([facility]) Copies To: ?? Fernando Beckman MD ?? [facility] ?? [address] ?? [place] [address] ?? [phone] ?? SREE PATEL NP ?? [facility] ?? [address] [facility] [address] ?? [place] [address] ? CONTINUED ON NEXT PAGE ----- ------- Name: Yani Bain ?Age/Sex: 28/F ? : 1995 Unit#: [id number] ?? Attend Dr: Fernando Beckman MD ?Re08/11/24 ?Status: DEP SDC ? Location: HO.SSS ?Disch: ? ----- ------- SPEC : [id number] ? RECD: 08/12/24 ? STATUS: ??SOUT ? REQ NUM: [id number] ? ELMER: 08/11/24-1757 ? SUBM DR: Fernando Beckman MD ? ENTERED: ??08/12/24-838 ?SP TYPE: Surgical ? OTHR : SREE PATEL LOADING SUPERVISOR ? ORDERED: ??Gross Micro L4/2 ? Copies To: ??(Continued) ?? [phone] ----- ------- Signed (signature on file) Cathleen [place] 08/15/24 1130 ? ----- ------- ? END OF REPORT ? us Generic External Data Provider LAB CYTOLOGY LILIAN COTA Final Result [facility] [address] [place] [address] [phone] * XR Neck Soft Tissue (08/11/2024 12:36 PM EDT) Anatomical Region Laterality Modality Head, Neck Radiographic Ely ging 08/11/2024 12:3 6 PM EDT Narrative 08/11/2024 1:05 PM EDT ? [facility] ?[address] ?[place], [place] [address] ?XRay Report ? Signed ? Patient: Leung Gibson,Yani ?MR#: [id number] ?? [id number] ? : 1995 ?Acct:[id number] ? Age/Sex: 28 / F ?ADM Date: 08/11/24 ? Loc: HO.ED ? Attending Dr: ? Ordering Physician: Kenyatta Gordon ?? Date of Service: 08/11/24 ?? Procedure(s): XR soft tissue neck ?? Accession Number(s): [id number] ? cc: Kenyatta Gordon; SREE PATEL NP [...] DD/ 1236 ? TD/TT: 08/11/24 1258 ? [employer] Chief Scientist: ? Procedure Note Yamila Nance - 08/11/2024 [place] [address] [facility] [place] [address] XRay Report Signed Patient: Ulysses Bain#: [id number] : 1995Acct:[id number] Age/Sex: 28 / FADM Date: 08/11/24 Loc: HO.ED Attending Dr: Ordering Physician: Kenyatta Gordon Date of Service: 08/11/24 Procedure(s): XR soft tissue neck Accession Number(s): [id number] cc: Kenyatat Gordon; SREE PATEL NP EXAMINATION: XR SOFT [...] 08/11/24 1302 DD/ 1236 TD/TT: 08/11/24 1258 [employer] Chief Scientist: [facility] External Provider IMG XR PROCEDURES Edited Result - Final * XR Sacrum Coccyx 2+ Views (08/05/2024 9:18 AM EST) Anatomical Region Laterality Modality Sacrum, Coccyx Radiographic Ely ging 08/05/2024 9:18 AM EST Narrative 08/05/2024 11:39 AM EST ?[facility] ?[address] ?[place] [address] ?XRay Report ? Signed ? Patient: Leung Gibson,Yani ?MR#: [id number] ?? [id number] ? : 1995 ?Acct:[id number] ? Age/Sex: 28 / F ?ADM Date: 03/07/25 ? Loc: HO.HHCX ? Attending Dr: Elyse Maravilla DO ? Ordering Physician: Elyse Maravilla DO ?? Date of Service: 08/05/24 ?? Procedure(s): XR sacrum coccyx min 2V ?? Accession Number(s): [id number] ? cc: Elyse Maravilla DO ? EXAMINATION: [...] DD/ 0918 ? TD/TT: 08/05/24 0950 ? [employer] Chief Scientist: ? Procedure Note Yamila Nance - 08/05/[address] [address] XRay Report Signed Patient: Ulysses Bain#: [id number] : 1995Acct:[id number] Age/Sex: 28 / FADM Date: 08/05/24 Loc: HO.HHCX Attending Dr: Elyse Maravilla DO Ordering Physician: Elyse Maravilla DO Date of Service: 08/05/24 Procedure(s): XR sacrum coccyx min 2V Accession Number(s): [id number] cc: Elyse Maravilla DO EXAMINATION: XR SACRUM [...] 08/05/24 1136 DD/ 0918 TD/TT: 08/05/24 0950 [employer] Chief Scientist: us Elyse Maravilla DO IMG XR PROCEDURES Final Resu lt * HIV-1/2 Antigen and Antibodies, Fourth Generation, with Reflexes (06/28/2024 12:16 PM EST) HIV AB/AG Nonreactive Nonreactive [facility] Comment:HIV-1 p24 Ag and/or HIV-1/HIV-2 Ab not detected.A test result that is nonreactive does not exclude thepossibility of exposure to or infection with HIV-1 and/orHIV-2. Nonreactive results in this assay for individualswith prior exposure to HIV-1 and/or HIV-2 may be due toantigen and antibody levels that are below the limit ofdetection of this assay.The [employer] HIV Ag/Ab Combo assay result andsupplemental assay results should be interpreted inconjunction with the patient's clinical presentation,history and other laboratory results. If the results areinconsistent with clinical evidence, additional testing issuggested to confirm the result. Blood Venous blood specimen / Unknown 06/28/2024 12:16 PM EST 06/28/2024 1:22 PM EST us Sree KU LAB BLOOD ORDERABLES Final Resul t [facility] [address] [place] [phone] * (ABNORMAL) Lipid Panel, Standard (12/29/2023 2:00 PM EDT) Triglycerides 182(H) <150 mg/dL [facility] Comment:Desirable Triglyceri de: less than 150 mg/dLBorderline High Triglyceride 150-199 mg/dLHigh Triglyceride: 200-499 mg/dLVery High Triglyceride: greater than or equal to 5OO mg/dL Cholesterol 221(H) <200 mg/dL [facility] Comment:Desirable Cholestero l: less than 200 mg/dLBorderline High Cholesterol: 200-239 mg/dLHigh Cholesterol: greater than 239 mg/dL LDL Cholesterol Calculated 135(H) <100 mg/dL [facility] Comment:Desirable LDL: less than 100 mg/dLNear Optimal/Above Optimal LDL: 110- 129 mg/dLBorderline High LDL: 130-159 mg/dLHigh LDL: 160-189 mg/dLVery High LDL: greater than or equal to 190 mg/dL HDL Cholesterol 50 >40 mg/dL [facility] Comment:Desirable HDL: great er than 40 mg/dL Note: This HDL assay may give artificially low results in patients with liver disease. Blood Venous blood specimen / Unknown 12/29/2023 2:00 PM EDT 12/29/2023 4:46 PM EDT [facility] LAB BLOOD ORDERABLES Final Resul t [facility] [address] [place] [address] [phone] * HEPATITIS B SURFACE ANTIGEN* (10/31/2021 [...] detection of this assay. ?? The [employer] Integrated HIV Ag/Ab Combo assay result and supplemental assay results should be interpreted in conjunction with the patient's clinical presentation, history and other laboratory results. ??If the results are inconsistent with clinical evidence, additional testing is suggested to confirm the result. 10/31/2021 11:1 6 AM EDT Omari Ruiz MD HISTORICAL/NON ORDERABLE LABS Fi nal Result [facility] [address] * Pap Smear (08/03/2020) Pathologist [facility] Pap Negative for intraephithelial lesion or malignancy Negative for intraephithelial lesion or malignancy, Other Historical Provider HEALTH MAINTENANCE Final Result from Last 3 Months or Most Recently Relevant to Health Maintenance Insurance [employer] [place] Care Teams Front Elevator Operator Relationship Specialty Start Date End Date Sree Patel ANP [address] [place] [address] PCP - General Family Medicine 04/13/20
--- OUTSIDE RECORDS SUMMARY | 2024-10-10 10:29 | XMS_ITS | Clinical Summary ---
Author Organization [facility] Address [address] [place] [address] Phone Care Team Providers Care Client Evaluator Name Role Phone Unavailable Primary Care Provider [...]
--- OUTSIDE RECORDS SUMMARY | 2024-10-10 10:29 | XMS_ITS | Encounter Summary ---
Author Organization [facility] Address [address] [place] [address] Phone Care Team Providers Care Reservation Agent Name Role Phone Unavailable Primary Care Provider Unavailabl e Encounter Details Date Type Department Care Team ([facility] st Contact Info) Description 01/15/2017 Conversion Encounter [facility] - [address] [address] Social History Tobacco Use Types Packs/Day Years [...]
[2024-10-10 12:03] LABS: HBsAGNum1 0.28 S/CO (0.00-0.99); HIV AB/AG Nonreactive (Nonreactive); HIV Num 1 0.07 S/CO (0.00-0.99); Hepatitis B Surface Antigen Negative (Negative); ~HepC Num1 0.11 S/CO (0.00-0.79); ~Hepatitis C Antibody Nonreactive (Nonreactive)
[2024-10-10 12:08] LABS: Syphilis Screen Reactive (Nonreactive)
[2024-10-10 18:25] LABS: Bacterial Vaginosis PCR NEGATIVE (Negative); Candida Group PCR NOT DETECTED (Not Detect); Candida glab krusei PCR NOT DETECTED (Not Detect); Trichomonas vaginalis PCR NOT DETECTED (Not Detect)
[2024-10-10 19:00] LABS: CT PCR NOT DETECTED (Not Detect.); NG PCR NOT DETECTED (Not Detect.)
[2024-10-16 13:49] LABS: RPR Quantitative Non-Reactive (Nonreactive); T.Pallidum Particle Agg Test Non-Reactive (Nonreactive)
== END 2024-10-10 09:28 | disposition home or self-care (01) ==
LOC: HO.LNP 09:27
PROVIDERS: PCP Nurse Practitioner Primary Care; Visit Provider Obstetrics & Gynecology
DX: Z01.419 Encounter for gynecological examination (general) (routine) without abnormal findings (principal); N76.0 Acute vaginitis; B96.89 Other specified bacterial agents as the cause of diseases classified elsewhere
CPT/HCPCS: 81515; 86592; 86780; 86803; 87340; 87389; 87491; 87591; 99395; 99459

== ENCOUNTER 2024-10-10 09:27 | Outpatient (AMB) | payer MEDICAID, SELFPAY ==
--- NOTE | 2024-10-10 09:39 | MHC.OFFVIS ---
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 Container Washer Machine Required: No Information Interpreted: non-clinical & clinical [employer]: [employer] Present (Tea Crawford TONE) Accompanied by: Self / Same As Patient Allergies shellfish derived [SHELLFISH DERIVED] Allergy (Severe, Verified 10/10/24 09:43) SWELLING cat dander [CATS] Allergy (Unknown, Verified 10/10/24 09:43) UNKNOWN crab Allergy (Unknown, Verified 10/10/24 09:43) UNKNOWN DUST Allergy (Unknown, Uncoded 10/10/24 09:43) RASH PEANUT BUTTER Allergy (Unknown, Uncoded 10/10/24 09:43) UNKNOWN Peanut Butter Flavor Allergy (Unknown, Uncoded 10/10/24 09:43) Swelling peanuts Allergy (Unknown, Uncoded 10/10/24 09:43) swollen pollen Allergy (Unknown, Uncoded 10/10/24 09:43) rash shellfish Allergy (Unknown, Uncoded 10/10/24 09:43) Swelling nail polsh remover Adverse Reaction (Intermediate, Uncoded 10/10/24 09:43) Rash Is last menstrual period known: Yes Last menstrual period: 09/27/24 HPI Comments Details: Presenting for annual exam. Complaining of vulvovaginal itching associated with foul odor and discharge. Last Pap smear was in 10/22 was negative [facility] Medical History Lumbar radiculopathy Dental caries Fracture of dental tenriism Periodontal disease Obstructive sleep apnea syndrome History of fracture of nasal bone Carpal tunnel syndrome Tension type headache Obesity Thyromegaly Low back pain Asthma Depression Surgical History History of nasal surgery Hx of tonsillectomy [place] teeth removed Family History Mother Bipolar 1 disorder Heart disease HTN (hypertension) Diabetes Father Diabetes Dementia Alcoholism Social History Household Members Other:: daughter Housing: Condominium Alcohol intake: never Patient Tobacco Use Status: Current everyday Tobacco user Cigarettes Per Day: 2 Current occupational status: unemployed Sexual orientation: Straight/Heterosexual Gender identity: Female Female Reproductive History Menstrual Age of Menarche: 10 Duration of menses: 3-5 days Date of last menstrual period: 09/27/24 control method: pills Total pregnancies: 2 Full term: 1 Number of Living Children: 1 Ab spontaneous: 1 Date of last pap smear: 10/08/23 Review of Systems Const All systems reviewed & are unremarkable except as noted in HPI and below Card Reports as per HPI Resp Reports as per HPI GI Reports as per HPI and Reports no additional complaints Reports as per HPI Physical Exam Vital Signs: Last Vital Signs BP 122/76 10/10/24 09:42 BMI result Body Mass Index 41.6 Const General: cooperative, healthy appearing and comfortable Chest Chest palpation & inspection: normal inspection of the chest and normal palpation of entire chest wall Breast/axilla inspection: normal inspection of the breasts and normal inspection of the axillae Breast/axilla palpation: normal palpation of the breasts, normal palpation of the axillae and no axillary lymphadenopathy Resp Effort & Inspection: normal respiratory effort Auscultation: clear to auscultation bilaterally Percussion: percussion normal Cardio Palpation: normal PMI Rate: regular rate Rhythm: regular rhythm Heart sounds: no murmurs and no rubs Peripheral pulses: Peripheral pulses 2+ throughout GI Inspection: Yes normal to inspection Palpation (GI): Soft to palpation, nontender, no guarding, not rigid and No hepatosplenomegaly present Percussion: Yes normal to percussion Auscultation: normal bowel sounds Rectal Exam - Female: deferred General: Yes bladder normal to palpation External Female Exam: No lesion Speculum Exam - Vagina: normal appearance of the vagina, normal palpation, normal vaginal discharge and not erythematous Speculum Exam - Cervix: normal appearance of the cervix and normal palpation Bimanual exam- vagina & uterus: normal bimanual exam, normal palpation, uterine size normal, bladder normal to palpation, consistency normal and normal palpation Bimanual Exam- Adnexa, other: normal adnexae, no masses and no tenderness Assessment & Plan Assessment & Plan (1) Well woman exam: Code(s): Z01.419 - Encounter for gynecological examination (general) (routine) without abnormal findings Category: Medical Plan: Pap smear this year. Counseled the patient about the recommended dietary allowance of 1000 mg of Calcium & 600 IU of vitamin D. The patient was instructed to perform monthly self-breast exams and to schedule an annual exam in a year; All questions answered and the patient verbalized understanding. Instructed the patient to schedule annual exam in a year (2) Vulvovaginitis: Comment: Mixed Code(s): N76.0 - Acute vaginitis Category: Medical Plan: GC and chlamydia cultures with BV panel taken. Per CDC recommendation, will screen for STI, HepBs Ag, HIV, RPR, Hep C Ab ordered. Will treat with Flagyl 500 mg p.o. b.i.d. x 7 days, in addition will treat with Terazol 0.8% q.h.s. for 3 days. Instructions given to the patient to refrain from sexual activity or to use condoms consistently and correctly during the BV treatment regimen, not to douch, it might increase the risk for relapse, and to call if symptoms persist or recur. Orders: Orders Hepatitis B Surface Antigen Today B96.89 - Other specified bacterial agents as the cause of diseases classified elsewhere, N76.0 - Acute vaginitis Hepatitis C Antibody Today B96.89 - Other specified bacterial agents as the cause of diseases classified elsewhere, N76.0 - Acute vaginitis Syphilis Screen Today B96.89 - Other specified bacterial agents as the cause of diseases classified elsewhere, N76.0 - Acute vaginitis HIV Ab/Ag Today B96.89 - Other specified bacterial agents as the cause of diseases classified elsewhere, N76.0 - Acute vaginitis Medications: New metronidazole 500 mg PO BID 7 days 14 tabs 0RF Coding Level of Care Code Est Pt Prev Care 40-64y(93895) Diagnoses Well woman exam Z01.419 Vulvovaginitis N76.0
[2024-10-10 09:42] VITALS: BP 122/76; BMI 41.6
--- OUTSIDE RECORDS SUMMARY | 2024-10-10 09:42 | XMS_ITS | Encounter Summary ---
Author Organization [employer] Address [address] [facility] [address] [place] [address] Care Team Providers Care Sewer Repairer Name Role Phone Shirley Taylor Primary Care Provider [phone] Reason for Visit * Reason Onset Date Comments OUTREACH 10/06/2024 Encounter Details Date Type Department Care Team ([facility] st Contact Info) Description 10/06/2024 Telephone [facility] MEDICINE [address] [place] [address] Shirley Taylor ANP [address] [place] [address] OUTREACH Social History Tobacco Use Types Packs/Day Years [...] encounter Miscellaneous Notes * Telephone Encounter - Fernando Ruiz MA - 10/06/2024 11:14 AM EDT T/C to pt to schedule a f/u HTN appt with PCP. Pt agreed to come in on 12/29/24 at 10am. documented in this encounter Plan of Treatment Upcoming Encounters Date Type Department Care Team (Late st Contact Info) Description 11/16/2024 9:30 AM EDT Office Visit [facility] ADULT DENTAL [address] [place] [phone] Michael Biswas DDS [address] [place] [address] 12/29/2024 10:00 AM EDT Office Visit [facility] MEDICINE [address] [place] [address] Shirley Taylor ANP [address] [place] [address] documented as of this encounter Visit Diagnoses Not on filedocumented in this encounter Additional Health Concerns Assessment Noted Time PHQ-9 Depression Total Score: 6 11/17/19 24 9:40 AM EDT documented as of this encounter Care Teams Sewer Repairer Relationship Specialty Start Date End Date Shirley Taylor ANP [address] [place] [phone] PCP - General Family Medicine 04/13/20 documented as of this encounter
--- OUTSIDE RECORDS SUMMARY | 2024-10-10 09:42 | XMS_ITS | Encounter Summary ---
Author Organization [employer] Address [address] [facility] [address] [place] [address] Care Team Providers Care Civil Rights Investigator Name Role Phone Shirley Taylor Primary Care Provider [phone] Reason for Visit * Reason Onset Date Comments Nurse Triage 09/26/2024 Encounter Details Date Type Department Care Team ([facility] st Contact Info) Description 09/26/2024 Telephone [facility] MEDICINE [address] [place], [place] [phone] Shirley Taylor ANP [address] [place] [address] Nurse Triage Social History Tobacco Use Types Packs/Day Years [...] encounter Miscellaneous Notes * Telephone Encounter - Sena Moser RN - 09/26/2024 11:35 AM EDT Triage call Pt reports vaginal discharge, cottage cheese like , white, itchiness, and odor. Pt reports OTC antifungal creams don't work and usually calls PCP to obtain a pill to take. Pt is advised to come to [facility] today open till 8pm to be seen by provider. Pt agrees with disposition. Protocol Used: Vaginal Discharge (Adult) Protocol-Based Disposition: See in Office or Video Visit Today Positive Triage Question: * Patient wants to be seen * All higher-acuity triage questions were negative Care Advice Discussed: * Reassurance and Education - Vaginal Yeast Infection * Antifungal Medicine for Yeast Infection * Genital Hygiene * Reasons To Call Back - test is positive - No improvement after treating yourself for a vaginal yeast infection - Discharge becomes yellow or green - Discharge becomes foul smelling or itchy - Fever or abdomen pain occur - You become worse * Telephone Encounter - Pedro Alexandre - 09/26/2024 11:14 AM EDT Symptoms: Itching - No Rash, Vaginal Bleeding - Not Outcome: Schedule an urgent appointment (within 4 hours) or talk to a nurse or provider soon Reason: Severe itching now The caller accepted this outcome. documented in this encounter Plan of Treatment Upcoming Encounters Date Type Department Care Team (Late st Contact Info) Description 11/16/2024 9:30 AM EDT Office Visit [facility] ADULT DENTAL [address] [place] [address] Michael Biswas DDS [address] [place] [address] 12/29/2024 10:00 AM EDT Office Visit [facility] MEDICINE [address] [place] [address] Shirley Taylor ANP [address] [place] [address] documented as of this encounter Visit Diagnoses Not on filedocumented in this encounter Additional Health Concerns Assessment Noted Time PHQ-9 Depression Total Score: 6 11/17/19 24 9:40 AM EDT documented as of this encounter Care Teams Civil Rights Investigator Relationship Specialty Start Date End Date Shirley Taylor ANP [address] [place] [phone] PCP - General Family Medicine 04/13/20 documented as of this encounter
--- OUTSIDE RECORDS SUMMARY | 2024-10-10 09:42 | XMS_ITS | Encounter Summary ---
Author Organization [facility] Address [address] [place] [address] Phone Care Team Providers Care Assembly Supervisor Name Role Phone Unavailable Primary Care Provider Unavailabl e Encounter Details Date Type Department Care Team ([facility] st Contact Info) Description 01/15/2017 Conversion Encounter [facility] - [address] [address] Social History Tobacco Use Types Packs/Day Years [...]
--- OUTSIDE RECORDS SUMMARY | 2024-10-10 09:42 | XMS_ITS | Encounter Summary ---
Author Organization [facility] [facility] Address [address] [place] [address] 7 [place] [address] Care Team Providers Care Blood Bank Custodian Name Role Phone Shirley Taylor Primary Care Provider [phone] Encounter Details Date Type Department Care Team (Latest Contact Info) Description 11/28/2021 Abstract [facility] Dental, Provider, DDS Social History Tobacco Use Types Packs/Day Years Used Date Smoking Tobacco: Never Assessed Comments Unknown Sex and Gender Information Value Date Recorded Sex Assigned at Female 03/31/2022 10:16 AM EDT Legal Sex Female 10:16 AM EDT Gender Identity Female 03/31/2022 10:16 AM EDT Sexual Orientation Straight 03/31/2022 10 :16 AM EDT documented as of this encounter Plan of Treatment Upcoming Encounters Date Type Department Care Team (Late st Contact Info) Description 11/16/2024 9:30 AM EDT Office Visit [facility] [address] [place] [address] Michael Biswas DDS [address] [place] [address] 12/29/2024 10:00 AM EDT Office Visit [facility] [address] [place] [address] Shirley Taylor ANP [address] [place] [address] documented as of this encounter Visit Diagnoses Not on filedocumented in this encounter Care Teams Blood Bank Custodian Relationship Specialty Start Date End Date Shirley Taylor ANP [address] [place] [address] PCP - General Family Medicine 04/13/20 documented as of this encounter
--- OUTSIDE RECORDS SUMMARY | 2024-10-10 09:42 | XMS_ITS | Clinical Summary ---
Author Organization [facility] Address [address] [place] [address] Phone Care Team Providers Care Electrophysiology Technician Name Role Phone Unavailable Primary Care Provider [...]
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
== END 2024-10-10 10:15 | disposition home or self-care (01) ==
LOC: HO.HWS 09:27
PROVIDERS: PCP Nurse Practitioner Primary Care; Visit Provider Obstetrics & Gynecology
DX: Z01.419 Encounter for gynecological examination (general) (routine) without abnormal findings (principal); N76.0 Acute vaginitis
CPT/HCPCS: 99395; 99459

== ENCOUNTER 2024-12-12 11:40 | Outpatient (REF) | payer MEDICAID, SELFPAY ==
--- OUTSIDE RECORDS SUMMARY | 2024-12-12 12:49 | XMS_ITS | Clinical Summary ---
Author Organization [facility] Address [address] [place] [address] Phone Care Team Providers Care Rn Document Improvement Specialist Name Role Phone Unavailable Primary Care [...] of 2 - 13+ 2-dose series) 2006 COVID-19 Vaccine ( - season) 2024 Influenza Vaccines (#1) 2024 HIB Vaccines Completed 02/28/1995, 06/03, 02/28/1994, [...]
--- OUTSIDE RECORDS SUMMARY | 2024-12-12 12:49 | XMS_ITS | Clinical Summary ---
Author Organization [facility] Address [address] [place] [address] Care Team Providers Care Hall Clerk Name Role Phone Unavailable Primary Care Provider [...] (2023-2 5 season) 2024 Influenza Vaccine (#1) 2025 HIB Vaccines Aged Out No longer [...] 5 Years) and At-Risk Patients (6 to 49 Years) Aged Out No longer eligible b ased on patient's age to complete this topic RSV Immunization Patients Un michel 20 months Aged Out No longer eligible b ased on patient's age to complete this topic Varicella Vaccines Aged Out No longer eligible based on patient's age to complete this topic
--- OUTSIDE RECORDS SUMMARY | 2024-12-12 12:49 | XMS_ITS | Encounter Summary ---
Author Organization [employer] Address [address] [facility] 7 [place] [address] Care Team Providers Care Call Center Assistant Name Role Phone Shirley Taylor Primary Care Provider [phone] Reason for Visit * Reason Onset Date Comments Nurse Triage 09/26/2024 Encounter Details Date Type Department Care Team ([facility] st Contact Info) Description 09/26/2024 Telephone [facility]INE [address] [place], [place] [phone] Shirley Taylor ANP [address] [place] [address] Nurse Triage Social History Tobacco Use Types [...] take. Pt is advised to come to [facility] today open till 8pm to be seen [...] Care Team (Late st Contact Info) Description 12/21/2024 10:30 AM EDT Office Visit [facility] ADULT DENTAL [address] [place] [address] Michael Biswas DDS [address] [place] [address] 12/29/2024 10:00 AM EDT Office Visit [facility] MEDICINE [address] [place] [address] Shirley Taylor ANP [address] [place] [address] documented as of this encounter Visit Diagnoses Not on filedocumented in this encounter Additional Health Concerns Assessment Noted Time PHQ-9 Depression Total Score: 6 11/17/19 24 9:40 AM EDT documented as of this encounter Care Teams Call Center Assistant Relationship Specialty Start Date End Date Shirley Taylor ANP [address] [place] [address] PCP - General Family Medicine 04/13/20 documented as of this encounter
[2024-12-12 14:23] LABS: Alanine Aminotransferase 16 U/L (0-31); Albumin Level 4.5 g/dL (3.5-5.0); Alkaline Phosphatase 59 U/L (39-117); Aspartate Amino Transferase 21 U/L (5-31); Total Protein 7.3 g/dL (6.5-8.0)
[2024-12-13 08:13] LABS: HBS Num1 5.65 mIU/mL (0-7.99); HBc Num1 0.06 S/CO (0.00-0.79); HBsAGNum1 0.32 S/CO (0.00-0.99); HIV Num 1 0.05 S/CO (0.00-0.99); Hepatitis B Surface Antigen Negative (Negative); ~Hepatitis B Surface Antibody NONREACTIVE (Nonreactive)
[2024-12-13 15:49] LABS: HIV RNA PCR Qn Copies NOT DETECTED copies/mL (NOT DETECTED); HIV RNA PCR Qn Log Copies NOT DETECTED (NOT DETECTED)
== END 2024-12-12 11:41 | disposition home or self-care (01) ==
LOC: HO.HHCL 11:40
PROVIDERS: PCP Nurse Practitioner Primary Care; Visit Provider Nurse Practitioner Primary Care
DX: Z11.59 Encounter for screening for other viral diseases (principal); Z29.81 Encounter for HIV pre-exposure prophylaxis; Z79.899 Other long term (current) drug therapy
CPT/HCPCS: 36415; 80076; 86704; 86706; 87340; 87389; 87536

== ENCOUNTER 2024-12-15 13:53 | Outpatient (REF) | payer MEDICAID, SELFPAY ==
[2024-12-15 19:32] LABS: Bacterial Vaginosis PCR POSITIVE (Negative); Candida Group PCR DETECTED (Not Detect); Candida glab krusei PCR NOT DETECTED (Not Detect); Trichomonas vaginalis PCR NOT DETECTED (Not Detect)
[2024-12-15 20:21] LABS: CT PCR NOT DETECTED (Not Detect.); NG PCR NOT DETECTED (Not Detect.)
== END 2024-12-15 13:54 | disposition home or self-care (01) ==
LOC: HO.LNP 13:53
PROVIDERS: PCP Nurse Practitioner Primary Care; Visit Provider Obstetrics & Gynecology
DX: N76.0 Acute vaginitis (principal); B96.89 Other specified bacterial agents as the cause of diseases classified elsewhere; N93.9 Abnormal uterine and vaginal bleeding, unspecified; N94.9 Unspecified condition associated with female genital organs and menstrual cycle
CPT/HCPCS: 81515; 87491; 87591; 99212

== ENCOUNTER 2024-12-15 13:53 | Outpatient (AMB) | payer MEDICAID, SELFPAY ==
--- NOTE | 2024-12-15 13:57 | A.OFFVIS_ITS ---
Intake Visit Reasons: vaginal lump Intake Note: Per patient noticed a lump inside of vagina, not to painful but some discomfort and spotting. Last menstrual was end of October into beginning of November and has still been spotting. Contract Sheltered Workshop Supervisor: Contract Sheltered Workshop Supervisor Present (Lashay) Accompanied by: Self / Same As Patient Allergies shellfish derived (SHELLFISH DERIVED) Allergy (Severe, Verified 10/10/24 09:43) SWELLING cat dander (CATS) Allergy (Unknown, Verified 10/10/24 09:43) UNKNOWN crab Allergy (Unknown, Verified 10/10/24 09:43) UNKNOWN DUST Allergy (Unknown, Uncoded 10/10/24 09:43) RASH PEANUT BUTTER Allergy (Unknown, Uncoded 10/10/24 09:43) UNKNOWN Peanut Butter Flavor Allergy (Unknown, Uncoded 10/10/24 09:43) Swelling peanuts Allergy (Unknown, Uncoded 10/10/24 09:43) swollen pollen Allergy (Unknown, Uncoded 10/10/24 09:43) rash shellfish Allergy (Unknown, Uncoded 10/10/24 09:43) Swelling nail polsh remover Adverse Reaction (Intermediate, Uncoded 10/10/24 09:43) Rash HPI Comments Details: Presenting complaining of irregular menstrual cycles over the last few months in addition to vulvovaginal irritation associated with vaginal discharge with no foul odor. The patient has felt a lump in the left vaginal wall over the last week or so Last Pap smear in 10/22 was negative [facility] Medical History Lumbar radiculopathy Dental caries Fracture of dental baptism Periodontal disease Obstructive sleep apnea syndrome History of fracture of nasal bone Carpal tunnel syndrome Tension type headache Obesity Thyromegaly Low back pain Asthma Depression Surgical History History of nasal surgery Hx of tonsillectomy [place] teeth removed Family History Mother Bipolar 1 disorder Heart disease HTN (hypertension) Diabetes Father Diabetes Dementia Alcoholism Social History Household Members Other:: daughter Housing: Condominium Alcohol intake: never Patient Tobacco Use Status: Current everyday Tobacco user Cigarettes Per Day: 2 Current occupational status: unemployed Sexual orientation: Straight/Heterosexual Gender identity: Female Female Reproductive History Menstrual Age of Menarche: 10 Review of Systems Const All systems reviewed & are unremarkable except as noted in HPI and below Physical Exam General: Yes no CVA tenderness External Female Exam: normal external appearance and normal appearance of the urethra Speculum Exam - Vagina: normal appearance of the vagina, normal palpation, lesion (Left vaginal up wall 0.5 cm subcuticular lump possible lymph node enlargeme) and no masses Speculum Exam - Cervix: normal appearance of the cervix, normal palpation, no lesions, no masses and nontender Bimanual exam- vagina & uterus: normal bimanual exam, normal palpation, uterine size normal, normal palpation, uterine shape normal, No Cervical tenderness present and non-tender Bimanual Exam- Adnexa, other: normal adnexae Back/Spine/Pelvis Back: no CVA tenderness Assessment & Plan Assessment & Plan (1) Abnormal uterine bleeding: Code(s): N93.9 - Abnormal uterine and vaginal bleeding, unspecified Category: Medical Plan: GC and chlamydia taken CBC, TSH, HCG, and pelvic ultrasound ordered. Discussed with the patient the different causes of abnormal bleeding including thyroid disorders, uterine and ovarian pathology and other potential causes. Discussed with the patient the work up including CBC (to r/o anemia), TSH, pelvic Ultrasound. All questions answered and the patient verbalized understanding. Instructed the patient to schedule an appointment for an endometrial biopsy in 2 weeks. (2) Vulvovaginitis: Code(s): N76.0 - Acute vaginitis Category: Medical Plan: GC/CT, Bacterial Vaginosis panel taken, Terazol 0.8% q.h.s. for 3 days was sent to the patient's pharmacy. The patient was instructed to call if symptoms don't improve in 48 hours. (3) Vaginal lump: Code(s): N94.9 - Unspecified condition associated with female genital organs and menstrual cycle Category: Medical Plan: Discussed with the patient the finding on pelvic exam left upper vaginal wall 0.5 cm lump underneath the mucosa possible if node enlargement. Will schedule repeat pelvic exam in 2 weeks if persistent will treat accordingly. All questions answered, the patient verbalized understanding Orders: Orders HCG Quantitative Today N93.9 - Abnormal uterine and vaginal bleeding, unspecified TSH reflex Free T4 Today N93.9 - Abnormal uterine and vaginal bleeding, unspecified Complete Blood Count no Diff Today N93.9 - Abnormal uterine and vaginal bleeding, unspecified US pelvic and transvaginal Today N93.9 - Abnormal uterine and vaginal bleeding, unspecified Medications: New terconazole 0.8% 1 appful vaginal BEDTIME 20 grams 0RF 3 days Coding Level of Care Code Est Pt Level 3 (86224) Diagnoses Abnormal uterine bleeding N93.9 Vulvovaginitis N76.0 Vaginal lump N94.9
--- OUTSIDE RECORDS SUMMARY | 2024-12-15 14:37 | XMS_ITS | Clinical Summary ---
Author Organization [facility] Address [address] [place] [address] Phone Care Team Providers Care Electrician Apprentice Name Role Phone Unavailable Primary Care [...]
--- OUTSIDE RECORDS SUMMARY | 2024-12-15 14:37 | XMS_ITS | Encounter Summary ---
Author Organization [employer] Address [address] [facility] 7 [place] [address] Care Team Providers Care Area Manager Name Role Phone Shirley Taylor Primary Care Provider [phone] Reason for Visit * Reason Onset Date Comments Nurse Triage 09/26/2024 Encounter Details Date Type Department Care Team ([facility] st Contact Info) Description 09/26/2024 Telephone [facility] MEDICINE [address] [place], [place] [phone] Shirley Taylor ANP [address] [place] [address] Nurse Triage Social History Tobacco Use Types [...] take. Pt is advised to come to [facility] today open till 8pm to be [...] Description 12/21/2024 10:30 AM EDT Office Visit [facility] ADULT DENTAL [address] [place] [address] Michael Bisaws DDS [address] [place] [address] 12/29/2024 10:00 AM EDT Office Visit [facility] MEDICINE [address] [place] [address] Shirley Taylor ANP [address] [place] [address] documented as of this encounter Visit Diagnoses Not on filedocumented in this encounter Additional Health Concerns Assessment Noted Time PHQ-9 Depression Total Score: 6 11/17/19 24 9:40 AM EDT documented as of this encounter Care Teams Area Manager Relationship Specialty Start Date End Date Shirley Taylor ANP [address] [place] [address] PCP - General Family Medicine 04/13/20 documented as of this encounter
--- OUTSIDE RECORDS SUMMARY | 2024-12-15 14:37 | XMS_ITS | Clinical Summary ---
Author Organization [facility] Address [address] [place] [address] Care Team Providers Care Tie Cutter Name Role Phone Unavailable Primary Care Provider [...]
== END 2024-12-15 14:31 | disposition home or self-care (01) ==
LOC: HO.HWS 13:53
PROVIDERS: PCP Nurse Practitioner Primary Care; Visit Provider Obstetrics & Gynecology
DX: N93.9 Abnormal uterine and vaginal bleeding, unspecified (principal); N76.0 Acute vaginitis; N94.9 Unspecified condition associated with female genital organs and menstrual cycle
CPT/HCPCS: 99213

== ENCOUNTER 2025-01-24 13:48 | Outpatient (REF) | payer MEDICAID, SELFPAY ==
--- NOTE | ~2025-01-24 | US_ITS ---
EXAMINATION: US PELVIS CLINICAL INFORMATION: N93.9 - Abnormal uterine and vaginal bleeding, unspecified COMPARISON: March 16, 2024 TECHNIQUE: Ultrasound of the pelvis is performed using both transabdominal and transvaginal transducers along with Doppler. Transvaginal imaging is performed due to inadequate visualization transabdominally. FINDINGS: Uterus: The uterus is anteverted and measures 8.2 x 4.1 x 4.7 cm. The double wall endometrial thickness is 6 mm. The uterus is smooth in contour and has normal myometrial echogenicity. No visible fibroid. Adnexa: Both ovaries are visualized. There is normal color flow to the adnexa. There is no ovarian torsion. There is no pelvic ascites or fluid collection. Right ovary measures 2.6 x 1.8 x 1.9 cm. There is a dominant follicle. Left ovary measures 2.3 x 2.2 x 1.6 cm. US/US pelvic and transvaginal IMPRESSION: Unremarkable pelvic ultrasound Electronically signed by: Joseph Acosta MD 01/24/2025 03:06 PM EDT
--- OUTSIDE RECORDS SUMMARY | 2025-01-24 14:44 | XMS_ITS | Encounter Summary ---
Author Organization [facility] Address [address] [place] [address] Phone Care Team Providers Care Medication Aid Name Role Phone Unavailable Primary Care Provider Unavailabl e Encounter Details Date Type Department Care Team (Late st Contact Info) Description 01/15/2017 Conversion Encounter [facility] - [address] [address] Social History Tobacco Use Types Packs/Day Years [...]
--- OUTSIDE RECORDS SUMMARY | 2025-01-24 14:44 | XMS_ITS | Encounter Summary ---
Author Organization [employer] Address [address] [facility] [address]t [place] [address] Care Team Providers Care Vocational Rehab Consultant Name Role Phone Taylor Shirley KU Primary Care Provider [phone] Encounter Details Date Type Department Care Team ([facility] st Contact Info) Description 11/15/2024 Orders Only [facility] MEDICINE [address] [place] [address] Rocio Olguin, KAEL [address] [place] [address] Social History Tobacco Use Types Packs/Day Years [...] documented as of this encounter Care Teams Vocational Rehab Consultant Relationship Specialty Start Date End Date Shirley Taylor ANP [address] [place] [address] PCP - General Family Medicine 04/13/20 documented as of this encounter
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
--- OUTSIDE RECORDS SUMMARY | 2025-01-24 14:44 | XMS_ITS | Encounter Summary ---
Author Organization [facility] Address [address] [place] [address] 7 [place] [address] Care Team Providers Care Merchandise Flow Team Leader Name Role Phone Shirley Taylor Primary Care Provider [phone] Encounter Details Date Type Department Care Team (Latest Contact Info) Description 11/28/2021 Abstract [facility] CONVERSIONS Dental, Provider, DDS Social History Tobacco [...] on filedocumented in this encounter Care Teams Merchandise Flow Team Leader Relationship Specialty Start Date End Date Shirley Taylor ANP [address] [place] [phone] PCP - General Family Medicine 04/13/20 documented as of this encounter
--- OUTSIDE RECORDS SUMMARY | 2025-01-24 14:44 | XMS_ITS | Encounter Summary ---
Author Organization [employer] Address [address] [facility] 7 [place] [address] Care Team Providers Care Side Seam Tender Name Role Phone Shirley Taylor Primary Care Provider [phone] Reason for Visit * Reason Onset Date Comments Nurse Triage 09/26/2024 Encounter Details Date Type Department Care Team ([facility] st Contact Info) Description 09/26/2024 Telephone [facility] MEDICINE [address] [place], [place] [phone] Shirley Taylor ANP [address] [place] [address] Nurse Triage Social History Tobacco Use Types [...] take. Pt is advised to come to [facility] today open till 8pm to be [...] documented as of this encounter Care Teams Side Seam Tender Relationship Specialty Start Date End Date Shirley Taylor ANP [address] [place] [address] PCP - General Family Medicine 04/13/20 documented as of this encounter
--- OUTSIDE RECORDS SUMMARY | 2025-01-24 14:44 | XMS_ITS | Clinical Summary ---
Author Organization [facility] Address [address] [place] [phone] Phone Care Team Providers Care Supervisor Waterproofing Name Role Phone Unavailable Primary Care Provider [...] of 2 - 13+ 2-dose series) 2006 HPV Vaccines (1 - 3-dose SCDM series) 2020 COVID-19 Vaccine ( season) 2024 Influenza Vaccines (#1) 2024 HIB Vaccines Completed 02/28/1995, 06/03, 02/28/1994, Additional history exists MMR Vaccines Completed 02/28/1995 Hepatitis B Vaccines Completed 09/29/1995, 02/28/1994, 1993 Hepatitis A Vaccines Aged Out No long [...]
--- OUTSIDE RECORDS SUMMARY | 2025-01-24 14:44 | XMS_ITS | Clinical Summary ---
Author Organization [facility] Address [address] [place] [address] Care Team Providers Care Manager Environmental Affairs Name Role Phone Unavailable Primary Care Provider [...] Vaccine ( - 2023-2 5 season) 2024 Depression Screening 06/01/2024 Influenza Vaccine (#1) 2025 HIB Vaccines Aged [...]
--- OUTSIDE RECORDS SUMMARY | 2025-01-24 14:44 | XMS_ITS | Encounter Summary ---
Author Organization [employer] Address [address] [place] [address] 7 [place] [address] Care Team Providers Care Tool Setter Apprentice Name Role Phone Claudia Shirley KU Primary Care Provider [phone] Encounter Details Date Type Department Care Team ([facility] st Contact Info) Description 12/15/2024 Results Follow-Up [facility] MEDICINE [address] [place] [address] Sue Mccarthy MD [address] [place] [address] Bacterial Vaginosis, Chlamydia/N. Gonorrhoeae RNA, TMA, Urogenitial Social History Tobacco Use Types Packs/Day Years [...] as of this encounter Miscellaneous Notes * Result Encounter Note - Sue Hickey MD - 12/15/2024 8:54 PM EDT Labs done by outside provider documented in this encounter Plan of Treatment Not on file documented as of this encounter Visit Diagnoses Not on filedocumented in this encounter Additional Health Concerns Assessment Noted Time PHQ-9 Depression Total Score: 6 11/17/19 24 9:40 AM EDT documented as of this encounter Care Teams Tool Setter Apprentice Relationship Specialty Start Date End Date Shirley Taylor ANP [address] [place] [address] PCP - General Family Medicine 04/13/20 documented as of this encounter
--- OUTSIDE RECORDS SUMMARY | 2025-01-24 14:44 | XMS_ITS | Encounter Summary ---
Author Organization [employer] Address [address] [facility] 7t [place] [address] Care Team Providers Care Temperer Name Role Phone Shirley Taylor Primary Care Provider [phone] Encounter Details Date Type Department Care Team ([facility] st Contact Info) Description 12/19/2024 Results Follow-Up [facility] MEDICINE 230 [place] [address] Shirley Taylor, ANP [address] [place] [address] Hepatitis B Core Antibody, Total, Hepatitis B surface antigen, EIA, Hepatitis B Surface Antibody, Qualitative, Additional followed-up results: 2 Social History Tobacco Use Types Packs/Day Years [...] documented as of this encounter Care Teams Temperer Relationship Specialty Start Date End Date Shirley Taylor ANP [address] [place] [address] PCP - General Family Medicine 04/13/20 documented as of this encounter
== END 2025-01-24 13:49 | disposition home or self-care (01) ==
LOC: HO.US 13:48
PROVIDERS: PCP Nurse Practitioner Primary Care; Visit Provider Obstetrics & Gynecology
DX: N93.9 Abnormal uterine and vaginal bleeding, unspecified (principal)
CPT/HCPCS: 76830; 76856

== ENCOUNTER → 2025-01-24 13:50 | Outpatient (BNV) | payer MEDICAID, SELFPAY | PROVIDERS: PCP Nurse Practitioner Primary Care; Visit Provider Radiology Diagnostic Radiology | DX: N93.9 Abnormal uterine and vaginal bleeding, unspecified (principal) | CPT/HCPCS: 76830; 76856 ==

== ENCOUNTER 2025-02-14 11:48 | Outpatient (AMB) | payer MEDICAID, SELFPAY ==
--- NOTE | 2025-02-14 12:02 | A.OFFVIS_ITS ---
Vital Signs 02/14/25 12:13 Height 5 ft Weight 213 lb BMI 41.6 Intake Visit Reasons: Ultrasound follow up/repeat pelvic exam Sports Administrator Required: No Information Interpreted: non-clinical & clinical Washing Machine Loader And Puller: Washing Machine Loader And Puller Present Allergies shellfish derived (SHELLFISH DERIVED) Allergy (Severe, Verified 02/14/25 12:14) SWELLING cat dander (CATS) Allergy (Unknown, Verified 02/14/25 12:14) UNKNOWN crab Allergy (Unknown, Verified 02/14/25 12:14) UNKNOWN DUST Allergy (Unknown, Uncoded 02/14/25 12:14) RASH PEANUT BUTTER Allergy (Unknown, Uncoded 02/14/25 12:14) UNKNOWN Peanut Butter Flavor Allergy (Unknown, Uncoded 02/14/25 12:14) Swelling peanuts Allergy (Unknown, Uncoded 02/14/25 12:14) swollen pollen Allergy (Unknown, Uncoded 02/14/25 12:14) rash shellfish Allergy (Unknown, Uncoded 02/14/25 12:14) Swelling nail polsh remover Adverse Reaction (Intermediate, Uncoded 02/14/25 12:14) Rash HPI Comments Details: Presenting for follow-up regarding AUB workup and repeat pelvic exam for left vaginal wall lump H&H on 02/17 at 10.8/34.6 HCG less than 2 GC/CT negative 10/22 Pap smear negative Pelvic ultrasound recently done unremarkable TSH not done yet COUNTS INCLUDE 234 BEDS AT THE [facility] Medical History Lumbar radiculopathy Dental caries Fracture of dental advent Periodontal disease Obstructive sleep apnea syndrome History of fracture of nasal bone Carpal tunnel syndrome Tension type headache Obesity Thyromegaly Low back pain Asthma Depression Surgical History History of nasal surgery Hx of tonsillectomy [place] teeth removed Family History Mother Bipolar 1 disorder Heart disease HTN (hypertension) Diabetes Father Diabetes Dementia Alcoholism Social History Household Members Other:: daughter Housing: Condominium Alcohol intake: never Patient Tobacco Use Status: Current everyday Tobacco user Cigarettes Per Day: 2 Current occupational status: unemployed Sexual orientation: Straight/Heterosexual Gender identity: Female Female Reproductive History Menstrual Age of Menarche: 10 Review of Systems Const All systems reviewed & are unremarkable except as noted in HPI and below Physical Exam Vital Signs: BMI result Body Mass Index 41.6 General: Yes no CVA tenderness External Female Exam: normal external appearance and normal appearance of the urethra Speculum Exam - Vagina: normal appearance of the vagina (No evidence of vaginal lump), normal palpation, no lesions and no masses Speculum Exam - Cervix: normal appearance of the cervix, normal palpation, no lesions, no masses and nontender Bimanual exam- vagina & uterus: normal bimanual exam, normal palpation, uterine size normal, normal palpation, uterine shape normal, No Cervical tenderness present and non-tender Bimanual Exam- Adnexa, other: normal adnexae Back/Spine/Pelvis Back: no CVA tenderness Assessment & Plan Assessment & Plan (1) Abnormal uterine bleeding: Code(s): N93.9 - Abnormal uterine and vaginal bleeding, unspecified Category: Medical Plan: TSH not done, recommended the patient to go to the lab for a TSH blood draw. Discussed with the patient the results of the work up done and options of treatment including Lysteda, control pills, Mirena IUD, endometrial ablation and hysterectomy. All pros, cons, risks and benefits if each option was discussed with the patient and the patient decided to go ahead with Mirena IUD so a more detailed discussion about it was conducted including mechanism of action, risks (uterine perforation, infection, injury to bladder, bowel, displacement, and others) benefits (hypo menorrhea, amenorrhea, ...). GC/CT were taken recently and they were negative and the patient was instructed to schedule Mirena IUD insertion on day 1-5 of next cycle . All questions answered, the patient verbalized understanding (2) Vaginal lump: Comment: Results Code(s): N94.9 - Unspecified condition associated with female genital organs and menstrual cycle Category: Medical Plan: Explained to the patient the finding on pelvic exam showing no evidence of vaginal lump, the patient was reassured Coding Level of Care Code Est Pt Level 3 (56310) Diagnoses Abnormal uterine bleeding N93.9 Vaginal lump N94.9
[2025-02-14 12:13] VITALS: BMI 41.6
--- OUTSIDE RECORDS SUMMARY | 2025-02-14 16:00 | XMS_ITS | Encounter Summary ---
Author Organization [employer] Address [address] [facility] 7t [place] [address] Care Team Providers Care A&P Mechanic Name Role Phone Claudia Shirley KU Primary Care Provider [phone] Encounter Details Date Type Department Care Team (Late st Contact Info) Description 02/14/2025 Orders Only GENERIC EXTERNAL DATA DEPARTMENT Provider, Generic External Data Social History Tobacco Use Types Packs/Day Years [...] Care Team (Late st Contact Info) Description 04/20/2025 10:00 AM EST Office Visit [facility] MEDICINE [address] [place], [place] [phone] Shirley Taylor, ANP [address] [place], [place] [phone] documented as of this encounter Procedures Procedure Name Priority Date/Time Associated Diagnosis Comments TSH W/REFLEX TO FT4 Routine 02/14/2025 1 2:40 PM EDT CBC Routine 02/14/2025 12:40 PM EDT HCG, TOTAL, QN Routine 02/14/2025 12:40 PM EDT documented in this encounter Results * hCG, Total, Quantitative (02/14/2025 12:40 PM EDT) HCG Quantitative <2 mIU/mL [facility] Comment:Weeks post LMP Appro ximate hCG(Last Menstrual Period) Range (mIU/ml)3 - 4 weeks 9 - 1304 - 5 weeks 75 - 2,6005 - 6 weeks 850 - 20,8006 - 7 weeks 4000 - 100,2007 - 12 weeks 11,500 - 289,05499 - 16 weeks 18,300 - 137,47475 - 29 weeks (2nd trimester) 1,400 - 53,29295 - 41 weeks (3rd trimester) 940 - 60,000The Murphy B- hCG assay is used for the early detection ofpregnancy; it cannot be used to diagnose any conditionunrelated to . If a B-hCG level is not supportedby the clinical evidence, results should be confirmed by analternative method (qualitative urine hCG, for example). 02/14/2025 12:4 0 PM EDT 02/14/2025 12:40 PM EDT Generic External Data Provider LAB BLOOD ORDERAB LES Final Result Performing Organization Address [facility] Co de Phone Number [facility] [address] [place] [phone] * TSH with Reflex to Free T4 (02/14/2025 12:40 PM EDT) Pathologist [facility] TSH reflex Free T4 0.86 0.32 - 4.0 uIU/mL [facility] 02/14/2025 12:4 0 PM EDT 02/14/2025 12:40 PM EDT Generic External Data Provider LAB BLOOD ORDERAB LES Final Result Performing Organization Address [facility] Co de Phone Number [facility] [address] [place] [phone] * (ABNORMAL) CBC (02/14/2025 12:40 PM EDT) White Blood Count 8.8 4.8 - 10.8 X10*3/uL [facility] Red Blood Count 4.20 4.20 - 5.50 X10*6/uL [facility] Hemoglobin 9.7(L) 12.0 - 16.0 g/dl [facility] Hematocrit 32.2(L) 37.0 - 47.0 % [facility] Mean Corpuscular Volume 76.7(L) 80.0 - 98.0 fL [facility] Mean Corpuscular Hemoglobin 23.1(L) 27.0 - 33.0 pg [facility] Mean Corpuscular HGB Conc 30.1(L) 31.0 - 35.0 g/dl [facility] Red Cell Distribution Width 16.5(H) 11.0 - 16.0 % [facility] Platelet Count 461(H) 160 - 400 X10*3/uL [facility] Mean Platelet Volume 8.6(L) 9.4 - 12.3 fL [facility] NRBC Pct Auto 0.0 0.0 - 0.2 /100WBC [facility] NRBC Abs Auto 0.000 0.0 - 0.012 X10*3/uL [facility] 02/14/2025 12:4 0 PM EDT 02/14/2025 12:40 PM EDT us Generic External Data Provider LAB BLOOD ORDERAB LES Final Result Performing Organization Address City/State/[facility] Co de Phone Number [facility] [address] [place] [phone] documented in this encounter Visit Diagnoses Not on filedocumented in this encounter Additional Health Concerns Assessment Noted Time PHQ-9 Depression Total Score: 6 11/17/19 24 9:40 AM EDT documented as of this encounter Care Teams A&P Mechanic Relationship Specialty Start Date End Date Shirley Taylor ANP [address] [place] [address] PCP - General Family Medicine 04/13/20 documented as of this encounter
--- OUTSIDE RECORDS SUMMARY | 2025-02-14 16:00 | XMS_ITS | Clinical Summary ---
Author Organization [facility] Address [address] [place] [address] Care Team Providers Care Public Administration Professor Name Role Phone Unavailable Primary Care Provider [...] Cervical Cancer Screening: P ap Smear 2014 Depression Screening 06/01/2024 COVID-19 Vaccine ( - 2023-2 5 season) 2025 Influenza Vaccine (#1) 2025 HIB Vaccines Aged [...]
--- OUTSIDE RECORDS SUMMARY | 2025-02-14 16:00 | XMS_ITS | Encounter Summary ---
Author Organization [employer] Address [address] [facility] 7 [place] [address] Care Team Providers Care Marketing Producer Name Role Phone Shirley Taylor Primary Care Provider [phone] Reason for Visit * Reason Onset Date Comments Nurse Triage 09/26/2024 Encounter Details Date Type Department Care Team ([facility] st Contact Info) Description 09/26/2024 Telephone [facility] MEDICINE [address] [place], [place] [phone] Shirley Taylor ANP [address] [place] [address] Nurse Triage Social History Tobacco Use Types [...] take. Pt is advised to come to [facility] today open till 8pm to be [...] Description 04/20/2025 10:00 AM EST Office Visit [facility] MEDICINE [address] [place] [address] Shirley Taylor ANP [address] [place] [address] documented as of this encounter Visit Diagnoses Not on filedocumented in this encounter Additional Health Concerns Assessment Noted Time PHQ-9 Depression Total Score: 6 11/17/19 24 9:40 AM EDT documented as of this encounter Care Teams Marketing Producer Relationship Specialty Start Date End Date Shirley Taylor ANP [address] [place] [address] PCP - General Family Medicine 04/13/20 documented as of this encounter
--- OUTSIDE RECORDS SUMMARY | 2025-02-14 16:00 | XMS_ITS | Encounter Summary ---
Author Organization [employer] Address [address] [facility] 7 [place] [address] Care Team Providers Care Legal Billing Specialist Name Role Phone Shirley Taylor Primary Care Provider [phone] Reason for Visit * Reason Onset Date Comments nov recall 02/13/2025 Encounter Details Date Type Department Care Team ([facility] st Contact Info) Description 02/13/2025 Telephone [facility] MEDICINE [address] [place], [place] [phone] Shirley Taylor ANP [address] [place] [address] nov recall Social History Tobacco Use Types Packs/Day Years [...] encounter Miscellaneous Notes * Telephone Encounter - Alix Irvin MA - 02/13/2025 3:17 PM EDT Telephone call to patient to schedule the following recall: Visit type: Follow up Appointment notes: anxiety, sleep, back pain Patient agree to appointment on 04/20/2025 at 10:00 AM with Claudia. documented in this encounter Plan of Treatment Upcoming Encounters Date Type Department Care Team (Late st Contact Info) Description 04/20/2025 10:00 AM EST Office Visit [facility] MEDICINE [address] [place] [address] Shirley Taylor ANP [address] [place] [address] documented as of this encounter Visit Diagnoses Not on filedocumented in this encounter Additional Health Concerns Assessment Noted Time PHQ-9 Depression Total Score: 6 11/17/19 24 9:40 AM EDT documented as of this encounter Care Teams Legal Billing Specialist Relationship Specialty Start Date End Date Shirley Taylor ANP [address] [place] [address] PCP - General Family Medicine 04/13/20 documented as of this encounter
--- OUTSIDE RECORDS SUMMARY | 2025-02-14 16:00 | XMS_ITS | Encounter Summary ---
Author Organization [employer] Address [address] [facility] 7t [place] [address] Care Team Providers Care Elevator Examiner And Adjuster Name Role Phone Taylor Shirley KU Primary Care Provider [phone] Encounter Details Date Type Department Care Team ([facility] st Contact Info) Description 11/15/2024 Orders Only [facility] MEDICINE [address] [place] [address] Rocio Olguin, RN [address] [place] [address] Social History Tobacco Use Types Packs/Day Years [...] Description 04/20/2025 10:00 AM EST Office Visit [facility] MEDICINE [address] [place] [address] Shirley Taylor ANP [address] [place] [address] documented as of this encounter Visit Diagnoses Not on filedocumented in this encounter Additional Health Concerns Assessment Noted Time PHQ-9 Depression Total Score: 6 11/17/19 24 9:40 AM EDT documented as of this encounter Care Teams Elevator Examiner And Adjuster Relationship Specialty Start Date End Date Shirley Taylor ANP [address] [place] [phone] PCP - General Family Medicine 04/13/20 documented as of this encounter
--- OUTSIDE RECORDS SUMMARY | 2025-02-14 16:01 | XMS_ITS | Encounter Summary ---
Author Organization [employer] Address [address] [facility] 7t [place] [address] Care Team Providers Care Logistics Clerk Name Role Phone Shirley Taylor Primary Care Provider [phone] Encounter Details Date Type Department Care Team ([facility] st Contact Info) Description 12/19/2024 Results Follow-Up [facility] MEDICINE [address] [place] [address] Shirley Taylor, ANP [address] [place] [address] Hepatitis B Core Antibody, Total, Hepatitis B [...] Description 04/20/2025 10:00 AM EST Office Visit [facility] MEDICINE [address] [place] [address] Shirley Taylor ANP [address] [place] [phone] documented as of this encounter Visit Diagnoses Not on filedocumented in this encounter Additional Health Concerns Assessment Noted Time PHQ-9 Depression Total Score: 6 11/17/19 24 9:40 AM EDT documented as of this encounter Care Teams Logistics Clerk Relationship Specialty Start Date End Date Shirley Taylor ANP [address] [place] [address] PCP - General Family Medicine 04/13/20 documented as of this encounter
--- OUTSIDE RECORDS SUMMARY | 2025-02-14 16:01 | XMS_ITS | Encounter Summary ---
Author Organization [employer] Address [address] [place] [address] 7 [place] [address] Care Team Providers Care Catering Coordinator Name Role Phone Claudia Shirley KU Primary Care Provider [phone] Encounter Details Date Type Department Care Team ([facility] st Contact Info) Description 12/15/2024 Results Follow-Up [facility] MEDICINE [address] [place] [address] Sue Mccarthy MD [address] [place] [address] Bacterial Vaginosis, Chlamydia/N. Gonorrhoeae RNA, TMA, Urogenitial [...] Description 04/20/2025 10:00 AM EST Office Visit [facility] MEDICINE [address] [place] [address] Shirley Taylor ANP [address] [place] [address] documented as of this encounter Visit Diagnoses Not on filedocumented in this encounter Additional Health Concerns Assessment Noted Time PHQ-9 Depression Total Score: 6 11/17/19 24 9:40 AM EDT documented as of this encounter Care Teams Catering Coordinator Relationship Specialty Start Date End Date Shirley Taylor ANP [address] [place] [address] PCP - General Family Medicine 04/13/20 documented as of this encounter
--- OUTSIDE RECORDS SUMMARY | 2025-02-14 16:01 | XMS_ITS | Encounter Summary ---
Author Organization [facility] Address [address] [place] [address] Phone Care Team Providers Care Needle Leader Name Role Phone Unavailable Primary Care Provider Unavailabl e Encounter Details Date Type Department Care Team ([facility] st Contact Info) Description 01/15/2017 Conversion Encounter [facility] - [address] [address] Social History Tobacco Use Types Packs/Day Years [...]
--- OUTSIDE RECORDS SUMMARY | 2025-02-14 16:01 | XMS_ITS | Clinical Summary ---
Author Organization [employer] Address [address] [place] [address] 7[address] [place] [address] Care Team Providers Care Retail Wireless Associate Name Role Phone Sree Patel KINGS Primary Care Provider [phone] Allergies Active Allergy Reactions Criticality Noted Date [...] Products High 2 Other Reaction(s): SWELLING Medications hydrOXYzine pamoate (Vistaril) 25 MG capsule Take 50 mg by mouth if needed at bedtime. 2 Active DULoxetine (Cymbalta) [address] capsule Take 40 mg by mouth Once per day. 3 Active propranolol (Inderal) 20 MG tablet TAKE 1/2-1 TABLET BY MOUTH EVERY AM FOR ANXIETY AND 1 TAB IN THE EVENING NEEDED FOR ANXIETY 4 Active albuterol 108 (90 Base) MCG/ACT inhalerIndicatio ns:Moderate persistent asthma without complication Inhale 2 puffs every 6 (six) hours if needed for wheezing or shortness of breath. 18 g 1 4 Active Zuleika 30 MG tabletIndication s:Family planning Take 1 tab once as soon as possible after unprotected intercourse and within 5 days. Do not use more than once per menstrual cycle 1 tablet 11 4 Active ferrous sulfate (Fe Tabs) 325 (65 [...] 180 tablet 1 5 08/05/19 26 Active Diclofenac Sodium 1 % gel Apply 2 g topically if needed in the morning, at noon, in the evening, and at bedtime (pain). 150 g 3 5 Active omeprazole (PriLOSEC) [address] capsuleIndicatio ns:Heartburn TAKE 1 CAPSULE BY MOUTH 30-60 MINUTES BEFORE A MEAL, DO NOT CRUSH OR CHEW. 90 capsule 5 Active EPINEPHrine (Epipen) 0.3 MG/0.3ML injection syringeIndicatio ns:Food allergy Inject 0.3 mL (0.3 mg) as directed 1 (one) time for 1 dose. 2 each 1 5 Active valACYclovir (Valtrex) 1 g tabletIndication s:HSV infection 1 tab daily for 5 days per flare as needed 90 tablet 1 5 Active cyclobenzaprine (Flexeril) 5 MG tabletIndication s:Acute midline low back pain, unspecified whether sciatica present Take 1 or 2 tabs as needed at bedtime for back pain 30 tablet 5 Active amitriptyline (Elavil) 50 MG tablet Take 50 mg by mouth at bedtime. 5 Active Active Problems Problem Noted Date [...] 2023 Periodontal disease 10/12/2023 Fracture of dental moravian 10/12/2023 Periapical abscess without sinus 10/12/2023 Obstructive [...] Encounters Date Type Department Care Team Description 02/14/2025 Orders Only GENERIC EXTERNAL DATA DEPARTMENT Provider, Generic External Data 02/13/[address] [address] Sree Patel ANP nov recall 01/24/2025 Orders Only [facility] External Provider, [facility] 12/29/2024 2:30 PM EDT Office Visit [address] [address] Sree Patel ANP Need for hepatitis B vaccination (Primary Dx); Food allergy; HSV infection; Acute midline low back pain, unspecified whether sciatica present 12/29/2024 Travel 12/29/[address] [address] Sree Patel ANP 12/28/[address] [address] Sree Patel ANP chart prep 12/21/2024 10:30 AM EDT Office Visit [facility] ADULT DENTAL [address] [place] [phone] Michael iBswas DDS Dental caries (Primary Dx) 12/19/2024 Results Follow-Up [address] [address] Sree Patel ANP Hepatitis B Core Antibody, Total, Hepatitis B surface antigen, EIA, Hepatitis B Surface Antibody, Qualitative, Additional followed-up results: 2 12/19/2024 Orders Only [address] [address] Sree Patel ANP On pre-exposure prophylaxis for HIV (Primary Dx); Encounter for pre-exposure prophylaxis for HIV 12/15/2024 Results Follow-Up [address] [address] Sue Mccarthy MD Bacterial Vaginosis, Chlamydia/N. Gonorrhoeae RNA, TMA, Urogenitial 12/15/2024 Orders Only GENERIC EXTERNAL DATA DEPARTMENT Provider, Generic External Data 11/23/[address] [address] Rocio Olguin RN 11/16/2024 9:30 AM EDT Office Visit [facility] ADULT DENTAL [address] [place] [address] Michael Biswas DDS Severe dental caries (Primary Dx) 11/16/2024 Refill [facility] MEDICINE [address] [place] [address] Sree Patel ANP Heartburn 11/15/2024 Travel 11/15/2024 Orders Only [address] [address] Rocio Olguin, KAEL On pre-exposure prophylaxis for HIV (Primary Dx); Need for hepatitis B screening test 11/15/2024 Orders Only [facility] [address] [place] [address] Rocio Olguin RN from Last 3 Months Immunizations Immunization Administration [...] is your housing situation today? I have nadiadulce mccain 12/29/[address] you [...] 12/29/2024 2:20 PM EDT Plan of Treatment Upcoming Encounters Date Type Department Care Team (Late st Contact Info) Description 04/20/2025 10:00 AM EST Office Visit [facility] MEDICINE [address] [place], [place] [phone] Sree Patel, ANP [address] [place], [place] [phone] Health Maintenance Due Date Last Done Comments Family Planning (PISQ) 2008 HPV Vaccines (1 - 3-dose series) 2008 Depression Screening 11/16/2024 11/17/2023, 11/17/19 24 Dental X-Ray: Full Mouth 11/29/2024 11/28/2021 COVID-19 Vaccine ( season) 2025 10/05/2020, 09/07/2020 Influenza Vaccine (#1) 2025 , 03/17/2019, 05/13/2018, Additional history exists Dental Oral Exam 03/29/2025 09/26/2024, , 02/21/2019 Dental Prophylaxis 03/29/2025 09/26/2024, 11/28/2021 Alcohol/Substance Use Screening 05/04/2025 05/04/2024 Dental X-Ray: Bitewings 09/27/2025 09/27/19 25, 11/28/2021, 02/21/2019, Additional history exists Disability Screening [...] Procedure Name Priority Date/Time Associated Diagnosis Comments HCG, TOTAL, QN Routine 02/14/2025 12:40 PM EDT TSH W/REFLEX TO FT4 Routine 02/14/2025 1 2:40 PM EDT CBC Routine 02/14/2025 12:40 PM EDT US PELVIS TRANSVAGINAL Routine 01/24/2025 2:11 PM EDT 2 O RESIN-BASED COMPOSITE - 1 SURF, [...] Recently Relevant to Health Maintenance Results * TSH with Reflex to Free T4 (02/14/2025 12:40 PM EDT) TSH reflex Free T4 0.86 0.32 - 4.0 uIU/mL [facility] 02/14/2025 12:4 0 PM EDT 02/14/2025 12:40 PM EDT us Generic External Data Provider LAB BLOOD ORDERAB LES Final Result [facility] [address] [place] [phone] * (ABNORMAL) CBC (02/14/2025 12:40 PM EDT) White Blood Count 8.8 4.8 - 10.8 X10*3/uL [facility] Red Blood Count 4.20 4.20 - 5.50 X10*6/uL [facility] Hemoglobin 9.7(L) 12.0 - 16.0 g/dl [facility] Hematocrit 32.2(L) 37.0 - 47.0 % [facility] Mean Corpuscular Volume 76.7(L) 80.0 - 98.0 fL [facility] Mean Corpuscular Hemoglobin 23.1(L) 27.0 - 33.0 pg [facility] Mean Corpuscular HGB Conc 30.1(L) 31.0 - 35.0 g/dl [facility] Red Cell Distribution Width 16.5(H) 11.0 - 16.0 % [facility] Platelet Count 461(H) 160 - 400 X10*3/uL [facility] Mean Platelet Volume 8.6(L) 9.4 - 12.3 fL [facility] NRBC Pct Auto 0.0 0.0 - 0.2 /100WBC [facility] NRBC Abs Auto 0.000 0.0 - 0.012 X10*3/uL [facility] 02/14/2025 12:4 0 PM EDT 02/14/2025 12:40 PM EDT us Generic External Data Provider LAB BLOOD ORDERAB LES Final Result [facility] [address] [place] [phone] [phone] * hCG, Total, Quantitative (02/14/2025 12:40 PM EDT) HCG Quantitative <2 mIU/mL [facility] Comment:Weeks post LMP Appro ximate hCG(Last Menstrual Period) Range (mIU/ml)3 - 4 weeks 9 - 1304 - 5 weeks 75 - 2,6005 - 6 weeks 850 - 20,8006 - 7 weeks 4000 - 100,2007 - 12 weeks 11,500 - 289,08570 - 16 weeks 18,300 - 137,79402 - 29 weeks (2nd trimester) 1,400 - 53,81290 - 41 weeks (3rd trimester) 940 - [...] Provider LAB BLOOD ORDERAB LES Final Result [facility] [address] [place] [phone] * US Pelvis Transvaginal (01/24/2025 2:11 PM EDT) Anatomical Region Laterality Modality Pelvis Ultrasound 01/24/2025 2:11 PM EDT Narrative 01/24/2025 3:09 PM EDT [address] [address] Ultrasound Report Signed Patient: Yani Bain MR#: [id number] : 1995 Acct:[id number] Age/Sex: 29 / F ADM Date: 01/24/25 Loc: HO.US Attending Dr: Omari Ruiz MD Ordering Physician: Omari Ruiz MD Date of Service: 01/24/25 Procedure(s): US pelvic and transvaginal Accession Number(s): [id number] cc: SREE PATEL NP; Omari Ruiz MD EXAMINATION: US PELVIS CLINICAL INFORMATION: N93.9 - Abnormal uterine and vaginal bleeding, unspecified COMPARISON: March 16, 2024 TECHNIQUE: Ultrasound of the pelvis is performed using both transabdominal and transvaginal transducers along with Doppler. Transvaginal imaging is performed due to inadequate visualization transabdominally. FINDINGS: Uterus: The uterus is anteverted and measures 8.2 x 4.1 x 4.7 cm. The double wall endometrial thickness is 6 mm. The uterus is smooth in contour and has normal myometrial echogenicity. No visible fibroid. Adnexa: Both ovaries are visualized. There is normal color flow to the adnexa. There is no ovarian torsion. There is no pelvic ascites or fluid collection. Right ovary measures 2.6 x 1.8 x 1.9 cm. There is a dominant follicle. Left ovary measures 2.3 x 2.2 x 1.6 cm. US/US pelvic and transvaginal IMPRESSION: Unremarkable pelvic ultrasound Electronically signed by: Joseph Acosta MD 01/24/2025 03:06 PM EDT Dictated By: Joseph Acosta MD Signed By: <Electronically signed by Joseph Acosta MD in OV> 01/24/25 1506 DD/ 1411 TD/TT: 01/24/25 1424 Mobile Marketing Manager: Procedure Note Donotuseinterpreter, Image - 01/24/2025 [place] [address] Ultrasound Report Signed Patient: Ulysses Bain#: [id number] : 1995Acct:[id number] Age/Sex: 29 / FADM Date: 01/24/25 Loc: HO.US Attending Dr: Omari Ruiz MD Ordering Physician: Omari Ruiz MD Date of Service: 01/24/25 Procedure(s): US pelvic and transvaginal Accession Number(s): [id number] cc: SREE PATEL YARD COUPLER; Omari Ruiz MD EXAMINATION: US PELVIS CLINICAL INFORMATION: N93.9 - Abnormal uterine and vaginal bleeding, unspecified COMPARISON: March 16, 2024 TECHNIQUE: Ultrasound of the pelvis is performed using both transabdominal and transvaginal transducers along with Doppler. Transvaginal imaging is performed due to inadequate visualization transabdominally. FINDINGS: Uterus: The uterus is anteverted and measures 8.2 x 4.1 x 4.7 cm. The double wall endometrial thickness is 6 mm. The uterus is smooth in contour and has normal myometrial echogenicity. No visible fibroid. Adnexa: Both ovaries are visualized. There is normal color flow to the adnexa. There is no ovarian torsion. There is no pelvic ascites or fluid collection. Right ovary measures 2.6 x 1.8 x 1.9 cm. There is a dominant follicle. Left ovary measures 2.3 x 2.2 x 1.6 cm. US/US pelvic and transvaginal IMPRESSION: Unremarkable pelvic ultrasound Electronically signed by: Joseph Acosta MD 01/24/2025 03:06 PM EDT Dictated By: Joseph Acosta MD Signed By: <Electronically signed by Joseph Acosta MD in OV> 01/24/25 1506 DD/ 1411 TD/TT: 01/24/25 1424 Mobile Marketing Manager: [facility] External Provider IMG US PROCEDURES Final Result * (ABNORMAL) Bacterial Vaginosis (12/15/2024 1:53 PM EDT) TRICHOMONAS VAGINALIS DETECTION BY PCR NOT DETECTED Not Detect [facility] BACTERIAL VAGINOSIS DETECTION BY PCR POSITIVE(A) Negative [facility] Comment:The BV organism targ ets of [...] GROUP DETECTION BY PCR DETECTED(A) Not Detect [facility] Kaye glab krusei PCR NOT DETECTED Not Detect [facility] 12/15/2024 1:53 PM EDT 12/15/2024 4:33 PM EDT Generic External Data Provider LAB MICROBIOLOGY - GENERAL ORDERABLES Final Result [facility] [address] [place] [phone] * Chlamydia/N. Gonorrhoeae RNA, TMA, Urogenitial (12/15/2024 1:53 PM EDT) CT PCR NOT DETECTED Not Detect. [facility] Comment:A not detected test result does [...] psychologicalconsequences. NG PCR NOT DETECTED Not Detect. [facility] Comment:A not detected test result does [...] LAB MICROBIOLOGY - GENERAL ORDERABLES Final Result [facility] [address] [place] [phone] * Hepatitis B surface antigen, EIA (12/12/2024 11:47 AM EDT) Hepatitis B Surface Ag Negative Negative [facility] Blood Venous blood specimen / Unknown 12/12/2024 11:47 AM EDT 12/12/2024 1:43 PM EDT Sree Patel [facility] LAB BLOOD ORDERABLES Final Resul t Performing Organization Address City/[facility]/ZIP Co de Phone Number [facility] [address] [place] [phone] * Hepatitis B Core Antibody, Total (12/12/2024 11:47 AM EDT) Hepatitis B Core Antibody Nonreactive Nonreactive [facility] Blood Venous blood specimen / Unknown 12/12/2024 11:47 AM EDT 12/12/2024 1:43 PM EDT Sree Patel [facility] LAB BLOOD ORDERABLES Final Resul t Performing Organization Address [facility] Co de Phone Number [facility] [address] [place] [phone] * HIV-1 RNA, Quantitative, Real-Time PCR (12/12/2024 11:47 AM EDT) Pathologist [facility] HIV RNA PCR Qn Copies NOT DETECTED NOT DETECTED copies/mL [facility] HIV RNA PCR Qn Log Copies NOT DETECTED NOT DETECTED [facility] Comment:Result Units: Log co pies/mLThis test was performed using Real-Time Polymerase ChainReaction.Reportable Range: 20 copies/mL to 10,000,000 copies/mL(1.30 log copies/mL to 7.00 log copies/mL).THIS TEST WAS PERFORMED AT:[email or web address] [place] [phone] SLOAN MD Blood Venous blood specimen / Unknown 12/12/2024 11:47 AM EDT 12/12/2024 1:43 PM EDT Sree Patel [facility] LAB BLOOD ORDERABLES Final Resul t Performing Organization Address [facility]/ZIP Co de Phone Number [facility] [address] [place] [phone] * HIV-1/2 Antigen and Antibodies, Fourth Generation, with Reflexes (12/12/2024 11:47 AM EDT) HIV AB/AG Nonreactive Nonreactive [facility] Comment:HIV-1 p24 Ag and/or HIV-1/HIV-2 Ab not detected.A test result that is nonreactive does not exclude thepossibility of exposure to or infection with HIV-1 and/orHIV-2. Nonreactive results in this assay for individualswith prior exposure to HIV-1 and/or HIV-2 may be due toantigen and antibody levels that are below the limit ofdetection of this assay.The [facility] [employer] HIV Ag/Ab Combo assay result andsupplemental assay results should be interpreted inconjunction with the patient's clinical presentation,history and other laboratory results. If the results areinconsistent with clinical evidence, additional testing issuggested to confirm the result. Blood Venous blood specimen / Unknown 12/12/2024 11:47 AM EDT 12/12/2024 1:43 PM EDT Sree Patel [facility] LAB BLOOD ORDERABLES Final Resul t Performing Organization Address [facility] Co de Phone Number [facility] [address] [place] [phone] * Hepatitis B Surface Antibody, Qualitative (12/12/2024 11:47 AM EDT) Pathologist [facility] ~Hepatitis B Surface Antibody NONREACTIVE Nonreactive [facility] Comment:Nonreactive: < 8.00 mIU/mL Blood Venous blood specimen / Unknown 12/12/2024 11:47 AM EDT 12/12/2024 1:43 PM EDT Sree Patel [facility] LAB BLOOD ORDERABLES Final Resul t Performing Organization Address [facility] Co de Phone Number [facility] [address] [place] [phone] * Hepatic Function Panel (12/12/2024 11:47 AM EDT) Bilirubin, Total 0.3 0.0 - 1.0 mg/dL [facility] Bilirubin, Direct 0.1 0.0 - 0.5 mg/dL [facility] Aspartate Amino Transferase 21 5 - 31 U/L [facility] Alanine Aminotransferase 16 0 - 31 U/L [facility] Total Protein 7.3 6.5 - 8.0 g/dL [facility] Albumin Level 4.5 3.5 - 5.0 g/dL [facility] Alkaline Phosphatase 59 39 - 117 U/L [facility] Blood Venous blood specimen / Unknown 12/12/2024 11:47 AM EDT 12/12/2024 1:43 PM EDT [facility] LAB BLOOD ORDERABLES Final Resul t Performing Organization Address [facility] Co de Phone Number [facility] [address] [place] [phone] * Hepatitis C Ab (10/10/2024 10:29 AM EDT) Hepatitis C Antibody Nonreactive Nonreactive [facility] Comment:Antibodies to HCV no t detected; does not exclude early acuteHCV infection. 10/10/2024 10:2 9 AM EDT 10/10/2024 10:29 AM EDT [facility] External Data Provider LAB BLOOD ORDERAB LES Final Result Performing Organization Address [facility] Co ms Phone Number [facility] [address] [place] [phone] * (ABNORMAL) Lipid Panel, Standard (12/29/2023 2:00 PM EDT) Triglycerides 182(H) <150 mg/dL [facility] Comment:Desirable Triglyceri de: less than 150 mg/dLBorderline High Triglyceride 150-199 mg/dLHigh Triglyceride: 200-499 mg/dLVery High Triglyceride: greater than or equal to 5OO mg/dL Cholesterol 221(H) <200 mg/dL [facility] Comment:Desirable Cholestero l: less than 200 mg/dLBorderline High Cholesterol: 200-239 mg/dLHigh Cholesterol: greater than 239 mg/dL LDL Cholesterol Calculated 135(H) <100 mg/dL [facility] Comment:Desirable LDL: less than 100 mg/dLNear Optimal/Above Optimal LDL: 110- 129 mg/dLBorderline High LDL: 130-159 mg/dLHigh LDL: 160-189 mg/dLVery High LDL: greater than or equal to 190 mg/dL HDL Cholesterol 50 >40 mg/dL [facility] Comment:Desirable HDL: great er than 40 mg/dL Note: This HDL assay may give artificially low results in patients with liver disease. Blood Venous blood specimen / Unknown 12/29/2023 2:00 PM EDT 12/29/2023 4:46 PM EDT Sree [facility] LAB BLOOD ORDERABLES Final Resul t Performing Organization Address [facility] Co de Phone Number [facility] [address] [place] [phone] * Pap Smear (09/30/2023 12:00 AM EDT) Swab Omari Ruiz MD LAB CYTOLOGY ORDERABLES Final Re sult Performing Organization Address [facility] de Phone Number [facility] [address] [place] [phone] from Last 3 Months or Most Recently Relevant to Health Maintenance [facility] MEDICAID STAND ADULT [facility] STAND ADULT Care Teams Retail Wireless Associate Relationship Specialty Start Date End Date Sree Patel ANP [address] [place] [phone] PCP - General Family Medicine 04/13/20
--- OUTSIDE RECORDS SUMMARY | 2025-02-14 16:01 | XMS_ITS | Encounter Summary ---
Author Organization [facility] Address [address] [place] [address] [address] [place] [address] Care Team Providers Care Breakfast Host Name Role Phone Shirley Taylor Primary Care Provider [phone] Encounter Details Date Type Department Care Team (Latest Contact Info) Description 11/28/2021 Abstract [facility] CONVERSIONS Dental, Provider, DDS Social History [...] Description 04/20/2025 10:00 AM EST Office Visit [facility] MEDIC[facility] [address] [place] [address] Shirley Taylor ANP [address] [place] [address] documented as of this encounter Visit Diagnoses Not on filedocumented in this encounter Care Teams Breakfast Host Relationship Specialty Start Date End Date Shirley Taylor ANP [address] [place] [address] PCP - General Family Medicine 04/13/20 documented as of this encounter
--- OUTSIDE RECORDS SUMMARY | 2025-02-14 16:01 | XMS_ITS | Clinical Summary ---
Author Organization [facility] Address [address] [place] [phone] Phone Care Team Providers Care Can Runner Name Role Phone Unavailable Primary Care Provider [...] Vaccines (1 - 3-dose SCDM series) 2020 Influenza Vaccines (#1) 2024 COVID-19 Vaccine ( season) 2025 HIB Vaccines Completed 02/28/1995, 06/03, 02/28/1994, Additional [...]
== END 2025-02-14 12:31 | disposition home or self-care (01) ==
LOC: HO.HWS 11:48
PROVIDERS: PCP Nurse Practitioner Primary Care; Visit Provider Obstetrics & Gynecology
DX: N93.9 Abnormal uterine and vaginal bleeding, unspecified (principal); N94.9 Unspecified condition associated with female genital organs and menstrual cycle
CPT/HCPCS: 99213

== ENCOUNTER 2025-02-14 11:48 | Outpatient (REF) | payer MEDICAID, SELFPAY ==
[2025-02-14 14:08] LABS: Hematocrit 32.2 % (37.0-47.0); Hemoglobin 9.7 g/dl (12.0-16.0); Mean Corpuscular HGB Conc 30.1 g/dl (31.0-35.0); Mean Corpuscular Hemoglobin 23.1 pg (27.0-33.0); Mean Corpuscular Volume 76.7 fL (80.0-98.0); NRBC Abs Auto 0.000 X10*3/uL (0.0-0.012); NRBC Pct Auto 0.0 /100WBC (0.0-0.2); Platelet Count 461 X10*3/uL (160-400); Red Blood Count 4.20 X10*6/uL (4.20-5.50); White Blood Count 8.8 X10*3/uL (4.8-10.8)
== END 2025-02-14 11:49 | disposition home or self-care (01) ==
LOC: HO.LAB 11:48
PROVIDERS: PCP Nurse Practitioner Primary Care; Visit Provider Obstetrics & Gynecology
DX: N93.9 Abnormal uterine and vaginal bleeding, unspecified (principal); N94.9 Unspecified condition associated with female genital organs and menstrual cycle; Z32.00 Encounter for pregnancy test, result unknown
CPT/HCPCS: 36415; 84443; 84702; 85027; 99212

== ENCOUNTER 2025-04-12 16:09 | Outpatient (REF) | payer MEDICAID, SELFPAY ==
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
--- OUTSIDE RECORDS SUMMARY | 2025-04-12 18:58 | XMS_ITS | Clinical Summary ---
Author Organization [facility] Address [address] [place] [address] Care Team Providers Care Textile Clothing And Footwear Mechanic Name Role Phone Unavailable Primary Care Provider [...] Cervical Cancer Screening: P ap Smear 2014 HPV Vaccines (1 - 3-dose SCD M series) 2020 Depression Screening 06/01/2024 COVID-19 Vaccine (1 - 2024-2 6 season) 2025 Influenza Vaccine (#1) 2025 RSV Immunization Adult Patie nts (1 - 1-dose 75+ series) 2068 HIB Vaccines Aged Out No longer eligi [...]
--- OUTSIDE RECORDS SUMMARY | 2025-04-12 18:58 | XMS_ITS | Encounter Summary ---
Author Organization [employer] Address [address] [facility] 7t [place] [address] Care Team Providers Care Pug Mill Operator Helper Name Role Phone Taylor Shirley KU Primary Care Provider [phone] Encounter Details Date Type Department Care Team ([facility] st Contact Info) Description 11/15/[address] [facility] [address] [place] [address] Rocio Olguin, RN [address] [place] [address] Social History Tobacco Use Types Packs/Day Years [...] Description 04/20/2025 10:00 AM EST Office Visit [facility] [address] [place] [phone] Shirley Taylor ANP [address] [place] [address] documented as of this encounter Visit Diagnoses Not on filedocumented in this encounter Additional Health Concerns Assessment Noted Time PHQ-9 Depression Total Score: 6 11/17/19 24 9:40 AM EDT documented as of this encounter Care Teams Pug Mill Operator Helper Relationship Specialty Start Date End Date Shirley Taylor ANP [address] [place] [phone] PCP - General Family Medicine 04/13/20 documented as of this encounter
--- OUTSIDE RECORDS SUMMARY | 2025-04-12 18:58 | XMS_ITS | Encounter Summary ---
Author Organization [employer] [facility] Address [address] [place] [address] 7 [place] [address] Care Team Providers Care Weapons Specialist Name Role Phone Shirley Taylor Primary Care Provider [phone] Encounter Details Date Type Department Care Team (Latest Contact Info) Description 11/28/2021 Abstract [facility] CONVERSIONS Dental, Provider, DDS Social History Tobacco [...] Description 04/20/2025 10:00 AM EST Office Visit [facility] [address] [place] [address] Shirley Taylor ANP [address] [place] [address] documented as of this encounter Visit Diagnoses Not on filedocumented in this encounter Care Teams Weapons Specialist Relationship Specialty Start Date End Date Shirley Taylor ANP [address] [place] [address] PCP - General Family Medicine 04/13/20 documented as of this encounter
--- OUTSIDE RECORDS SUMMARY | 2025-04-12 18:58 | XMS_ITS | Encounter Summary ---
Author Organization [employer] Address [address] [facility] 7 [place] [address] Care Team Providers Care Automatic Folder Seamer Name Role Phone Shirley Taylor Primary Care Provider [phone] Reason for Visit * Reason Onset Date Comments Nurse Triage 09/26/2024 Encounter Details Date Type Department Care Team ([facility] st Contact Info) Description 09/26/2024 Telephone [facility] [address] [place], [place] [phone] Shirley Taylor ANP [address] [place] [address] Nurse Triage Social History Tobacco Use Types [...] 04/20/2025 10:00 AM EST Office Visit [facility] [address] [place] [address] Shirley Taylor ANP [address] [place] [address] documented as of this encounter Visit Diagnoses Not on filedocumented in this encounter Additional Health Concerns Assessment Noted Time PHQ-9 Depression Total Score: 6 11/17/19 24 9:40 AM EDT documented as of this encounter Care Teams Automatic Folder Seamer Relationship Specialty Start Date End Date Shirley Taylor ANP [address] [place] [address] PCP - General Family Medicine 04/13/20 documented as of this encounter
--- OUTSIDE RECORDS SUMMARY | 2025-04-12 18:59 | XMS_ITS | Clinical Summary ---
Author Organization [facility] Address [address] [place] [address] Phone Care Team Providers Care Pattern Fitter Name Role Phone Unavailable Primary Care Provider [...] this topic Meningococcal Vaccine Aged Out No adnny josephine eligible based on patient's age to complete this topic Pneumococcal Vaccine Aged Out No long er eligible based on patient's age to complete this topic
--- OUTSIDE RECORDS SUMMARY | 2025-04-12 18:59 | XMS_ITS | Encounter Summary ---
Author Organization [employer] Address [address] [facility] 7t [place] [address] Care Team Providers Care Friend Of The Court Name Role Phone Shirley Taylor Primary Care Provider [phone] Encounter Details Date Type Department Care Team (Latest Contact Info) Description 02/27/2025 Results Follow-Up [facility] [address] [place] [address] Shirley Taylor ANP [address] [place] [address] CBC, TSH with Reflex to Free T4, hCG, Total, Quantitative Social History Tobacco Use Types Packs/Day Years [...] Miscellaneous Notes * Result Encounter Note - KINGS Jones - 02/27/2025 5:30 PM EDT Discussed results w/ pt. She is following w/ MELLOWING MACHINE OPERATOR. documented in this encounter Plan of Treatment Upcoming Encounters Date Type Department Care Team (Late st Contact Info) Description 04/20/2025 10:00 AM EST Office Visit [facility] [address] [place] [address] Shirley Taylor ANP [address] [place] [address] documented as of this encounter Visit Diagnoses Not on filedocumented in this encounter Additional Health Concerns Assessment Noted Time PHQ-9 Depression Total Score: 6 11/17/19 24 9:40 AM EDT documented as of this encounter Care Teams Friend Of The Court Relationship Specialty Start Date End Date Shirley Taylor ANP [address] [place] [phone] PCP - General Family Medicine 04/13/20 documented as of this encounter
--- OUTSIDE RECORDS SUMMARY | 2025-04-12 18:59 | XMS_ITS | Encounter Summary ---
Author Organization [employer] Address [address] [facility] 7t [place] [address] Care Team Providers Care Field Operations Supervisor Name Role Phone Shirley Taylor KINGS Primary Care Provider Encounter Details Date Type Department Care Team (Latest Contact Info) Description 04/12/2025 Travel Social History Tobacco Use Types Packs/Day Years Used Date Smoking Tobacco: Former Cigarettes Passive Smoke Exposure: Past Smokeless Tobacco: Never Alcohol Use Standard Drinks/Week [...] Description 04/20/2025 10:00 AM EST Office Visit [facility] [address] [place] [address] Shirley Taylor ANP [address] [place] [address] documented as of this encounter Visit Diagnoses Not on filedocumented in this encounter Additional Health Concerns Assessment Noted Time PHQ-9 Depression Total Score: 6 11/17/19 24 9:40 AM EDT documented as of this encounter Care Teams Field Operations Supervisor Relationship Specialty Start Date End Date Shirley Taylor ANP [address] [place] [address] PCP - General Family Medicine 04/13/20 documented as of this encounter
--- OUTSIDE RECORDS SUMMARY | 2025-04-12 18:59 | XMS_ITS | Encounter Summary ---
Author Organization [facility] Address [address] [place] [phone] Phone Care Team Providers Care Registrar Assistant Name Role Phone Unavailable Primary Care Provider Unavailabl e Encounter Details Date Type Department Care Team ([facility] st Contact Info) Description 01/15/2017 Conversion Encounter [facility] - [address] [address] Social History Tobacco Use Types Packs/Day Years [...]
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
[2025-04-13 03:38] LABS: Bacterial Vaginosis PCR NEGATIVE (Negative); Candida Group PCR NOT DETECTED (Not Detect); Candida glab krusei PCR NOT DETECTED (Not Detect); Trichomonas vaginalis PCR NOT DETECTED (Not Detect)
[2025-04-13 04:09] LABS: CT PCR NOT DETECTED (Not Detect.); NG PCR NOT DETECTED (Not Detect.)
== END 2025-04-12 16:10 | disposition home or self-care (01) ==
LOC: HO.HHCLNP 16:09
PROVIDERS: Visit Provider Emergency Medicine
DX: N89.8 Other specified noninflammatory disorders of vagina (principal); Z20.2 Contact with and (suspected) exposure to infections with a predominantly sexual mode of transmission
CPT/HCPCS: 81515; 87491; 87591